=== PATIENT | male | born 1960 | race Hispanic/Latino ===

== ENCOUNTER → 2016-09-24 | Outpatient (CLI) | payer OTHER ==
[2016-09-24 14:30] LABS: ALBUMIN 4.2 GM/DL (3.2-5.2); ALKALINE PHOSPHATASE 76 U/L (45-117); ALT/SGPT 40 U/L (12-78); ANION GAP 8 MEQ/L (8-16); AST/SGOT 145 U/L (15-37); BILIRUBIN,TOTAL 0.7 MG/DL (0.2-1.0); BLOOD UREA NITROGEN 15 MG/DL (7-18); CALCIUM LEVEL 9.2 MG/DL (8.5-10.1); CARBON DIOXIDE LEVEL 28 MEQ/L (21-32); CHLORIDE LEVEL 106 MEQ/L (98-107); CHOLESTEROL LEVEL 180 MG/DL (<200); CREATININE FOR GFR 1.04 MG/DL (0.70-1.30); GLOMERULAR FILTRATION RATE > 60.0 (>56); GLUCOSE, FASTING 96 MG/DL (70-105); MAGNESIUM LEVEL 1.9 MG/DL (1.8-2.4); POTASSIUM SERUM 4.4 MEQ/L (3.5-5.1); SODIUM LEVEL 142 MEQ/L (136-145); TRIGLYCERIDES LEVEL 255 MG/DL (<150)
== END ==
LOC: M LAB 12:43
PROVIDERS: ATTEND Physician Assistant Medical
DX: E11.42 Type 2 diabetes mellitus with diabetic polyneuropathy (principal)

== ENCOUNTER → 2016-10-11 | Outpatient (CLI) | payer OTHER ==
--- NOTE | 2016-10-11 13:24 | REP ---
Urinary tract sonography and renal artery Doppler flow assessment: History: Systemic hypertension. Chronic kidney disease stage III. Proteinuria. Comparison CT images are from September 07, 2016. Sonographic findings: Scanning through the level of the urinary bladder shows no abnormality. Renal cortical echogenicity pattern is normal bilaterally. There is a 5.3 x 5.4 x 4.1 cm cyst laterally in the left mid kidney. There is another cyst in the left mid kidney measuring 2.4 x 2.3 x 2.4 cm. These are seen on CT. No renal mass is observed on either side. No hydronephrosis is seen on either side. No calculus is observed. Left renal dimensions of 13.1 x 6.8 x 6.3 cm. The right kidney measures 12.5 x 5.1 x 5.2 cm. Renal artery Doppler flow assessment: Peak systolic flow velocity in the abdominal aorta at the level of the main renal arteries is normal at 125.3 cm/sec. Peak systolic flow velocity in the left main renal artery is recorded at 135 .4 cm/sec and that in the right at 123.1 cm/sec. Renal to aortic flow velocity ratios are therefore normal at 1.0 on the right and 1.1 on the left. Resistive indices and acceleration times are measured in the intralobar arteries of the upper, mid and lower pole of each kidney and these values are normal bilaterally. Impression: There are two left renal cysts noted. No other morphologic abnormality noted. There is no renal artery Doppler flow evidence to suggest renal artery stenosis. Signed by Gama Hicks MD 10/11/2016 01:26 P
== END ==
LOC: M RAD 08:29
PROVIDERS: ATTEND Internal Medicine Cardiovascular Disease
DX: N18.2 Chronic kidney disease, stage 2 (mild) (principal); I12.9 Hypertensive chronic kidney disease with stage 1 through stage 4 chronic kidney disease, or unspecified chronic kidney disease; R80.9 Proteinuria, unspecified

== ENCOUNTER → 2016-11-01 | Outpatient (CLI) | payer OTHER ==
[2016-11-01 14:09] LABS: BASO % 0.9 % (0.0-1.0); EOS # 0.3 K/mm3 (0.0-0.50); EOS % 5.5 % (0.0-3.0); LARGE UNSTAINED CELL # 0.1 K/mm3 (0.0-0.4); LARGE UNSTAINED CELL % 2.4 % (0.0-4.0); LYMPH # 1.3 K/mm3 (1.5-4.5); LYMPH % 22.7 % (24.0-44.0); MEAN CORPUSCULAR HEMOGLOBIN 29.8 pg (27.0-33.0); MEAN CORPUSCULAR HGB CONC 34.3 g/dl (32.0-36.5); MEAN CORPUSCULAR VOLUME 87.1 fl (80.0-96.0); MONO # 0.4 K/mm3 (0.0-0.8); MONO % 8.3 % (0.0-5.0); NEUTROPHILS % 60.2 % (36.0-66.0); PLATELET COUNT, AUTOMATED 169 k/mm3 (150-450); RED CELL DISTRIBUTION WIDTH 13.4 % (11.5-14.5)
[2016-11-01 14:11] LABS: ALBUMIN 3.7 GM/DL (3.2-5.2); ALBUMIN/GLOBULIN RATIO 1.28 (1.00-1.93); ALKALINE PHOSPHATASE 68 U/L (45-117); ALT/SGPT 23 U/L (12-78); ANION GAP 7 MEQ/L (8-16); AST/SGOT 12 U/L (15-37); BILIRUBIN,TOTAL 0.9 MG/DL (0.2-1.0); BLOOD UREA NITROGEN 14 MG/DL (7-18); CALCIUM LEVEL 8.6 MG/DL (8.5-10.1); CARBON DIOXIDE LEVEL 28 MEQ/L (21-32); CHLORIDE LEVEL 105 MEQ/L (98-107); GLOMERULAR FILTRATION RATE > 60.0 (>56); GLUCOSE, FASTING 170 MG/DL (70-105); POTASSIUM SERUM 4.1 MEQ/L (3.5-5.1); SODIUM LEVEL 140 MEQ/L (136-145); TOTAL PROTEIN 6.6 GM/DL (6.4-8.2)
== END ==
LOC: M LAB 13:03
PROVIDERS: ATTEND Internal Medicine Gastroenterology
DX: K52.9 Noninfective gastroenteritis and colitis, unspecified (principal)

== ENCOUNTER → 2016-11-05 | Outpatient (CLI) | payer OTHER ==
[~2016-11-05] MED LIST: ABIL1TAB7 PO; BUSP10TA PO; DULO30CA PO; ELIQ5TAB PO; GABA-283 PO; GLIP10TA6 PO; HYDR-4274 PO; INSUH10VL SC; LEVO10VL IM; LISI-542 PO; LORA1SOL PO; METF1000 PO; METO-207 PO; RANI75TA9 PO; ROSU10TA PO; SPIR25TA2 PO; SYNT112T2 PO; TOUJ1.2I SC
[2016-11-05 10:59] LABS: ANION GAP 7 MEQ/L (8-16); BLOOD UREA NITROGEN 19 MG/DL (7-18); CALCIUM LEVEL 8.8 MG/DL (8.5-10.1); CARBON DIOXIDE LEVEL 30 MEQ/L (21-32); CHLORIDE LEVEL 105 MEQ/L (98-107); CREATININE FOR GFR 0.92 MG/DL (0.70-1.30); GLOMERULAR FILTRATION RATE > 60.0 (>56); GLUCOSE, FASTING 137 MG/DL (70-105); POTASSIUM SERUM 4.3 MEQ/L (3.5-5.1); SODIUM LEVEL 142 MEQ/L (136-145)
== END ==
LOC: M LAB 09:38
PROVIDERS: ATTEND Internal Medicine Cardiovascular Disease
DX: R80.0 Isolated proteinuria (principal)

== ENCOUNTER → 2016-11-18 | Outpatient (CLI) | payer OTHER ==
[~2016-11-18] VITALS: Ht 175.3 cm; Wt 118.8 kg
[~2016-11-18] MED LIST changes: +ALLE10TA2 PO; +DEXTROSE 50% 50 ML SYRINGE As Ordered ONE; +NS 1,000 ML IV SCH; +PROPOFOL 200 MG/20 ML VIAL As Ordered ONE
--- NOTE | 2016-11-18 15:26 | ROOR ---
Patient Name: Dragan Ayoub Procedure Date: 11/18/2016 3:01 PM Date of : 1960 Age: 56 Room: [facility] Gender: Male Note Status: Finalized Procedure: Colonoscopy Indications: Personal history of ulcerative colitis Providers: Manuel CAMPOS MD Referring MD: ANTOINETTE Ray Requesting Provider: Medicines: Monitored Anesthesia Care Complications: No immediate complications. Procedure: Pre-Anesthesia Assessment: - The heart rate, respiratory rate, oxygen saturations, blood pressure, adequacy of pulmonary ventilation, and response to care were monitored throughout the procedure. The Colonoscope was introduced through the anus and advanced to 5 cm into the ileum. The colonoscopy was performed without difficulty. The patient tolerated the procedure well. The quality of the bowel preparation was good. Findings: The perianal and digital rectal examinations were normal. The terminal ileum appeared normal. Segmental mild inflammation characterized by erythema and granularity was found in the mid rectum and in the distal rectum. Biopsies were taken with a cold forceps for histology. The exam was otherwise without abnormality on direct and retroflexion views. Biopsies were taken with a cold forceps in the rectum, in the sigmoid colon, in the descending colon, in the transverse colon and in the ascending colon for histology. Impression: - The perianal exam and examined portion of the ileum was normal. 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 Biopsied. - The examination was otherwise normal on direct and retroflexion views. - There is no visual evidence of colitis in the rest of the colon or terminal ileum. - Biopsies were taken with a cold forceps for histology in the rectum, in the sigmoid colon, in the descending colon, in the transverse colon and in the ascending colon. - (Ulcerative colitis is in remission, with mild residual proctitis present) Recommendation: - Resume Eliquis (apixaban) at prior dose today. 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 - To discuss todays findings, my office will call you in the next few days to schedule a follow up appointment. Manuel Campos MD Manuel CAMPOS MD 11/18/2016 3:25:38 PM This report has been signed electronically. Number of Addenda: 0 Note Initiated On: 11/18/2016 3:01 PM Estimated Blood Loss: Estimated blood loss: none.
[2016-11-18 15:40] VITALS: BP 145/84
== END | disposition home or self-care (01) ==
LOC: M OPP 12:53
PROVIDERS: ATTEND Internal Medicine Gastroenterology
DX: K51.90 Ulcerative colitis, unspecified, without complications (principal); K62.89 Other specified diseases of anus and rectum; I48.91 Unspecified atrial fibrillation; E11.9 Type 2 diabetes mellitus without complications; E03.9 Hypothyroidism, unspecified; R19.7 Diarrhea, unspecified; R12 Heartburn; M19.90 Unspecified osteoarthritis, unspecified site; M54.2 Cervicalgia; F41.9 Anxiety disorder, unspecified; F32.9 Major depressive disorder, single episode, unspecified; J45.909 Unspecified asthma, uncomplicated; G47.30 Sleep apnea, unspecified; R06.83 Snoring; Z88.0 Allergy status to penicillin; Z88.8 Allergy status to other drugs, medicaments and biological substances; Z79.01 Long term (current) use of anticoagulants; Z79.84 Long term (current) use of oral hypoglycemic drugs; Z79.4 Long term (current) use of insulin; Z79.899 Other long term (current) drug therapy; Z80.49 Family history of malignant neoplasm of other genital organs; F99 Mental disorder, not otherwise specified

== ENCOUNTER → 2016-12-04 | Outpatient (CLI) | payer OTHER ==
[~2016-12-04] MED LIST changes: -DEXTROSE 50% 50 ML SYRINGE As Ordered ONE; -NS 1,000 ML IV SCH; -PROPOFOL 200 MG/20 ML VIAL As Ordered ONE
--- NOTE | 2016-12-06 09:26 | REP ---
MRI BRAIN WITHOUT CONTRAST: HISTORY: Memory loss. Scattered punctate areas of increased signal intensity on T2-weighted images are present in the periventricular and subcortical white matter. This represents small vessel ischemic disease. There is no intraparenchymal hemorrhage, infarct, mass or midline shift. The ventricular system is normal in appearance. There is no extracerebral collection. Metal artifact is present overlying the left maxillary sinus and inferior left orbit. IMPRESSION: Minimal small vessel ischemic disease. Signed by Dragan Issa MD 12/06/2016 09:32 A
== END ==
LOC: M RAD 09:48
PROVIDERS: ATTEND Nurse Practitioner Psychiatric/Mental Health
DX: R41.3 Other amnesia (principal)

== ENCOUNTER → 2016-12-15 | Outpatient (CLI) | payer OTHER ==
[~2016-12-15] MED LIST changes: +CRES10TA32 PO; -ROSU10TA PO
--- NOTE | 2016-12-18 10:00 | SLEEPCENT ---
DATE OF PROCEDURE: 12/15/2016 Nocturnal polysomnography was performed for re-titration of pressure therapy in this patient with obstructive sleep apnea syndrome. For testing, a Respironics Nasal ComfortGel mask of medium size was used. 8 cm of water pressure were applied to the circuit and the lights were extinguished. 8 hours and 48 minutes of data were reviewed. There were 383 minutes of sleep identified. Sleep latency was prolonged at 38 minutes. Rapid eye movement (REM) latency was short at 39 minutes. Sleep architecture was fair with a period of wake between 12:30 and 1:45. Overall sleep efficiency was 73.3%. The patient's electrocardiogram (EKG) showed a sinus rhythm with an average heart rate of 56 beats per minute. Electroencephalogram (EEG) showed fairly normal waveforms for awake and sleep stages. Respiratory events were best palliated with CPAP at pressure of +10. Remaining measures of sleep physiology were normal. IMPRESSION: Obstructive sleep apnea syndrome (G47.33). RECOMMENDATION: Nightly use of pressure therapy 10 cm of water.
== END ==
LOC: M SLEEP 19:31
PROVIDERS: ATTEND Nurse Practitioner Adult Health
DX: G47.33 Obstructive sleep apnea (adult) (pediatric) (principal)

== ENCOUNTER → 2016-12-22 | Outpatient (REF) | payer OTHER ==
[2016-12-22 18:00] LABS: FOLATE 17.6 NG/ML (>5.4); FOLLICLE STIMULATING HORMONE 7.5 mIU/mL (1.4-18.1)
== END ==
LOC: M LAB REF 15:49
PROVIDERS: ATTEND Internal Medicine Endocrinology, Diabetes & Metabolism
DX: E29.1 Testicular hypofunction (principal); R53.83 Other fatigue

== ENCOUNTER → 2017-03-01 | Outpatient (REF) | payer OTHER ==
[2017-03-01 20:26] LABS: ALBUMIN 3.9 GM/DL (3.2-5.2); ALBUMIN/GLOBULIN RATIO 1.15 (1.00-1.93); ALKALINE PHOSPHATASE 78 U/L (45-117); ALT/SGPT 18 U/L (12-78); ANION GAP 5 MEQ/L (8-16); AST/SGOT 9 U/L (15-37); BILIRUBIN,TOTAL 0.4 MG/DL (0.2-1.0); BLOOD UREA NITROGEN 19 MG/DL (7-18); CALCIUM LEVEL 9.2 MG/DL (8.5-10.1); CARBON DIOXIDE LEVEL 27 MEQ/L (21-32); CHLORIDE LEVEL 107 MEQ/L (98-107); CREATININE FOR GFR 1.16 MG/DL (0.70-1.30); GLOMERULAR FILTRATION RATE > 60.0 (>56); GLUCOSE, FASTING 172 MG/DL (70-105); POTASSIUM SERUM 4.4 MEQ/L (3.5-5.1); SODIUM LEVEL 139 MEQ/L (136-145); TOTAL PROTEIN 7.3 GM/DL (6.4-8.2)
[2017-03-01 20:31] LABS: FREE T4 1.07 NG/DL (0.76-1.46)
[2017-03-01 20:46] LABS: BASO % 0.6 % (0.0-1.0); EOS # 0.2 K/mm3 (0.0-0.50); EOS % 2.8 % (0.0-3.0); LARGE UNSTAINED CELL # 0.2 K/mm3 (0.0-0.4); LARGE UNSTAINED CELL % 2.5 % (0.0-4.0); LYMPH % 25.4 % (24.0-44.0); MEAN CORPUSCULAR HGB CONC 34.1 g/dl (32.0-36.5); MONO # 0.6 K/mm3 (0.0-0.8); MONO % 7.1 % (0.0-5.0); NEUTROPHILS # 4.8 K/mm3 (1.8-7.7); NEUTROPHILS % 61.6 % (36.0-66.0); PLATELET COUNT, AUTOMATED 180 k/mm3 (150-450); RED CELL DISTRIBUTION WIDTH 12.7 % (11.5-14.5); WHITE BLOOD COUNT 7.8 K/mm3 (4.0-10.0)
== END ==
LOC: M SFHCADAM 14:55
PROVIDERS: ATTEND Physician Assistant Medical
DX: E11.42 Type 2 diabetes mellitus with diabetic polyneuropathy (principal)

== ENCOUNTER → 2017-06-10 | Outpatient (CLI) | payer OTHER ==
[~2017-06-10] MED LIST changes: -ABIL1TAB7 PO; +ABIL20TA5 PO; -HYDR-4274 PO; +HYDR50TA70 PO; -METF1000 PO; +METF10004 PO; -METO-207 PO; +METO1TAB7 PO
[2017-06-10 14:41] LABS: BLOOD UREA NITROGEN 18 MG/DL (7-18); GLOMERULAR FILTRATION RATE > 60.0 (>56)
== END ==
LOC: M LAB 13:51
PROVIDERS: ATTEND Physician Assistant Medical
DX: K86.89 Other specified diseases of pancreas (principal)

== ENCOUNTER → 2017-06-14 | Outpatient (CLI) | payer OTHER | LOC: M LAB 14:02 | PROVIDERS: ATTEND Nurse Practitioner Family | DX: E29.1 Testicular hypofunction (principal) ==

== ENCOUNTER → 2017-06-17 | Outpatient (CLI) | payer OTHER ==
[~2017-06-17] MED LIST changes: +PROHANCE 279.3MG/ML 15ML VIAL (A9576) As Ordered ONE; +PROHANCE 279.3MG/ML 5ML VIAL (A9576) As Ordered ONE
--- NOTE | 2017-06-17 15:09 | REP ---
MRI study of the abdomen and pancreas without and with IV gadolinium: History: Follow-up pancreatic "cyst". Comparison CT study is from September 07, 2016. MRI contrast dose: 23 mL of intravenous ProHance is administered. MRI technique: Axial and coronal T1 and T2-weighted scans were obtained. Sequences include spin-echo, fast spin echo, in and out of phase, and dynamically acquired post gadolinium enhanced 3-D thrive images. MRI findings: No focal hepatic or splenic lesion is seen. There are several simple cysts affecting the left kidney. The largest of these is at mid pole level measuring 5.1 x 5.4 x 5.0 cm. There is a small subcentimeter cyst in the right mid kidney. There is no evidence of hydronephrosis on either side. No renal mass lesion is seen. No adrenal lesion is observed on either side. No intrahepatic biliary ductal dilation is observed. The common bile duct is normal measuring 6 mm. The main pancreatic duct is normal in caliber. No pancreatic cyst or mass is seen. There is a lesion adjacent to the tail of the pancreas and the splenic hilus, which corresponds to the rim calcified lesion seen on CT. This is not a cyst. It is felt to be most compatible with a partially thrombosed splenic artery aneurysm. There is no evidence of progressive enlargement. It is actually less well displayed on MRI than it was on the previous CT study. There is no evidence of splenic infarct. No other pancreatic lesion is seen. There are collateral venous channels noted in the left upper quadrant. These could be traced back to the superior mesenteric vein, question portal hypertension. The patient's splenic vein is tiny consistent with occlusion or near occlusion of the splenic vein at the splenic hilus. The splenic artery is patent. No adenopathy is noted. No evidence of ascites. Post gadolinium enhanced images show no other abnormal gadolinium enhancement. Impression: 1. Several simple cysts left kidney. 2. The lesion in the pancreatic tail seen on the CT study from September 07, 2016 is felt to be most compatible with a splenic artery aneurysm partially thrombosed. There is, however, evidence of occlusion of the splenic vein with spleno-mesenteric venous collateral channels visible. The lesion is better displayed on CT. No pancreatic cyst or mass is evident. Signed by Gama Hicks MD 06/17/2017 03:58 P
== END ==
LOC: M RAD 12:38
PROVIDERS: ATTEND Internal Medicine Gastroenterology
DX: K86.89 Other specified diseases of pancreas (principal)
CPT/HCPCS: 74183; A9576

== ENCOUNTER → 2017-07-22 | Outpatient (CLI) | payer OTHER ==
[~2017-07-22] MED LIST changes: +ISOVUE-370 76% 100ML VIAL (Q9967) As Ordered ONE; -PROHANCE 279.3MG/ML 15ML VIAL (A9576) As Ordered ONE; -PROHANCE 279.3MG/ML 5ML VIAL (A9576) As Ordered ONE
--- NOTE | 2017-07-22 18:22 | REP ---
CT angiography of the abdomen with IV contrast: History: Splenic artery aneurysm. Comparison MRI study of 06/17/[address] study 09/07/2016. CT contrast dose: 100 ml of Isovue [address] technique: Helical scanning is acquired. 3 mm axial images are reformatted. Coronal and sagittal multiplanar re-formation images are generated. Coronal MIP images are generated on 3-D workstation along with surface rendered 3-D re-formation images. Non angiographic CT findings: The patient is post cholecystectomy. There are two cysts in the left kidney the largest of which measures 5.8 cm in greatest diameter. There is a granulomatous calcification in the left lobe of the liver. Mild fatty infiltration of the liver is seen. Vascular findings: The splenic vein is tiny and streak-like and may be occluded. There are collateral venous channels again noted in the left upper abdomen and epigastric region of the abdomen. No other venous abnormality is seen. There is some vascular calcification in the aorta especially infrarenal abdominal aorta. No significant renal artery celiac or superior mesenteric artery abnormality. There is a rim calcified lesion near the splenic hilus adjacent the pancreatic tail measuring 2.3 x 2.4 x 1.3 cm. This is actually smaller than on CT study from September 07, 2016. There is some dystrophic calcification in the caudal end of this otherwise rim calcified lesion. Just superior to this lesion is a very tortuous but patent splenic artery. The finding is compatible with a thrombosed splenic artery aneurysm. No intra-aneurysmal contrast enhancement is appreciated. No other significant vascular abnormality. 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 Tortuous splenic artery. Possibly related is a tiny streak-like splenic vein which is likely occluded as there are venous collaterals in the left upper quadrant as previously noted. No pancreatic mass is visible. Post cholecystectomy and left renal cysts are incidental findings. Signed by Gama Hicks MD 07/25/2017 06:48 P
== END ==
LOC: M RAD 16:09
PROVIDERS: ATTEND Surgery Vascular Surgery
DX: I72.8 Aneurysm of other specified arteries (principal); I70.0 Atherosclerosis of aorta; N28.1 Cyst of kidney, acquired
CPT/HCPCS: 74175; Q9967

== ENCOUNTER → 2017-07-29 | Outpatient (CLI) | payer OTHER ==
[~2017-07-29] MED LIST changes: -ISOVUE-370 76% 100ML VIAL (Q9967) As Ordered ONE
== END ==
LOC: M LAB 10:56
PROVIDERS: ATTEND Psychiatry & Neurology Psychiatry
DX: Z51.81 Encounter for therapeutic drug level monitoring (principal); Z79.899 Other long term (current) drug therapy

== ENCOUNTER → 2017-08-15 | Outpatient (CLI) | payer OTHER ==
[2017-08-15 10:19] LABS: BASO # 0.1 10^3/uL (0.0-0.2); EOS # 0.2 10^3/uL (0.0-0.50); EOS % 2.6 % (0.0-3.0); IMMATURE GRANULOCYTE % 0.3 % (0-0); LYMPH # 1.5 10^3/uL (1.5-4.5); LYMPH % 20.9 % (24.0-44.0); MEAN CORPUSCULAR HEMOGLOBIN 29.7 pg (27.0-33.0); MEAN CORPUSCULAR HGB CONC 34.7 g/dl (32.0-36.5); MEAN CORPUSCULAR VOLUME 85.5 fl (80.0-96.0); MONO # 0.6 10^3/uL (0.0-0.8); MONO % 8.1 % (0.0-5.0); NEUTROPHILS # 4.8 10^3/uL (1.8-7.7); NEUTROPHILS % 67.1 % (36.0-66.0); PLATELET COUNT, AUTOMATED 157 10^3/uL (150-450); WHITE BLOOD COUNT 7.2 10^3/uL (4.0-10.0)
[2017-08-15 11:23] LABS: ALBUMIN 3.8 GM/DL (3.2-5.2); ALBUMIN/GLOBULIN RATIO 1.19 (1.00-1.93); ALKALINE PHOSPHATASE 82 U/L (45-117); ALT/SGPT 17 U/L (12-78); ANION GAP 6 MEQ/L (8-16); AST/SGOT 9 U/L (7-37); BILIRUBIN,TOTAL 0.9 MG/DL (0.2-1.0); BLOOD UREA NITROGEN 16 MG/DL (7-18); CALCIUM LEVEL 8.9 MG/DL (8.5-10.1); CARBON DIOXIDE LEVEL 31 MEQ/L (21-32); CHLORIDE LEVEL 103 MEQ/L (98-107); CHOLESTEROL LEVEL 102 MG/DL (<200); CREATININE FOR GFR 1.12 MG/DL (0.70-1.30); GLOMERULAR FILTRATION RATE > 60.0 (>56); GLUCOSE, FASTING 91 MG/DL (70-105); POTASSIUM SERUM 4.1 MEQ/L (3.5-5.1); SODIUM LEVEL 140 MEQ/L (136-145); TRIGLYCERIDES LEVEL 156 MG/DL (<150)
== END ==
LOC: M LAB 09:30
PROVIDERS: ATTEND Physician Assistant Medical
DX: E11.42 Type 2 diabetes mellitus with diabetic polyneuropathy (principal); E66.01 Morbid (severe) obesity due to excess calories

== ENCOUNTER → 2017-09-23 | Outpatient (CLI) | payer OTHER ==
[2017-09-23 14:50] LABS: TESTOSTERONE 176 NG/DL (241-827)
== END ==
LOC: M LAB 10:44
DX: E29.1 Testicular hypofunction (principal)
CPT/HCPCS: 84403

== ENCOUNTER → 2017-12-15 | Outpatient (CLI) | payer OTHER ==
[2017-12-15 12:24] LABS: BASO # 0.1 10^3/uL (0.0-0.2); BASO % 1.1 % (0.0-1.0); EOS # 0.2 10^3/uL (0.0-0.50); EOS % 3.8 % (0.0-3.0); HEMOGLOBIN 15.2 g/dl (13.5-17.5); IMMATURE GRANULOCYTE % 0.5 % (0-3.0); LYMPH # 1.7 10^3/uL (1.5-4.5); LYMPH % 27.7 % (24.0-44.0); MEAN CORPUSCULAR HEMOGLOBIN 29.1 pg (27.0-33.0); MEAN CORPUSCULAR HGB CONC 33.8 g/dl (32.0-36.5); MEAN CORPUSCULAR VOLUME 86.2 fl (80.0-96.0); MONO # 0.6 10^3/uL (0.0-0.8); NEUTROPHILS # 3.5 10^3/uL (1.8-7.7); NEUTROPHILS % 57.9 % (36.0-66.0); PLATELET COUNT, AUTOMATED 170 10^3/uL (150-450); RED BLOOD COUNT 5.22 10^6/uL (4.30-6.10); RED CELL DISTRIBUTION WIDTH 12.4 % (11.5-14.5); WHITE BLOOD COUNT 6.1 10^3/uL (4.0-10.0)
[2017-12-15 12:54] LABS: ESTIMATED AVERAGE GLUCOSE 180 MG/DL (60-110); HEMOGLOBIN A1c 7.9 %
[2017-12-15 13:00] LABS: MALB URINE SIEMENS 16.7 MG/L; MAU/CREAT RATIO 8.2 MCG/MG (0.0-30.0)
[2017-12-15 13:01] LABS: ALBUMIN 4.2 GM/DL (3.2-5.2); ALBUMIN/GLOBULIN RATIO 1.27 (1.00-1.93); ALKALINE PHOSPHATASE 86 U/L (45-117); ALT/SGPT 23 U/L (12-78); ANION GAP 7 MEQ/L (8-16); AST/SGOT 12 U/L (7-37); BLOOD UREA NITROGEN 17 MG/DL (7-18); CALCIUM LEVEL 9.4 MG/DL (8.5-10.1); CARBON DIOXIDE LEVEL 28 MEQ/L (21-32); CHLORIDE LEVEL 107 MEQ/L (98-107); CHOLESTEROL LEVEL 141 MG/DL (<200); CHOLESTEROL RISK RATIO 3.279 (<5); CREATININE FOR GFR 0.98 MG/DL (0.70-1.30); FREE T4 1.15 NG/DL (0.76-1.46); GLOMERULAR FILTRATION RATE > 60.0 (>56); GLUCOSE, FASTING 112 MG/DL (70-100); HDL CHOLESTEROL 43 MG/DL (>40); LDL CHOLESTEROL 39.6 MG/DL (<100); NON-HDL-C 98 MG/DL; POTASSIUM SERUM 4.6 MEQ/L (3.5-5.1); SODIUM LEVEL 142 MEQ/L (136-145); TOTAL PROTEIN 7.5 GM/DL (6.4-8.2); TRIGLYCERIDES LEVEL 292 MG/DL (<150)
== END ==
LOC: M LAB 11:31
DX: E11.42 Type 2 diabetes mellitus with diabetic polyneuropathy (principal)
CPT/HCPCS: 84443

== ENCOUNTER → 2018-03-21 | Outpatient (CLI) | payer OTHER | LOC: M RAD 06:25 | DX: I72.8 Aneurysm of other specified arteries (principal) | CPT/HCPCS: 76705 ==

== ENCOUNTER → 2018-03-21 | Outpatient (CLI) | payer OTHER ==
[2018-03-21 07:30] LABS: HEMATOCRIT 46.5 % (42.0-52.0); HEMOGLOBIN 15.2 g/dl (13.5-17.5)
[2018-03-21 07:52] LABS: PSA SCREENING 0.48 NG/ML (< 4.0)
[2018-03-21 09:25] LABS: TESTOSTERONE 923 NG/DL (241-827)
== END ==
LOC: M LAB 06:59
DX: E29.1 Testicular hypofunction (principal)
CPT/HCPCS: 84403

== ENCOUNTER → 2018-03-24 | Outpatient (REF) | payer OTHER ==
[2018-03-24 19:44] LABS: ALBUMIN 3.9 GM/DL (3.2-5.2); ALBUMIN/GLOBULIN RATIO 1.18 (1.00-1.93); ALKALINE PHOSPHATASE 82 U/L (45-117); ALT/SGPT 29 U/L (12-78); ANION GAP 11 MEQ/L (8-16); AST/SGOT 16 U/L (7-37); BILIRUBIN,TOTAL 0.7 MG/DL (0.2-1.0); BLOOD UREA NITROGEN 18 MG/DL (7-18); CALCIUM LEVEL 8.6 MG/DL (8.5-10.1); CARBON DIOXIDE LEVEL 25 MEQ/L (21-32); CHLORIDE LEVEL 104 MEQ/L (98-107); CHOLESTEROL LEVEL 126 MG/DL (<200); CHOLESTEROL RISK RATIO 3.405 (<5); GLOMERULAR FILTRATION RATE > 60.0 (>56); GLUCOSE, FASTING 192 MG/DL (70-100); HDL CHOLESTEROL 37 MG/DL (>40); LDL CHOLESTEROL 35.6 MG/DL (<100); NON-HDL-C 89 MG/DL; SODIUM LEVEL 140 MEQ/L (136-145); TOTAL PROTEIN 7.2 GM/DL (6.4-8.2); TRIGLYCERIDES LEVEL 267 MG/DL (<150)
[2018-03-24 19:45] LABS: ESTIMATED AVERAGE GLUCOSE 163 MG/DL (60-110); HEMOGLOBIN A1c 7.3 %
== END ==
LOC: M SFHCADAM 15:07
DX: E11.42 Type 2 diabetes mellitus with diabetic polyneuropathy (principal)

== ENCOUNTER → 2018-03-29 | Outpatient (CLI) | payer OTHER ==
[2018-03-31 12:15] LABS: HEPATITIS B SURFACE ANTIGEN NEGATIVE (NEGATIVE)
[2018-04-01 00:05] LABS: QUANTIFERON GOLD TB Negative (Negative); TB Test (QFT) Antigen Minus Ni <0.01 IU/mL (.); TB Test (QFT) Mitogen 8.46 IU/mL (.); TB Test (QFT) Nil 0.14 IU/mL (.)
== END ==
LOC: M LAB 17:05
DX: R12 Heartburn (principal)
CPT/HCPCS: 87340

== ENCOUNTER 2018-03-31 08:16 | Emergency (ER) | payer OTHER ==
[2018-03-31] MEDS: METHOCARBAMOL 500 MG TAB PO (08:58)
[2018-03-31 09:07] LABS: BASO # 0.1 10^3/uL (0.0-0.2); EOS # 0.3 10^3/uL (0.0-0.50); EOS % 5.4 % (0.0-3.0); HEMATOCRIT 48.6 % (42.0-52.0); HEMOGLOBIN 16.2 g/dl (13.5-17.5); IMMATURE GRANULOCYTE % 0.2 % (0-3.0); LYMPH % 18.6 % (24.0-44.0); MEAN CORPUSCULAR HEMOGLOBIN 27.2 pg (27.0-33.0); MEAN CORPUSCULAR HGB CONC 33.3 g/dl (32.0-36.5); MEAN CORPUSCULAR VOLUME 81.7 fl (80.0-96.0); MONO # 0.4 10^3/uL (0.0-0.8); MONO % 8.2 % (0.0-5.0); NEUTROPHILS # 3.4 10^3/uL (1.8-7.7); NEUTROPHILS % 66.6 % (36.0-66.0); PLATELET COUNT, AUTOMATED 169 10^3/uL (150-450); RED BLOOD COUNT 5.95 10^6/uL (4.30-6.10); RED CELL DISTRIBUTION WIDTH 12.9 % (11.5-14.5); WHITE BLOOD COUNT 5.2 10^3/uL (4.0-10.0)
[2018-03-31 09:30] LABS: ANION GAP 8 MEQ/L (8-16); BLOOD UREA NITROGEN 15 MG/DL (7-18); CALCIUM LEVEL 8.5 MG/DL (8.5-10.1); CARBON DIOXIDE LEVEL 25 MEQ/L (21-32); CHLORIDE LEVEL 105 MEQ/L (98-107); CPK CREATINE PHOSPHOKINASE 112 U/L (39-308); CREATININE FOR GFR 1.24 MG/DL (0.70-1.30); GLOMERULAR FILTRATION RATE > 60.0 (>56); GLUCOSE, FASTING 127 MG/DL (70-100); MAGNESIUM LEVEL 1.8 MG/DL (1.8-2.4); POTASSIUM SERUM 4.2 MEQ/L (3.5-5.1); SODIUM LEVEL 138 MEQ/L (136-145)
[2018-03-31] MEDS: MAGNESIUM OXIDE 400 MG TAB (MAG-OX) PO (09:54)
== END 2018-03-31 10:33 | disposition home or self-care (01) ==
LOC: M ED 08:16
DX: M79.604 Pain in right leg (principal); E11.9 Type 2 diabetes mellitus without complications; I10 Essential (primary) hypertension; E78.5 Hyperlipidemia, unspecified; G47.30 Sleep apnea, unspecified; Z79.01 Long term (current) use of anticoagulants; Z79.84 Long term (current) use of oral hypoglycemic drugs; Z79.899 Other long term (current) drug therapy; Z88.0 Allergy status to penicillin; Z88.8 Allergy status to other drugs, medicaments and biological substances
CPT/HCPCS: 93971

== ENCOUNTER → 2018-04-13 | Outpatient (CLI) | payer OTHER | LOC: M ADAMS 11:19 | DX: M51.36 Other intervertebral disc degeneration, lumbar region (principal) | CPT/HCPCS: 72110 ==

== ENCOUNTER → 2018-04-18 | Outpatient (CLI) | payer OTHER ==
[2018-04-18 18:40] LABS: ANION GAP 7 MEQ/L (8-16); BLOOD UREA NITROGEN 15 MG/DL (7-18); CALCIUM LEVEL 9.5 MG/DL (8.5-10.1); CARBON DIOXIDE LEVEL 31 MEQ/L (21-32); CHLORIDE LEVEL 101 MEQ/L (98-107); CREATININE FOR GFR 1.45 MG/DL (0.70-1.30); GLOMERULAR FILTRATION RATE 53.2 (>56); GLUCOSE, FASTING 279 MG/DL (70-100); MAGNESIUM LEVEL 1.9 MG/DL (1.8-2.4); POTASSIUM SERUM 3.8 MEQ/L (3.5-5.1); SODIUM LEVEL 139 MEQ/L (136-145)
== END ==
LOC: M LAB 17:16
DX: I11.9 Hypertensive heart disease without heart failure (principal); I48.0 Paroxysmal atrial fibrillation
CPT/HCPCS: 83735

== ENCOUNTER → 2018-04-26 | Outpatient (CLI) | payer OTHER | LOC: M RAD 07:02 | DX: M51.36 Other intervertebral disc degeneration, lumbar region (principal) | CPT/HCPCS: 72148 ==

== ENCOUNTER → 2018-05-01 | Outpatient (CLI) | payer OTHER ==
[2018-05-01 18:30] LABS: ANION GAP 9 MEQ/L (8-16); BLOOD UREA NITROGEN 20 MG/DL (7-18); CALCIUM LEVEL 9.1 MG/DL (8.5-10.1); CARBON DIOXIDE LEVEL 29 MEQ/L (21-32); CHLORIDE LEVEL 100 MEQ/L (98-107); CREATININE FOR GFR 1.35 MG/DL (0.70-1.30); GLOMERULAR FILTRATION RATE 57.8 (>56); GLUCOSE, FASTING 211 MG/DL (70-100); POTASSIUM SERUM 4.2 MEQ/L (3.5-5.1); SODIUM LEVEL 138 MEQ/L (136-145)
== END ==
LOC: M LAB 16:54
DX: I11.9 Hypertensive heart disease without heart failure (principal); I48.0 Paroxysmal atrial fibrillation
CPT/HCPCS: 80048

== ENCOUNTER 2018-05-02 07:11 | Outpatient (RCR) | payer OTHER | END 2018-05-12 | LOC: M PT 07:11 | DX: Z51.89 Encounter for other specified aftercare (principal); M51.36 Other intervertebral disc degeneration, lumbar region | CPT/HCPCS: 97010 ==

== ENCOUNTER 2018-05-18 07:05 | Outpatient (RCR) | payer OTHER | END 2018-06-11 | LOC: M PT 07:05 | DX: Z51.89 Encounter for other specified aftercare (principal); M51.36 Other intervertebral disc degeneration, lumbar region | CPT/HCPCS: 97010 ==

== ENCOUNTER → 2018-06-12 | Outpatient (CLI) | payer OTHER ==
[2018-06-12 11:45] LABS: HEMATOCRIT 51.6 % (42.0-52.0); HEMOGLOBIN 17.1 g/dl (13.5-17.5)
[2018-06-12 12:24] LABS: TESTOSTERONE 988 NG/DL (241-827)
== END ==
LOC: M LAB 10:37
DX: E29.1 Testicular hypofunction (principal)
CPT/HCPCS: 84403

== ENCOUNTER 2018-09-28 12:43 | Emergency (ER) | payer OTHER ==
[~2018-09-28] VITALS: Ht 177.8 cm; Wt 124.1 kg
[~2018-09-28 12:43] MED LIST changes: +AMAN100C18 PO; +AMAN100T PO; +ATOR1TAB19 PO; +BASA100I SUBQ; +CHLO125TA PO; -GABA-283 PO; +GABA-845 PO; +HUMI40KI2 SUBQ; +INVE156I IM; +LORA-243 PO; +METO50TA7 PO; +OMEP40CA2 PO; +QUET1TAB8 PO; +RANI75TA15 PO; -RANI75TA9 PO; +ROBA500T PO; +SPIR-10 PO; -SPIR25TA2 PO
[2018-09-28] MEDS ORDERED: ACETAMINOPHEN 325 MG TAB PO ONE (13:15)
--- NOTE | 2018-09-28 13:33 | REP ---
CT Head without contrast HISTORY: Head injury COMPARISON: None There is no intraparenchymal hemorrhage, acute infarct, mass or midline shift. The ventricular system and cortical sulci are dilated consistent with minimal volume loss. A small amount of subarachnoid hemorrhage is present at the right vertex. There is no extra cerebral collection. There is no fracture. The visualized sinuses are clear. IMPRESSION: 1. Minimal volume loss. 2. There is a small amount of subarachnoid hemorrhage at the right vertex. Results were discussed with Dr. Solano at 01:30 p.m. this date. Electronically Signed by Dragan Issa MD 09/28/2018 01:25 P
[2018-09-28 13:43] LABS: BASO # 0.1 10^3/uL (0.0-0.2); BASO % 0.9 % (0.0-1.0); EOS # 0.8 10^3/uL (0.0-0.50); EOS % 7.4 % (0.0-3.0); HEMATOCRIT 41.4 % (42.0-52.0); HEMOGLOBIN 14.1 g/dl (13.5-17.5); LYMPH # 1.5 10^3/uL (1.5-4.5); LYMPH % 14.8 % (24.0-44.0); MEAN CORPUSCULAR HEMOGLOBIN 28.5 pg (27.0-33.0); MEAN CORPUSCULAR HGB CONC 34.1 g/dl (32.0-36.5); MEAN CORPUSCULAR VOLUME 83.6 fl (80.0-96.0); MONO # 1.1 10^3/uL (0.0-0.8); MONO % 10.3 % (0.0-5.0); NEUTROPHILS # 6.7 10^3/uL (1.8-7.7); NEUTROPHILS % 66.2 % (36.0-66.0); PLATELET COUNT, AUTOMATED 167 10^3/uL (150-450); RED BLOOD COUNT 4.95 10^6/uL (4.30-6.10); WHITE BLOOD COUNT 10.2 10^3/uL (4.0-10.0)
--- NOTE | 2018-09-28 13:56 | REP ---
Thoracic spine series: Three views. History: Trauma. Findings: Thoracic vertebral body heights are preserved and alignment is normal. There is diffuse degenerative disc disease with well established osteophyte formation anteriorly. On lateral film this appears to be contiguous or fused osteophyte formation. No fracture or collapse is seen. No paravertebral soft-tissue mass is seen. Pedicles and posterior elements are intact. Impression: Degenerative spondylosis changes. No traumatic abnormality noted. Electronically Signed by Gama Hicks MD 09/28/2018 06:09 P
[2018-09-28 13:58] LABS: INR 1.16
[2018-09-28 14:20] LABS: ALBUMIN 3.9 GM/DL (3.2-5.2); BILIRUBIN,TOTAL 0.7 MG/DL (0.2-1.0); CALCIUM LEVEL 8.9 MG/DL (8.5-10.1); CREATININE FOR GFR 2.38 MG/DL (0.70-1.30); POTASSIUM SERUM 5.5 MEQ/L (3.5-5.1); TOTAL PROTEIN 6.8 GM/DL (6.4-8.2)
[2018-09-28 15:32] VITALS: BP 154/83
== END 2018-09-28 15:34 | disposition short-term general hospital (02) ==
LOC: M ED 12:43 → EDBD 12:43 → M ED 15:34
DX: S06.6X0A Traumatic subarachnoid hemorrhage without loss of consciousness, initial encounter (principal); W00.9XXA Unspecified fall due to ice and snow, initial encounter; Y92.9 Unspecified place or not applicable; Y93.9 Activity, unspecified; Y99.9 Unspecified external cause status; E11.9 Type 2 diabetes mellitus without complications; J45.909 Unspecified asthma, uncomplicated; G47.30 Sleep apnea, unspecified; K51.90 Ulcerative colitis, unspecified, without complications; M47.894 Other spondylosis, thoracic region; Z79.01 Long term (current) use of anticoagulants; Z79.84 Long term (current) use of oral hypoglycemic drugs; Z79.899 Other long term (current) drug therapy; Z88.8 Allergy status to other drugs, medicaments and biological substances; Z88.0 Allergy status to penicillin

== ENCOUNTER → 2018-10-05 | Outpatient (REF) | payer OTHER ==
[2018-10-05 13:41] LABS: BASO # 0.1 10^3/uL (0.0-0.2); BASO % 1.1 % (0.0-1.0); EOS # 0.5 10^3/uL (0.0-0.50); HEMATOCRIT 43.7 % (42.0-52.0); HEMOGLOBIN 14.6 g/dl (13.5-17.5); LYMPH # 1.1 10^3/uL (1.5-4.5); LYMPH % 16.2 % (24.0-44.0); MEAN CORPUSCULAR HEMOGLOBIN 28.7 pg (27.0-33.0); MEAN CORPUSCULAR HGB CONC 33.4 g/dl (32.0-36.5); MEAN CORPUSCULAR VOLUME 85.9 fl (80.0-96.0); MONO # 0.6 10^3/uL (0.0-0.8); MONO % 9.2 % (0.0-5.0); NEUTROPHILS # 4.6 10^3/uL (1.8-7.7); NEUTROPHILS % 66.1 % (36.0-66.0); PLATELET COUNT, AUTOMATED 198 10^3/uL (150-450); RED BLOOD COUNT 5.09 10^6/uL (4.30-6.10)
[2018-10-05 15:30] LABS: ALBUMIN 4.1 GM/DL (3.2-5.2); ALT/SGPT 25 U/L (12-78); BILIRUBIN,TOTAL 0.6 MG/DL (0.2-1.0); BLOOD UREA NITROGEN 17 MG/DL (7-18); CALCIUM LEVEL 9.4 MG/DL (8.5-10.1); CARBON DIOXIDE LEVEL 24 MEQ/L (21-32); CHLORIDE LEVEL 98 MEQ/L (98-107); CHOLESTEROL LEVEL 143 MG/DL (<200); CHOLESTEROL RISK RATIO 3.666 (<5); CREATININE FOR GFR 1.29 MG/DL (0.70-1.30); FREE T4 1.13 NG/DL (0.76-1.46); GLOMERULAR FILTRATION RATE > 60.0 (>56); GLUCOSE, FASTING 254 MG/DL (70-100); HDL CHOLESTEROL 39 MG/DL (>40); LDL CHOLESTEROL 48 MG/DL (<100); NON-HDL-C 104 MG/DL; POTASSIUM SERUM 4.4 MEQ/L (3.5-5.1); SODIUM LEVEL 136 MEQ/L (136-145); TOTAL PROTEIN 7.3 GM/DL (6.4-8.2); TRIGLYCERIDES LEVEL 281 MG/DL (<150)
[2018-10-05 16:04] LABS: HEMOGLOBIN A1c 8.2 %
== END ==
LOC: M SFHCADAM 10:59
PROVIDERS: ATTEND Physician Assistant Medical
DX: E11.42 Type 2 diabetes mellitus with diabetic polyneuropathy (principal); I48.2 Chronic atrial fibrillation; G47.33 Obstructive sleep apnea (adult) (pediatric); E03.9 Hypothyroidism, unspecified

== ENCOUNTER 2018-10-10 11:48 | Day surgery (SDC) | payer OTHER ==
[~2018-10-10] VITALS: Ht 175.3 cm; Wt 122.9 kg
[~2018-10-10 11:48] MED LIST changes: +NS 1,000 ML IV SCH
[2018-10-10] MEDS ORDERED: fentaNYL 100 MCG/2 ML INJECTION (J3010) As Ordered ONE (13:50)
[2018-10-10] MEDS ORDERED: LIDOCAINE 2% INJ 100 MG/5 ML SDV (FOR ANES.) As Ordered ONE (13:50)
[2018-10-10] MEDS ORDERED: PROPOFOL 200 MG/20 ML VIAL As Ordered ONE (13:50)
--- NOTE | 2018-10-10 13:56 | ROOR ---
Patient Name: Dragan Ayoub Procedure Date: 10/10/2018 1:39 PM Date of : 1960 Age: 58 Room: [facility] Gender: Male Note Status: Finalized Procedure: Upper GI endoscopy Indications: Heartburn Providers: Manuel CAMPOS MD Referring MD: ANTOINETTE Ray Requesting Provider: Medicines: Monitored Anesthesia Care Complications: No immediate complications. Procedure: Pre-Anesthesia Assessment: - The heart rate, respiratory rate, oxygen saturations, blood pressure, adequacy of pulmonary ventilation, and response to care were monitored throughout the procedure. The Endoscope was introduced through the mouth, and advanced to the second part of duodenum. The upper GI endoscopy was accomplished without difficulty. The patient tolerated the procedure well. Findings: Patchy mild inflammation characterized by erythema and granularity was found in the gastric antrum. Biopsies were taken with a cold forceps for histology. The exam was otherwise without abnormality. Impression: - Mild gastritis. Biopsied. - The examination was otherwise normal. Recommendation: - Use Prilosec (omeprazole) 40 mg PO daily. - Telephone endoscopist for pathology results in 2 weeks. - (the script was sent to your pharmacy on file) Manuel Campos MD Manuel CAMPOS MD 10/10/2018 1:56:06 PM This report has been signed electronically. Number of Addenda: 0 Note Initiated On: 10/10/2018 1:39 PM Estimated Blood Loss: Estimated blood loss: none.
[2018-10-10 16:45] VITALS: BP 155/85
== END 2018-10-10 18:20 | disposition home or self-care (01) ==
LOC: M OPP 11:48
PROVIDERS: ATTEND Internal Medicine Gastroenterology
DX: R12 Heartburn (principal); K29.70 Gastritis, unspecified, without bleeding; E11.9 Type 2 diabetes mellitus without complications; G47.30 Sleep apnea, unspecified; E03.9 Hypothyroidism, unspecified; Z79.4 Long term (current) use of insulin; Z79.899 Other long term (current) drug therapy; Z88.0 Allergy status to penicillin; Z88.8 Allergy status to other drugs, medicaments and biological substances
CPT/HCPCS: 43239; 88305; J3010

== ENCOUNTER 2018-10-13 13:41 | Emergency (ER) | payer OTHER ==
[~2018-10-13] VITALS: Ht 175.3 cm; Wt 123.2 kg
[~2018-10-13 13:41] MED LIST changes: -NS 1,000 ML IV SCH
[2018-10-13 13:42] VITALS: BP 162/76
[2018-10-13] MEDS ORDERED: ROBA500T PO (14:25)
== END 2018-10-13 14:48 | disposition home or self-care (01) ==
LOC: M ED 13:41
DX: S16.1XXA Strain of muscle, fascia and tendon at neck level, initial encounter (principal); S29.012A Strain of muscle and tendon of back wall of thorax, initial encounter; V58.0XXA Driver of pick-up truck or van injured in noncollision transport accident in nontraffic accident, initial encounter; Y92.89 Other specified places as the place of occurrence of the external cause; I10 Essential (primary) hypertension; I48.91 Unspecified atrial fibrillation; K21.9 Gastro-esophageal reflux disease without esophagitis; F41.9 Anxiety disorder, unspecified; Z79.899 Other long term (current) drug therapy; Z79.01 Long term (current) use of anticoagulants; Z79.84 Long term (current) use of oral hypoglycemic drugs; Z88.0 Allergy status to penicillin; Z88.8 Allergy status to other drugs, medicaments and biological substances

== ENCOUNTER → 2018-10-27 | Outpatient (CLI) | payer OTHER ==
--- NOTE | 2018-10-27 08:41 | REP ---
CT Head without contrast HISTORY: Subarachnoid hemorrhage COMPARISON: 09/28/2018 There is no intraparenchymal hemorrhage, acute infarct, mass or midline shift. The ventricular system and cortical sulci are dilated consistent with minimal volume loss. There is no extra cerebral collection. There is no fracture. The visualized sinuses are clear. IMPRESSION: Minimal volume loss. Electronically Signed by Dragan Issa MD 10/27/2018 08:32 A
== END ==
LOC: M RAD 07:07
PROVIDERS: ATTEND Physician Assistant Medical
DX: G93.89 Other specified disorders of brain (principal)

== ENCOUNTER → 2018-11-02 | Outpatient (CLI) | payer OTHER ==
[2018-11-02 07:36] LABS: HEMATOCRIT 41.6 % (42.0-52.0)
== END ==
LOC: M LAB 07:07
PROVIDERS: ATTEND Nurse Practitioner Family
DX: E29.1 Testicular hypofunction (principal)

== ENCOUNTER → 2018-11-14 | Outpatient (CLI) | payer OTHER ==
[2018-11-14 11:59] LABS: BASO # 0.1 10^3/uL (0.0-0.2); BASO % 0.8 % (0.0-1.0); EOS # 0.3 10^3/uL (0.0-0.50); EOS % 5.1 % (0.0-3.0); HEMATOCRIT 41.5 % (42.0-52.0); LYMPH # 1.2 10^3/uL (1.5-4.5); LYMPH % 18.5 % (24.0-44.0); MEAN CORPUSCULAR HGB CONC 33.7 g/dl (32.0-36.5); MEAN CORPUSCULAR VOLUME 85.9 fl (80.0-96.0); MONO # 0.6 10^3/uL (0.0-0.8); MONO % 10.2 % (0.0-5.0); NEUTROPHILS # 4.1 10^3/uL (1.8-7.7); NEUTROPHILS % 65.1 % (36.0-66.0); PLATELET COUNT, AUTOMATED 152 10^3/uL (150-450); RED BLOOD COUNT 4.83 10^6/uL (4.30-6.10); WHITE BLOOD COUNT 6.3 10^3/uL (4.0-10.0)
[2018-11-14 12:49] LABS: ERYTHROCYTE SEDIMENTATION RATE 4 mm/hr (0-20)
[2018-11-14 13:11] LABS: ALBUMIN 4.1 GM/DL (3.2-5.2); ALT/SGPT 26 U/L (12-78); BILIRUBIN,TOTAL 0.6 MG/DL (0.2-1.0); BLOOD UREA NITROGEN 12 MG/DL (7-18); CALCIUM LEVEL 9.2 MG/DL (8.5-10.1); CARBON DIOXIDE LEVEL 28 MEQ/L (21-32); CHLORIDE LEVEL 102 MEQ/L (98-107); CREATININE FOR GFR 1.26 MG/DL (0.70-1.30); GLOMERULAR FILTRATION RATE > 60.0 (>56); GLUCOSE, FASTING 108 MG/DL (70-100); POTASSIUM SERUM 4.3 MEQ/L (3.5-5.1); RHEUMATOID FACTOR QUANT < 10.0 IU/ML (<15.0); SODIUM LEVEL 139 MEQ/L (136-145); TOTAL 25(OH) VITAMIN D 18.6 NG/ML (30.0-100.0); TOTAL PROTEIN 7.1 GM/DL (6.4-8.2)
[2018-11-15 10:27] LABS: ANTINUCLEAR ANTIBODIES DIRECT Negative (Negative)
== END ==
LOC: M LAB 11:17
PROVIDERS: ATTEND Psychiatry & Neurology Neurology
DX: R51 Headache (principal); R42 Dizziness and giddiness

== ENCOUNTER 2019-01-04 11:56 | Inpatient (IN) | payer OTHER ==
[~2019-01-04] VITALS: Ht 175.3 cm; Wt 119.1 kg
[~2019-01-04 11:56] MED LIST changes: -ALLE10TA2 PO; +BASA100I SC; -BASA100I SUBQ; +CRES10TA PO; -CRES10TA32 PO; -DULO30CA PO; +DULO30CA9 PO; +HUMI40KI2 SC; -HUMI40KI2 SUBQ; +LORA-753 PO; -LORA1SOL PO; +LORA5SOL12 PO
[2019-01-04] MEDS ORDERED: INVE1.75 IM (12:06)
[2019-01-04 13:12] LABS: BASO # 0.1 10^3/uL (0.0-0.2); BASO % 1.1 % (0.0-1.0); EOS # 0.9 10^3/uL (0.0-0.50); EOS % 9.1 % (0.0-3.0); HEMATOCRIT 42.6 % (42.0-52.0); HEMOGLOBIN 14.1 g/dl (13.5-17.5); LYMPH # 1.8 10^3/uL (1.5-4.5); LYMPH % 17.3 % (24.0-44.0); MEAN CORPUSCULAR HEMOGLOBIN 28.7 pg (27.0-33.0); MEAN CORPUSCULAR HGB CONC 33.1 g/dl (32.0-36.5); MEAN CORPUSCULAR VOLUME 86.6 fl (80.0-96.0); MONO # 1.2 10^3/uL (0.0-0.8); MONO % 11.4 % (0.0-5.0); NEUTROPHILS # 6.3 10^3/uL (1.8-7.7); NEUTROPHILS % 60.8 % (36.0-66.0); PLATELET COUNT, AUTOMATED 153 10^3/uL (150-450); RED BLOOD COUNT 4.92 10^6/uL (4.30-6.10); WHITE BLOOD COUNT 10.3 10^3/uL (4.0-10.0)
--- NOTE | 2019-01-04 13:29 | REP ---
CT brain without contrast: History: Altered mental status. Comparison brain CT study is from October 27, 2018. CT findings: Digital preliminary territory business manager radiograph is unremarkable. Bone window settings show no bony destructive lesion or skull fracture. Visualized paranasal sinuses are clear. There is mild vascular calcification in the distal carotid and distal vertebral arteries again noted. no intraorbital abnormality is seen. There is mild generalized volume loss again noted. No intracranial hemorrhage is seen. No mass, extra-axial fluid collection, or midline shift is observed. No infarct is seen. Ruth white differentiation pattern is intact. Impression: Vascular calcification and minimal diffuse atrophy again noted. No acute intracranial lesion. Electronically Signed by Gama Hicks MD 01/04/2019 01:21 P
[2019-01-04 14:03] LABS: ACETAMINOPHEN LEVEL < 2.0 UG/ML (10.0-30.0); ALBUMIN 4.1 GM/DL (3.2-5.2); ALT/SGPT 25 U/L (12-78); BILIRUBIN,DIRECT 0.3 MG/DL (0.0-0.2); BILIRUBIN,TOTAL 1.1 MG/DL (0.2-1.0); BLOOD UREA NITROGEN 33 MG/DL (7-18); CALCIUM LEVEL 9.2 MG/DL (8.5-10.1); CARBON DIOXIDE LEVEL 29 MEQ/L (21-32); CHLORIDE LEVEL 102 MEQ/L (98-107); CPK CREATINE PHOSPHOKINASE 1021 U/L (39-308); CREATININE FOR GFR 3.78 MG/DL (0.70-1.30); ETHYL ALCOHOL (ETHANOL) 0.003 % (0.000-0.010); GLOMERULAR FILTRATION RATE 17.6 (>56); GLUCOSE, FASTING 87 MG/DL (70-100); MB/CK RELATIVE INDEX 2.22 (< OR =4); POTASSIUM SERUM 4.4 MEQ/L (3.5-5.1); SALICYLATE LEVEL < 1.7 MG/DL (5.0-30.0); SODIUM LEVEL 139 MEQ/L (136-145); TOTAL PROTEIN 7.4 GM/DL (6.4-8.2); TROPONIN I < 0.02 NG/ML (< 0.10)
[2019-01-04] MEDS ORDERED: NS 1,000 ML IV ONE (14:15)
--- NOTE | 2019-01-04 14:55 | REP ---
Chest x-ray: Two views. History: Admission chest x-ray. Comparison chest x-ray: August 19, 2016. Findings: EKG monitoring electrodes are seen. The lungs are well inflated and clear. Pleural angles are sharp. Heart size is normal. There are degenerative changes in the thoracic spine. Impression: No acute disease. Electronically Signed by Gama Hicks MD 01/04/2019 02:48 P
[2019-01-04] MEDS ORDERED: GABA600T4 PO (14:56)
[2019-01-04] MEDS ORDERED: AMAN100T PO (14:56)
[2019-01-04] MEDS ORDERED: DRIS50003 PO (14:56)
[2019-01-04] MEDS ORDERED: LISI10TA4 PO (14:56)
[2019-01-04] MEDS ORDERED: HYDR50CA2 PO (14:56)
[2019-01-04] MEDS ORDERED: CHLO25TA PO (14:56)
[2019-01-04] MEDS ORDERED: BUSP15TA47 PO (14:56)
[2019-01-04] MEDS ORDERED: ELIQ5TAB PO (14:56)
[2019-01-04] MEDS ORDERED: DULO20CA27 PO (15:01)
[2019-01-04] MEDS ORDERED: DULO1CAP3 PO (15:01)
[2019-01-04] MEDS ORDERED: ADME100I SC (15:05)
[2019-01-04] MEDS ORDERED: TEST30SO TD (15:10)
[2019-01-04] MEDS ORDERED: DEXTROSE 50% 50 ML SYRINGE IV PRN (16:15)
[2019-01-04] MEDS ORDERED: GLUCAGON FOR INJ 1 MG VIAL (J1610) SC PRN (16:15)
[2019-01-04] MEDS: HumaLOG INSULIN (NovoLOG) PER UNIT SC SCH (17:30)
--- NOTE | 2019-01-04 18:25 | REP ---
REASON FOR EXAMINATION: Renal failure. COMPARISON EXAMINATION: 10/11/2016 which showed two left renal cysts. Right kidney measures 12.1 x 4.4 x 5.4 cm and the left kidney measures 13.7 x 7.9 x 6.2 cm. There are no solid masses. There is no hydronephrosis. There are two cysts in the left kidney which have increases in size slightly compared to the prior exam. The largest measures 3.8 x 3.3 x 4.5 cm and the other measures 2.4 x 2.5 x 2.9 cm. IMPRESSION: Slightly increase in size simple left renal cyst. There are no other significant changes compared to the prior exam. Electronically Signed by Gilberto Cage DO 01/04/2019 07:50 P
[2019-01-04] MEDS: GLUCOSE 4 GM CHEW TABLET PO PRN ×2 (18:27→18:42)
[2019-01-04] MEDS: busPIRone 10 MG TAB PO SCH (18:42)
[2019-01-04] MEDS: QUEtiapine FUMARATE 100 MG TAB PO SCH (18:42)
[2019-01-04] MEDS: METOPROLOL TART 50 MG TAB PO SCH (18:42)
[2019-01-04] MEDS ORDERED: HumaLOG INSULIN (NovoLOG) PER UNIT SC SCH (21:00)
[2019-01-04] MEDS ORDERED: LEVEMIR (INSULIN DETEMIR) 1 UNITS/0.01ML SC SCH (21:00)
[2019-01-04 21:18] LABS: AMPHETAMINES LEVEL URINE NEGATIVE (NEGATIVE); BARBITURATES URINE NEGATIVE (NEGATIVE); BENZODIAZEPINES URINE NEGATIVE (NEGATIVE); CANNABINOIDS URINE NEGATIVE (NEGATIVE); COCAINE METABOLITE URINE NEGATIVE (NEGATIVE); METHADONE URINE NEGATIVE (NEGATIVE); OPIATES URINE NEGATIVE (NEGATIVE); PHENCYCLIDINE URINE NEGATIVE (NEGATIVE)
[2019-01-04] MEDS: GABAPENTIN 100 MG CAP PO SCH (21:58)
[2019-01-04] MEDS: ATORVASTATIN 10 MG TAB PO SCH (21:59)
[2019-01-04] MEDS: DOCUSATE SODIUM 100 MG CAP PO SCH (21:59)
[2019-01-04 22:00] VITALS: BP 156/79
--- NOTE | 2019-01-04 22:40 | HPEPDOC ---
General Date of Admission 01/04/19 Chief Complaint The patient is a 58-year-old male admitted with a reason for visit of Allergic Reaction. Source: Patient, Old records, Other (correctional counselor/case manager) Exam Limitations: Mild cognitive slowing History of Present Illness 58 year old male with Schizoaffective disorder, Diabetes, Hypertension, HLD, obesity, MARY on CPAP, moderate persistent asthma, diabetic neuropathy, hypothyroidism, GERD, Afib, recurrent falls last was yesterday when his right leg became mushy and gave way. Subarachnoid hemorrhage in sep 2018 after a fall, severe lumber central canal stenosis was brought in by his correctional counselor/case manager for tremors, unsteady gait and increased hallucinations. Patient's psych medication was changed about 1 month ago and a different dosage of longer acting form of the medication was given. This change was in fact done due to his hallucinations which had increased even prior to the change . Over the past month his hallucinations have continued to increase and over the last week he has become very tremulous with difficulty in writing, difficulty in walking , staggering gait, frequent loss of balance with a fall yesterday. He also complains of difficulty in talking says that he cannot properly control his tongue. Today he had met his correctional counselor/case manager at the [facility] office to fill out some forms when the case manger noticed the tremulousness and gait abnormality and brought him to the ED. In the ED his CT head was negative for any acute events. it was initially felt that his symptoms were related to his psych medication change. however labs showed elevated BUN and creatine with elevated CPK. Patient was found to have Los and rhabdomyolysis and admitted for this. Home Medications Scheduled Adalimumab (Humira Pen) 40 Mg/0.8 Ml Kit, 40 MG SC Q2WK, (Reported) PT DUE TODAY FOR THIS MED. WAS UNABLE TO TAKE IT PRIOR TO ARRIVAL Amantadine HCl (Amantadine) 100 Mg Tablet, 200 MG PO QAM, (Reported) Amantadine HCl (Amantadine) 100 Mg Tablet, 100 MG PO DAILY, (Reported) TAKES @ NOON Apixaban (Eliquis) 5 Mg Tablet, 5 MG PO BID, (Reported) Atorvastatin Calcium (Atorvastatin Calcium) 10 Mg Tab, 10 MG PO QHS, (Reported) Buspirone HCl (Buspirone HCl) 15 Mg Tablet, 30 MG PO BID, (Reported) 0800,1700 Chlorthalidone (Chlorthalidone) 25 Mg Tablet, 12.5 MG PO DAILY, (Reported) Duloxetine HCl (Duloxetine HCl) 20 Mg Capsule.dr, 20 MG PO DAILY, (Reported) TAKE WITH 60MG CAP. 80MG TOTAL Duloxetine Hcl (Duloxetine HCl) 60 Mg Capsule.dr, 60 MG PO DAILY, (Reported) TAKE WITH 20MG CAP. 80MG TOTAL Ergocalciferol (Vitamin D2) (Drisdol) 50,000 Unit Capsule, 50,000 UNIT PO QWEEK, (Reported) MONDAYS Gabapentin (Gabapentin) 600 Mg Tablet, 600 MG PO TID, (Reported) 0800,1200,1700 Hydroxyzine Pamoate (Hydroxyzine Pamoate) 50 Mg Capsule, 100 MG PO QHS, (Reported) Insulin Glargine,Hum.rec.anlog (Basaglar Kwikpen U-100) 100 Unit/Ml Inj, 50 UNITS SC QHS, (Reported) Insulin Lispro (Admelog) 100 Unit/1 Ml Vial, SC AC, (Reported) PER SLIDING SCALE Levothyroxine Sodium (Synthroid) 112 Mcg Tab, 112 MCG PO DAILY, (Reported) Lisinopril (Lisinopril) 10 Mg Tablet, 10 MG PO DAILY, (Reported) Loratadine (Loratadine) 10 Mg Tab, 10 MG PO QPM, (Reported) TAKES @ 1700 Metformin HCl (Metformin HCl) 1,000 Mg Tab, 1,000 MG PO BID, (Reported) 0800,1700 Metoprolol Tartrate (Metoprolol Tartrate) 50 Mg Tab, 50 MG PO BID, (Reported) 0800,1700 Omeprazole (Omeprazole) 40 Mg Cap, 40 MG PO DAILY, (Reported) Paliperidone Palmitate (Invega Trinza) 819 Mg/2.625 Ml Syringe, 819 MG IM Q3M, (Reported) Quetiapine Fumarate (Quetiapine Fumarate) 100 Mg Tab, 100 MG PO QPM, (Reported) TAKES @ 1700 Spironolactone (Spironolactone) 25 Mg Tab, 12.5 MG PO DAILY, (Reported) Testosterone (Testosterone) 30 Mg/1.5 Ml Kim.md.visualization developer, 30 MG TD QHS, (Reported) APPLY TO THE UNDERARMS Allergies Coded Allergies: Penicillins (Verified Allergy, Unknown, 01/04/19) mesalamine (Verified Allergy, Unknown, lialda, 01/04/19) fluoxetine (Verified Adverse Reaction, Mild, hallucinations, 01/04/19) Past Medical History Medical History Schizoaffective disorder, Diabetes, Hypertension, HLD, obesity, MARY on CPAP, moderate persistent asthma, diabetic neuropathy, hypothyroidism, GERD, Afib, recurrent falls, Lumber central canal stenosis, ulcerative colitis, allergic rhinitis, diastolic dysfunction Surgical History cholecystectomy tonsillectomy Social History * Smoker: Denies Alcohol: Denies Drugs: denies A-FIB/CHADSVASC A-FIB History Current/History of A-Fib/PAF?: Yes Current Oral Anticoagulant The: Yes Review of Systems Constitutional: Reports: Weakness, Fatigue; Denies: Chills, Fever, Malaise, Night Sweats Eyes: Denies: Pain, Vision change, Conjunctivae inflammation, Eyelid inflammation, Redness, Other ENT: Denies: Head Aches, Ear Pain, Dysphagia, Sinus Congestion, Post Nasal Drip, Sore Throat, Epistaxis, Other Symptoms Skin: Denies: Rash, Lesions, Jaundice, Bruising, Itching, Dry, Breakdown, Nail Changes, Other Pulmonary: Denies: Dyspnea, Cough, Pleuritic Chest Pain, Other Symptoms Cardiovascular: Denies: Chest Pain, Palpitations, Orthopnea, Paroxysmal Noc. Dyspnea, Edema, Lt Headedness, Other Symptoms Gastrointestinal: Denies: Nausea, Vomiting, Abdominal Pain, Diarrhea, Constipation, Melena, Hematochezia, Other Symptoms Genitourinary: Reports: Other Symptoms (decreased urination) Hematologic: Denies: Bruising, Bleeding Excessively, Petecchia, Purpura, Enlarged Lymph Nodes, Other Hematologic Musculoskeletal: Reports: Leg Pain, Muscle Pain Neurological: Reports: Weakness, Incoordination, Change in speech, Other Symptoms (tremors) Psych: Reports: Other Psych (auditory and visual hallucinations) Physical Examination General Exam: Positive: Alert, Cooperative, No Acute Distress Eye Exam: Positive: PERRLA, Conjunctiva & lids normal, EOMI; Negative: Sclera icteric ENT Exam: Positive: Mucous membr. moist/pink, Tongue Midline Neck Exam: Positive: Supple; Negative: JVD, thyromegaly Chest Exam: Positive: Clear to auscultation, Normal air movement Heart Exam: Positive: Rate Normal, Regular Rhythm, Normal S1, Normal S2; Negative: Murmurs, Rubs Telemetry: Positive: No significant arrhythmia, Sinus Abdomen Exam: Positive: Normal bowel sounds, Soft; Negative: Tenderness, Hepatospenomegaly Extremity Exam: Positive: Normal pulses; Negative: Clubbing, Cyanosis, Edema Skin Exam: Positive: Rash (seborrhic dematitis of the face and scalp), Pruritus Psych Exam: Positive: Memory Intact Vital Signs Vital Signs Date Time Temp Pulse Resp B/P (MAP) Pulse Ox O2 Delivery O2 Flow Rate FiO2 01/04/19 15:30 60 147/71 (96) 100 01/04/19 11:58 97.4 18 Room Air Laboratory Data Labs 24H Laboratory Tests 2 01/04/19 12:57: Immature Granulocyte % (Auto) 0.3, White Blood Count 10.3H, Red Blood Count 4.92, Hemoglobin 14.1, Hematocrit 42.6, Mean Corpuscular Volume 86.6, Mean Corpuscular Hemoglobin 28.7, Mean Corpuscular Hemoglobin Concent 33.1, Red Cell Distribution Width 12.9, Platelet Count 153, Neutrophils (%) (Auto) 60.8, Lymp hocytes (%) (Auto) 17.3L, Monocytes (%) (Auto) 11.4H, Eosinophils (%) (Auto) 9.1H, Basophils (%) (Auto) 1.1H, Neutrophils # (Auto) 6.3, Lymphocytes # (Auto) 1.8, Monocytes # (Auto) 1.2H, Eosinophils # (Auto) 0.9H, Basophils # (Auto) 0.1, Nucleated Red Blood Cells % (auto) 0.0, Anion Gap 8, Glomerular Filtration Rate 17.6L, Calcium Level 9.2, Aspartate Amino Transf (AST/SGOT) 39H, Alanine Aminotransferase (ALT/SGPT) 25, Alkaline Phosphatase 76, Total Bilirubin 1.1H, Direct Bilirubin 0.3H, Total Creatine Kinase 1021H, Creatine Kinase MB 23.0H, Creatine Kinase MB Relative Index 2.22, Troponin I < 0.02, Total Protein 7.4, Albumin 4.1, Albumin/Globulin Ratio 1.24, Thyroid Stimulating Hormone (TSH) 1.430, Salicylates Level < 1.7L, Acetaminophen Level < 2.0L, Ethyl Alcohol Level 0.003 CBC/BMP Laboratory Tests 01/04/19 12:57 Red Blood Count 4.92, Mean Corpuscular Volume 86.6, Mean Corpuscular Hemoglobin 28.7, Mean Corpuscular Hemoglobin Concent 33.1, Red Cell Distribution Width 12.9, Neutrophils (%) (Auto) 60.8, Lymphocytes (%) (Auto) 17.3 L, Monocytes (%) (Auto) 11.4 H, Eosinophils (%) (Auto) 9.1 H, Basophils (%) (Auto) 1.1 H, Neutrophils # (Auto) 6.3, Lymphocytes # (Auto) 1.8, Monocytes # (Auto) 1.2 H, Eosinophils # (Auto) 0.9 H, Basophils # (Auto) 0.1 Assessment/Plan 58 year old male with Schizoaffective disorder, Diabetes, Hypertension, HLD, obesity, MARY on CPAP, moderate persistent asthma, diabetic neuropathy, hypothyroidism, GERD, Afib, recurrent falls last was yesterday when his right leg became mushy and gave way. Subarachnoid hemorrhage in sep 2018 after a fall, severe lumber central canal stenosis was brought in by his correctional counselor/case manager for tremors, unsteady gait and increased hallucinations. Patient's psych medication was changed about 1 month ago and a different dosage of longer acting form of the medication was given. This change was in fact done due to his hallucinations which had increased even prior to the change . Over the past month his hallucinations have continued to increase and over the last week he has become very tremulous with difficulty in writing, difficulty in walking , staggering gait, frequent loss of balance with a fall yesterday. He also complains of difficulty in talking says that he cannot properly control his tongue. Today he had met his correctional counselor/case manager at the [facility] office to fill out some forms when the case manger noticed the tremulousness and gait abnormality and brought him to the ED. In the ED his CT head was negative for any acute events. it was initially felt that his symptoms were related to his psych medication change. however labs showed elevated BUN and creatine with elevated CPK. Patient was found to have Los and rhabdomyolysis and admitted for this. LOS renal US does not show any obstruction Most probably poor oral intake in view of his aggravation of hallucinations and schizoaffective disorder on the back ground of Lisinopril, diuretics. will continue with IVF. Monitor intake and output. denies any use of NSAIDS or any antibiotics recently. though noted to have high peripheral eosinophilia. will get urine eosinophils. Rhabdomyolysis due to falls at home. May also be due to tremor and rigidity going on for about a month after the medication change. will continue with IVF. Diabetes with DIabetic neuropathy will monitor FS and put him on lispro as per sliding sclae . will also give very low dose of levemir. will hold metformin due to renal failure will reduce gabapentin dosage due renal failure Hypertension will hold lisinopril and diuretics continue metoprolol will give amlodipine in its place Hypothyroid will continue synthroid Scizoaffective disorder continue with home meds currently on Invega, seroquel, buspirone, cymbalta Crohn's disease on Humira as an outpateint GERD continue omeprazole. Paroxysmal Afib now in sinus rhythm continue metoprolol and eliquis Hyperlipidemia on stain DVT prophylaxis has been ordered. Plan / VTE VTE Prophylaxis Ordered?: Yes NIKA SETH MD Jan 04, 2019 16:26
[2019-01-04] MEDS: NS 1,000 ML IV SCH (23:07)
[2019-01-05] MEDS ORDERED: ACETAMINOPHEN TAB 650MG DOSE (2X325MG) PO PRN (02:30)
[2019-01-05 06:00] VITALS: BP 132/60
[2019-01-05 06:03] LABS: BASO # 0.1 10^3/uL (0.0-0.2); BASO % 1.3 % (0.0-1.0); EOS # 0.7 10^3/uL (0.0-0.50); HEMATOCRIT 38.7 % (42.0-52.0); HEMOGLOBIN 12.7 g/dl (13.5-17.5); LYMPH # 1.5 10^3/uL (1.5-4.5); LYMPH % 23.6 % (24.0-44.0); MEAN CORPUSCULAR HEMOGLOBIN 28.5 pg (27.0-33.0); MEAN CORPUSCULAR HGB CONC 32.8 g/dl (32.0-36.5); MEAN CORPUSCULAR VOLUME 86.8 fl (80.0-96.0); MONO # 0.8 10^3/uL (0.0-0.8); MONO % 12.7 % (0.0-5.0); NEUTROPHILS # 3.1 10^3/uL (1.8-7.7); NEUTROPHILS % 50.2 % (36.0-66.0); PLATELET COUNT, AUTOMATED 145 10^3/uL (150-450); RED BLOOD COUNT 4.46 10^6/uL (4.30-6.10); WHITE BLOOD COUNT 6.2 10^3/uL (4.0-10.0)
[2019-01-05] MEDS: LEVOTHYROXINE 112MCG TABLET (0.112MG) PO SCH (06:16)
[2019-01-05 06:29] LABS: CALCIUM LEVEL 9.1 MG/DL (8.5-10.1); CREATININE FOR GFR 1.96 MG/DL (0.70-1.30); GLOMERULAR FILTRATION RATE 37.6 (>56); POTASSIUM SERUM 3.9 MEQ/L (3.5-5.1)
[2019-01-05] MEDS: OMEPRAZOLE 20 MG CAP PO SCH (09:02)
[2019-01-05] MEDS: AMANTADINE 100 MG CAP PO SCH ×2 (09:02→12:32)
[2019-01-05] MEDS: DULoxetine 30 MG CAP (CYMBALTA) PO SCH (09:03)
[2019-01-05] MEDS: GABAPENTIN 100 MG CAP PO SCH ×3 (09:03→21:58)
[2019-01-05] MEDS: busPIRone 10 MG TAB PO SCH ×2 (09:03→16:50)
[2019-01-05] MEDS: METOPROLOL TART 50 MG TAB PO SCH ×2 (09:04→16:56)
[2019-01-05] MEDS: amLODIPine 10 MG TAB PO SCH (09:04)
[2019-01-05] MEDS: APIXABAN 5 MG TAB (ELIQUIS) PO SCH ×2 (09:04→21:58)
[2019-01-05] MEDS: HumaLOG INSULIN (NovoLOG) PER UNIT SC SCH ×3 (09:05→21:00)
[2019-01-05] MEDS: DOCUSATE SODIUM 100 MG CAP PO SCH ×2 (09:05→21:58)
--- NOTE | 2019-01-05 12:09 | IPNPDOC ---
Subjective Date Seen The patient was seen on 01/05/19. Subjective Chief Complaint/HPI Feels less shaky today. No new complaints Constitutional: Denies: Chills, Fever Pulmonary: Denies: Dyspnea, Cough Cardiovascular: Denies: Chest Pain, Palpitations, Orthopnea Gastrointestinal: Denies: Nausea, Vomiting, Abdominal Pain, Diarrhea, Constipation Objective Physical Examination General Exam: Positive: Alert, Cooperative, No Acute Distress Eye Exam: Positive: PERRLA, Conjunctiva & lids normal, EOMI; Negative: Sclera icteric ENT Exam: Positive: Mucous membr. moist/pink, Tongue Midline Neck Exam: Positive: Supple; Negative: JVD, thyromegaly Chest Exam: Positive: Clear to auscultation, Normal air movement Heart Exam: Positive: Rate Normal, Regular Rhythm, Normal S1, Normal S2; Negative: Murmurs, Rubs Telemetry: Positive: No significant arrhythmia, Sinus Abdomen Exam: Positive: Normal bowel sounds, Soft; Negative: Tenderness, Hepatospenomegaly Extremity Exam: Positive: Normal pulses; Negative: Clubbing, Cyanosis, Edema Skin Exam: Positive: Rash (seborrhic dematitis of the face and scalp), Pruritus Neuro Exam: Positive: Normal Speech, Normal Tone Psych Exam: Positive: Mental status NL, Memory Intact A-FIB/CHADSVASC A-FIB History Current/History of A-Fib/PAF?: Yes Current Oral Anticoagulant The: Yes Assessment /Plan Problems (1) LOS (acute kidney injury) Status: Acute Response to Treatment: Improving Problem Text: 01/05: Likely related to poor po intake in combination with diuretic and GENOVEVA inhibitors. Renal function improving with IVF. Lisinopril and Spironolactone held. Renal US: Slightly increase in size simple left renal cyst. There are no other significant changes compared to the prior exam. (2) Rhabdomyolysis Status: Acute Problem Text: Secondary to frequent falls. Cont IVF - repeat CPK today (3) Orthostatic lightheadedness Status: Chronic Problem Text: Patient describes orthostatic symptoms when stands quickly causing him to feel unsteady and probably contributing to his falls. This may be multifactorial - Perhaps some element of autonomic dysfunction from his diabetes combined with meds that can exacerbate this including Genoveva inhibitors, Hydroxyzine and the Invega. His symptoms seem to have worsened when his Invega dose was increased in September (4) Schizo-affective schizophrenia Status: Chronic Problem Text: Invega dose was increased in September by Harjinder Pandey, but his hallucinations have worsened on this dose. Will stop the Invega and will need f/u with Harjinder Pandey as outpatient. Also on Amantidine which could contribute to hallucinations - ? Hold this? Remains on Cymbalta, Buspar and Seroquel. (5) Frequent falls Problem Text: see above (6) Diabetes Status: Chronic Problem Text: Had hypoglycemia on admission - he reports not eating since breakfast yesterday morning which likley contributed tot he hypoglycemia. We will plan to continue long acting insulin and SSI at lower than home dose until he is eating better. (7) Tremor Status: Acute Response to Treatment: Improving Problem Text: May be related to EPS from the Invega (8) Atrial fibrillation Status: Chronic Response to Treatment: Stable Problem Text: Rate controlled on Metoprolol. Cont Eliquis. Plan/VTE VTE Prophylaxis Ordered?: Yes (Eliquis) Plan Therapy: PT, OT Family Medicine Attending Note: I saw and examined Mr. Ayoub, discussed with CHANTELLE Mcclellan. Agree with her note as documented. He seems to be doing well with his rhabdomyolysis and acute kidney injury. I will increase his fluid rate from 75 to 150 mL per hour to facilitate quicker clearance of his creatinine kinase. I'm going to consult a psychiatrist for a review of his medications. I'm aware that the long-acting Invega injection cannot be on done, but possibly some of his other medications can be adjusted around it. Additionally I think he is on some medications for extraparametal side effects. I wonder whether these are helping her making things worse. Hopefully psychiatry can assist with these decisions. 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) Disposition [facility] PT[facility]OT VS[facility]/I&O Vital Signs Date Time Temp Pulse Resp B/P (MAP) Pulse Ox O2 Delivery O2 Flow Rate FiO2 01/05/19 09:04 68 132/62 01/05/19 06:00 99.1 22 95 01/04/19 20:48 Room Air I&O- Last 24 Hours up to 6 AM 01/05/19 06:00 Intake Total 825 ml Output Total 1300 ml Balance -475 ml Laboratory Data 24H LABS Laboratory Tests 2 01/04/19 12:57: Immature Granulocyte % (Auto) 0.3, White Blood Count 10.3H, Red Blood Count 4.92, Hemoglobin 14.1, Hematocrit 42.6, Mean Corpuscular Volume 86.6, Mean Corpuscular Hemoglobin 28.7, Mean Corpuscular Hemoglobin Concent 33.1, Red Cell Distribution Width 12.9, Platelet Count 153, Neutrophils (%) (Auto) 60.8, Lymphocytes (%) (Auto) 17.3L, Monocytes (%) (Auto) 11.4H, Eosinophils (%) (Auto) 9.1H, Basophils (%) (Auto) 1.1H, Neutrophils # (Auto) 6.3, Lymphocytes # (Auto) 1.8, Monocytes # (Auto) 1.2H, Eosinophils # (Auto) 0.9H, Basophils # (Auto) 0.1, Nucleated Red Blood Cells % (auto) 0.0, Anion Gap 8, Glomerular Filtration Rate 17.6L, Calcium Level 9.2, Aspartate Amino Transf (AST/SGOT) 39H, Alanine Aminotransferase (ALT/SGPT) 25, Alkaline Phosphatase 76, Total Bilirubin 1.1H, Direct Bilirubin 0.3H, Total Creatine Kinase 1021H, Creatine Kinase MB 23.0H, Creatine Kinase MB Relative Index 2.22, Troponin I < 0.02, Total Protein 7.4, Albumin 4.1, Albumin/Globulin Ratio 1.24, Thyroid Stimulating Hormone (TSH) 1.430, Salicylates Level < 1.7L, Acetaminophen Level < 2.0L, Ethyl Alcohol Level 0.003 01/04/19 18:15: Bedside Glucose (Misc Panel) 45L 01/04/19 18:39: Bedside Glucose (Misc Panel) 58L 01/04/19 19:06: Bedside Glucose (Misc Panel) 115H 01/04/19 20:48: Urine Color YELLOW, Urine Appearance HAZY, Urine pH 5.0, Urine Specific [place] 1.017, Urine Protein NEGATIVE, Urine Glucose (UA) NEGATIVE, Urine Ketones NEGATIVE, Urine Blood NEGATIVE, Urine Nitrite NEGATIVE, Urine Bilirubin NEGAT JONATAN, Urine Urobilinogen 0.2, Urine Leukocyte Esterase NEGATIVE, Urine WBC (Auto) 2, Urine RBC (Auto) 1, Urine Hyaline Casts (Auto) 22, Urine Bacteria (Auto) NEGATIVE, Urine Squamous Epithelial Cells 0, Urine Sperm (Auto) , Urine Amphetamines Screen NEGATIVE, Urine Benzodiazepines Screen NEGATIVE, Urine Opiates Screen NEGATIVE, Urine Methadone Screen NEGATIVE, Urine Barbiturates Screen NEGATIVE, Urine Phencyclidine Screen NEGATIVE, Urine Cocaine Metabolite Screen NEGATIVE, Urine Cannabinoids Screen NEGATIVE 01/04/19 21:40: Bedside Glucose (Misc Panel) 172H 01/05/19 02:04: Bedside Glucose (Misc Panel) 125H 01/05/19 05:19: Immature Granulocyte % (Auto) 0.2, White Blood Count 6.2, Red Blood Count 4.46, Hemoglobin 12.7L, Hematocrit 38.7L, Mean Corpuscular Volume 86.8, Mean Corpuscular Hemoglobin 28.5, Mean Corpuscular Hemoglobin Concent 32.8, Red Cell Distribution Width 12.9, Platelet Count 145L, Neutrophils (%) (Auto) 50.2, Lymph ocytes (%) (Auto) 23.6L, Monocytes (%) (Auto) 12.7H, Eosinophils (%) (Auto) 12.0H, Basophils (%) (Auto) 1.3H, Neutrophils # (Auto) 3.1, Lymphocytes # (Auto) 1.5, Monocytes # (Auto) 0.8, Eosinophils # (Auto) 0.7H, Basophils # (Auto) 0.1, Nucleated Red Blood Cells % (auto) 0.0, Anion Gap 6L, Glomerular Filtration Rate 37.6L, Blood Urea Nitrogen 23H, Creatinine 1.96H, Sodium Level 140, Potassium Level 3.9, Chloride Level 105, Carbon Dioxide Level 29, Calcium Level 9.1 01/05/19 11:46: Bedside Glucose (Misc Panel) 76 CBC/BMP Laboratory Tests 01/04/19 12:57 Red Blood Count 4.92, Mean Corpuscular Volume 86.6, Mean Corpuscular Hemoglobin 28.7, Mean Corpuscular Hemoglobin Concent 33.1, Red Cell Distribution Width 12.9, Neutrophils (%) (Auto) 60.8, Lymphocytes (%) (Auto) 17.3 L, Monocytes (%) (Auto) 11.4 H, Eosinophils (%) (Auto) 9.1 H, Basophils (%) (Auto) 1.1 H, Neutrophils # (Auto) 6.3, Lymphocytes # (Auto) 1.8, Monocytes # (Auto) 1.2 H, Eosinophils # (Auto) 0.9 H, Basophils # (Auto) 0.1 01/05/19 05:19 Red Blood Count 4.46, Mean Corpuscular Volume 86.8, Mean Corpuscular Hemoglobin 28.5, Mean Corpuscular Hemoglobin Concent 32.8, Red Cell Distribution Width 12.9, Neutrophils (%) (Auto) 50.2, Lymphocytes (%) (Auto) 23.6 L, Monocytes (%) (Auto) 12.7 H, Eosinophils (%) (Auto) 12.0 H, Basophils (%) (Auto) 1.3 H, Neutrophils # (Auto) 3.1, Lymphocytes # (Auto) 1.5, Monocytes # (Auto) 0.8, Eosinophils # (Auto) 0.7 H, Basophils # (Auto) 0.1, Calcium Level 9.1 OPAL ADAMS PA-C Jan 05, 2019 12:09 pm Javier Cruz MD Jan 05, 2019 6:20 pm
[2019-01-05] MEDS ORDERED: GLUCOSE 4 GM CHEW TABLET PO PRN (12:15)
[2019-01-05] MEDS ORDERED: DEXTROSE 50% 50 ML SYRINGE IV PRN (12:15)
[2019-01-05] MEDS ORDERED: GLUCAGON FOR INJ 1 MG VIAL (J1610) SC PRN (12:15)
[2019-01-05] MEDS: NS 1,000 ML IV SCH ×2 (12:32→21:43)
[2019-01-05 14:00] VITALS: BP 141/75
[2019-01-05] MEDS: QUEtiapine FUMARATE 100 MG TAB PO SCH (16:56)
--- NOTE | 2019-01-05 19:29 | ECGEPIP ---
Stationary ECG Study [facility] - ED Test Date: 2019-01-04 Pat Name: RHONDA MONREAL Department: Room: [place] [address] Gender: M Molder Labels: CHLOE : 1960 Requested By: MIESHA ROSALES Order Number: [id number] Reading MD: Mikaela Casillas Measurements Intervals [place] Rate: 69 P: 54 NV: 207 QRS: 10 QRSD: 101 T: 34 QT: 402 QTc: 432 Interpretive Statements SINUS RHYTHM NSTTW ABNORMALITY DECREASED RATE 08/19/16 Electronically Signed On 01-05-2019 19:29:07 EDT by Mikaela Casillas
[2019-01-05] MEDS: ATORVASTATIN 10 MG TAB PO SCH (21:58)
[2019-01-05] MEDS: LEVEMIR (INSULIN DETEMIR) 1 UNITS/0.01ML SC SCH (21:59)
[2019-01-05 22:00] VITALS: BP 132/62
[2019-01-06] MEDS: NS 1,000 ML IV SCH ×4 (04:40→23:56)
[2019-01-06] MEDS: LEVOTHYROXINE 112MCG TABLET (0.112MG) PO SCH (05:42)
[2019-01-06 06:00] VITALS: BP 157/74
[2019-01-06 07:10] LABS: BASO # 0.1 10^3/uL (0.0-0.2); BASO % 1.4 % (0.0-1.0); EOS # 0.6 10^3/uL (0.0-0.50); EOS % 11.9 % (0.0-3.0); HEMATOCRIT 40.2 % (42.0-52.0); HEMOGLOBIN 13.1 g/dl (13.5-17.5); LYMPH # 1.1 10^3/uL (1.5-4.5); LYMPH % 21.9 % (24.0-44.0); MEAN CORPUSCULAR HEMOGLOBIN 27.9 pg (27.0-33.0); MEAN CORPUSCULAR HGB CONC 32.6 g/dl (32.0-36.5); MEAN CORPUSCULAR VOLUME 85.7 fl (80.0-96.0); MONO # 0.7 10^3/uL (0.0-0.8); MONO % 14.4 % (0.0-5.0); NEUTROPHILS # 2.5 10^3/uL (1.8-7.7); NEUTROPHILS % 50.2 % (36.0-66.0); PLATELET COUNT, AUTOMATED 143 10^3/uL (150-450); RED BLOOD COUNT 4.69 10^6/uL (4.30-6.10); WHITE BLOOD COUNT 5.1 10^3/uL (4.0-10.0)
[2019-01-06 07:31] LABS: BLOOD UREA NITROGEN 15 MG/DL (7-18); CALCIUM LEVEL 8.7 MG/DL (8.5-10.1); CARBON DIOXIDE LEVEL 31 MEQ/L (21-32); CHLORIDE LEVEL 107 MEQ/L (98-107); CPK CREATINE PHOSPHOKINASE 317 U/L (39-308); CREATININE FOR GFR 1.23 MG/DL (0.70-1.30); GLOMERULAR FILTRATION RATE > 60.0 (>56); GLUCOSE, FASTING 111 MG/DL (70-100); POTASSIUM SERUM 4.1 MEQ/L (3.5-5.1); SODIUM LEVEL 141 MEQ/L (136-145)
[2019-01-06] MEDS: HumaLOG INSULIN (NovoLOG) PER UNIT SC SCH ×4 (09:28→21:00)
[2019-01-06] MEDS: METOPROLOL TART 50 MG TAB PO SCH ×2 (09:29→16:54)
[2019-01-06] MEDS: DULoxetine 30 MG CAP (CYMBALTA) PO SCH (09:29)
[2019-01-06] MEDS: busPIRone 10 MG TAB PO SCH ×2 (09:29→16:10)
[2019-01-06] MEDS: AMANTADINE 100 MG CAP PO SCH ×2 (09:30→11:48)
[2019-01-06] MEDS: APIXABAN 5 MG TAB (ELIQUIS) PO SCH ×2 (09:30→21:29)
[2019-01-06] MEDS: amLODIPine 10 MG TAB PO SCH (09:30)
[2019-01-06] MEDS: DOCUSATE SODIUM 100 MG CAP PO SCH ×2 (09:30→21:28)
[2019-01-06] MEDS: OMEPRAZOLE 20 MG CAP PO SCH (09:30)
[2019-01-06] MEDS: GABAPENTIN 100 MG CAP PO SCH ×3 (09:30→21:29)
[2019-01-06 14:00] VITALS: BP 159/75
[2019-01-06] MEDS: QUEtiapine FUMARATE 100 MG TAB PO SCH (16:55)
--- NOTE | 2019-01-06 17:22 | IPNPDOC ---
Subjective Date Seen The patient was seen on 01/06/19. Subjective Chief Complaint/HPI Dragan reports she's done relatively well today. Nursing says he has been up to the bathroom in moving on his room without much concern for his stability. He does note that he is urinating a lot, but we have not 150 mL per hour for his kidneys. General: Reports: Normal Appetite Pulmonary: Denies: Cough Cardiovascular: Denies: Chest Pain, Palpitations Gastrointestinal: Denies: Nausea, Vomiting Genitourinary: Denies: Dysuria Psych: Reports: Mood Normal; Denies: Anxiety, Depression, Anger Objective Physical Examination General Exam: Positive: Alert, Cooperative (lying his bedroom into the room), No Acute Distress Eye Exam: Positive: Conjunctiva & lids normal, EOMI; Negative: Sclera icteric ENT Exam: Positive: Mucous membr. moist/pink, Tongue Midline Neck Exam: Positive: Supple; Negative: JVD, thyromegaly Chest Exam: Positive: Clear to auscultation, Normal air movement Heart Exam: Positive: Rate Normal, Regular Rhythm, Normal S1, Normal S2; Negative: Murmurs, Rubs Abdomen Exam: Positive: Normal bowel sounds, Soft; Negative: Tenderness Extremity Exam: Negative: Edema, Tenderness, Swelling Skin Exam: Positive: Rash (seborrhic dematitis of the face and scalp) Neuro Exam: Positive: Normal Speech, Normal Tone Psych Exam: Positive: Mental status NL, Memory Intact A-FIB/CHADSVASC A-FIB History Current/History of A-Fib/PAF?: Yes Current Oral Anticoagulant The: Yes Assessment /Plan Problems (1) LOS (acute kidney injury) Status: Resolved Problem Text: 01/06: His kidney function has normalized with increase fluids. 01/05: Likely related to poor po intake in combination with diuretic and GENOVEVA inhibitors. Renal function improving with IVF. Lisinopril and Spironolactone held. Renal US: Slightly increase in size simple left renal cyst. There are no other significant changes compared to the prior exam. (2) Rhabdomyolysis Status: Acute Response to Treatment: Improving Problem Specific Plan: Repeat Labs Problem Text: His CPK came down into the 300 range today. I expected to normalize tomorrow. I will continue to 150 mL an hour normal saline to continue to flush his kidneys. (3) Schizo-affective schizophrenia Status: Chronic Problem Specific Plan: Consult Specialist Problem Text: Dr. Madrid will see him after me today and offer suggestions with modifications of his's psychiatric regimen. The patient does report to me that he has an point with his psychologist engineering on Tuesday. We may try to discharge him time for that appointment. (4) Orthostatic lightheadedness Status: Chronic Problem Text: Patient describes orthostatic symptoms when stands quickly causing him to feel unsteady and probably contributing to his falls. This may be multifactorial - Perhaps some element of autonomic dysfunction from his diabetes combined with meds that can exacerbate this including Genoveva inhibitors, Hydroxyzi ne and the Invega. His symptoms seem to have worsened when his Invega dose was increased in September (5) Frequent falls Response to Treatment: Stable Problem Text: He seems to be stable while here, but we will need to try to improve his regimen so that he is not following from medication side effects. If it is not his medications as causing the fall, then ultimately we will need to determine what is. (6) Diabetes Status: Chronic Response to Treatment: Stable Problem Text: Continue current regimen for now. (7) Tremor Status: Acute Response to Treatment: Improving Problem Text: May be related to EPS from the Invega (8) Atrial fibrillation Status: Chronic Response to Treatment: Stable Problem Text: Rate controlled on Metoprolol. Cont Eliquis. Plan/VTE VTE Prophylaxis Ordered?: Yes (Eliquis) Plan Therapy: PT, OT VS, I&O, 24H, Fishbone Vital Signs/I&O Vital Signs Date Time Temp Pulse Resp B/P (MAP) Pulse Ox O2 Delivery O2 Flow Rate FiO2 01/06/19 16:54 75 157/84 01/06/19 14:00 98.0 18 95 01/04/19 20:48 Room Air I&O- Last 24 Hours up to 6 AM 01/06/19 05:59 Intake Total 2610 ml Output Total 0 ml Balance 2610 ml Laboratory Data 24H LABS Laboratory Tests 2 01/05/19 20:20: Bedside Glucose (Misc Panel) 154H 01/06/19 06:48: Immature Granulocyte % (Auto) 0.2, White Blood Count 5.1, Red Blood Count 4.69, Hemoglobin 13.1L, Hematocrit 40.2L, Mean Corpuscular Volume 85.7, Mean Beni uscular Hemoglobin 27.9, Mean Corpuscular Hemoglobin Concent 32.6, Red Cell Distribution Width 12.7, Platelet Count 143L, Neutrophils (%) (Auto) 50.2, Lymphocytes (%) (Auto) 21.9L, Monocytes (%) (Auto) 14.4H, Eosinophils (%) (Auto) 11.9H, Basophils (%) (Auto) 1.4H, Neutrophils # (Auto) 2.5, Lymphocytes # (Auto) 1.1L, Monocytes # (Auto) 0.7, Eosinophils # (Auto) 0.6H, Basophils # (Auto) 0.1, Nucleated Red Blood Cells % (auto) 0.0, Anion Gap 3L, Glomerular Filtration Rate > 60.0, Blood Urea Nitrogen 15, Creatinine 1.23, Sodium Level 141, Potassium Level 4.1, Chloride Level 107, Carbon Dioxide Level 31, Calcium Level 8.7, Total Creatine Kinase 317H 01/06/19 11:39: Bedside Glucose (Misc Panel) 200H 01/06/19 16:42: Bedside Glucose (Misc Panel) 150H CBC/BMP Laboratory Tests 01/06/19 06:48 Red Blood Count 4.69, Mean Corpuscular Volume 85.7, Mean Corpuscular Hemoglobin 27.9, Mean Corpuscular Hemoglobin Concent 32.6, Red Cell Distribution Width 12.7, Neutrophils (%) (Auto) 50.2, Lymphocytes (%) (Auto) 21.9 L, Monocytes (%) (Auto) 14.4 H, Eosinophils (%) (Auto) 11.9 H, Basophils (%) (Auto) 1.4 H, Neutrophils # (Auto) 2.5, Lymphocytes # (Auto) 1.1 L, Monocytes # (Auto) 0.7, Eosinophils # (Auto) 0.6 H, Basophils # (Auto) 0.1, Calcium Level 8.7 Javier Cruz MD Jan 06, 2019 17:22
[2019-01-06 18:34] VITALS: BP_SYST 166; BP_SYST 172; BP_SYST 174; BP_DIAS 73; BP_DIAS 77; BP_DIAS 80
[2019-01-06] MEDS: ATORVASTATIN 10 MG TAB PO SCH (21:28)
[2019-01-06] MEDS: LEVEMIR (INSULIN DETEMIR) 1 UNITS/0.01ML SC SCH (21:28)
[2019-01-06 22:00] VITALS: BP 146/72
[2019-01-07 05:30] VITALS: BP_SYST 154; BP_SYST 160; BP_SYST 174; BP_DIAS 62; BP_DIAS 76; BP_DIAS 80
[2019-01-07 06:00] VITALS: BP 174/76
[2019-01-07] MEDS: LEVOTHYROXINE 112MCG TABLET (0.112MG) PO SCH (06:24)
[2019-01-07 07:01] LABS: BASO # 0.1 10^3/uL (0.0-0.2); BASO % 1.4 % (0.0-1.0); EOS # 0.6 10^3/uL (0.0-0.50); EOS % 10.8 % (0.0-3.0); HEMATOCRIT 40.4 % (42.0-52.0); HEMOGLOBIN 13.4 g/dl (13.5-17.5); LYMPH % 18.9 % (24.0-44.0); MEAN CORPUSCULAR HEMOGLOBIN 28.4 pg (27.0-33.0); MEAN CORPUSCULAR HGB CONC 33.2 g/dl (32.0-36.5); MEAN CORPUSCULAR VOLUME 85.6 fl (80.0-96.0); MONO # 0.6 10^3/uL (0.0-0.8); MONO % 12.2 % (0.0-5.0); NEUTROPHILS # 2.9 10^3/uL (1.8-7.7); NEUTROPHILS % 56.5 % (36.0-66.0); PLATELET COUNT, AUTOMATED 134 10^3/uL (150-450); RED BLOOD COUNT 4.72 10^6/uL (4.30-6.10); WHITE BLOOD COUNT 5.1 10^3/uL (4.0-10.0)
[2019-01-07 07:20] LABS: BLOOD UREA NITROGEN 10 MG/DL (7-18); CALCIUM LEVEL 8.7 MG/DL (8.5-10.1); CARBON DIOXIDE LEVEL 26 MEQ/L (21-32); CHLORIDE LEVEL 106 MEQ/L (98-107); CPK CREATINE PHOSPHOKINASE 206 U/L (39-308); CREATININE FOR GFR 1.14 MG/DL (0.70-1.30); GLOMERULAR FILTRATION RATE > 60.0 (>56); GLUCOSE, FASTING 157 MG/DL (70-100); POTASSIUM SERUM 3.8 MEQ/L (3.5-5.1); SODIUM LEVEL 139 MEQ/L (136-145)
[2019-01-07] MEDS: HumaLOG INSULIN (NovoLOG) PER UNIT SC SCH ×2 (07:46→12:48)
[2019-01-07] MEDS: NS 1,000 ML IV SCH (07:47)
[2019-01-07] MEDS: GABAPENTIN 100 MG CAP PO SCH (08:20)
[2019-01-07] MEDS: METOPROLOL TART 50 MG TAB PO SCH (08:20)
[2019-01-07] MEDS: DOCUSATE SODIUM 100 MG CAP PO SCH (08:20)
[2019-01-07] MEDS: AMANTADINE 100 MG CAP PO SCH ×2 (08:20→12:48)
[2019-01-07] MEDS: busPIRone 10 MG TAB PO SCH (08:20)
[2019-01-07] MEDS: APIXABAN 5 MG TAB (ELIQUIS) PO SCH (08:20)
[2019-01-07] MEDS: OMEPRAZOLE 20 MG CAP PO SCH (08:20)
[2019-01-07 08:21] VITALS: BP 150/70
[2019-01-07] MEDS: amLODIPine 10 MG TAB PO SCH (08:21)
[2019-01-07] MEDS: DULoxetine 30 MG CAP (CYMBALTA) PO SCH (08:21)
[2019-01-07 14:00] VITALS: BP 179/83
[2019-01-07] MEDS ORDERED: QUET5TAB PO (14:27)
--- NOTE | 2019-01-07 14:29 | DS.PDOC ---
Discharge Summary General Date of Admission Jan 04, 2019 at 15:54 Date of Discharge 01/07/19 Primary Care Physician: Daniel Arguelles MD Attending Physician: Javier Cruz MD Specialist/Consultants Involve: Tennille Huizar Discharge Summary PROCEDURES PERFORMED DURING STAY: [None]. ADMITTING DIAGNOSES: 1. . DISCHARGE DIAGNOSES: 1. . COMPLICATIONS/CHIEF COMPLAINT: Vincenzo,Rhabdomyolysis. HISTORY OF PRESENT ILLNESS: . HOSPITAL COURSE: . DISCHARGE MEDICATIONS: Please see below. ALLERGIES: Please see below. PHYSICAL EXAMINATION ON DISCHARGE: VITAL SIGNS: Please see below. GENERAL: HEENT: NECK: CARDIOVASCULAR EXAMINATION: RESPIRATORY EXAMINATION: ABDOMINAL EXAMINATION: EXTREMITIES: SKIN: NEUROLOGICAL EXAMINATION: PSYCHIATRIC EXAMINATION: LABORATORY DATA: Please see below. IMAGING: PROGNOSIS: ACTIVITY: [As tolerated]. DIET: DISCHARGE PLAN: DISPOSITION: . DISCHARGE INSTRUCTIONS: 1. . ITEMS TO FOLLOWUP ON ON OUTPATIENT: 1. . DISCHARGE CONDITION: [Stable]. TIME SPENT ON DISCHARGE: Greater than minutes. Vital Signs/I&Os Vital Signs Date Time Temp Pulse Resp B/P (MAP) Pulse Ox O2 Delivery O2 Flow Rate FiO2 01/07/19 08:21 76 150/70 01/07/19 06:00 98.1 16 95 01/04/19 20:48 Room Air I&O- Last 24 Hours up to 6 AM 01/07/19 06:00 Intake Total 3315 ml Output Total 0 ml Balance 3315 ml Laboratory Data Labs 24H Laboratory Tests 2 01/06/19 16:42: Bedside Glucose (Misc Panel) 150H 01/06/19 20:36: Bedside Glucose (Misc Panel) 137H 01/07/19 06:31: Immature Granulocyte % (Auto) 0.2, White Blood Count 5.1, Red Blood Count 4.72, Hemoglobin 13.4L, Hematocrit 40.4L, Mean Corpuscular Volume 85.6, Mean Corpuscular Hemoglobin 28.4, Mean Corpuscular Hemoglobin Concent 33.2, Red Cell Distribution Width 12.6, Platelet Count 134L, Neutrophils (%) (Auto) 56.5, Lymphocytes (%) (Auto) 18.9L, Monocytes (%) (Auto) 12.2H, Eosinophils (%) (Auto) 10.8H, Basophils (%) (Auto) 1.4H, Neutrophils # (Auto) 2.9, Lymphocytes # (Auto) 1.0L, Monocytes # (Auto) 0.6, Eosinophils # (Auto) 0.6H, Basophils # (Auto) 0.1, Nucleated Red Blood Cells % (auto) 0.0, Anion Gap 7L, Glomerular Filtration Rate > 60.0, Blood Urea Nitrogen 10, Creatinine 1.14, Sodium Level 139, Potassium Level 3.8, Chloride Level 106, Carbon Dioxide Level 26, Calcium Level 8.7, Total Creatine Kinase 206 CBC/BMP Laboratory Tests 01/07/19 06:31 Red Blood Count 4.72, Mean Corpuscular Volume 85.6, Mean Corpuscular Hemoglobin 28.4, Mean Corpuscular Hemoglobin Concent 33.2, Red Cell Distribution Width 12.6, Neutrophils (%) (Auto) 56.5, Lymphocytes (%) (Auto) 18.9 L, Monocytes (%) (Auto) 12.2 H, Eosinophils (%) (Auto) 10.8 H, Basophils (%) (Auto) 1.4 H, Neutrophils # (Auto) 2.9, Lymphocytes # (Auto) 1.0 L, Monocytes # (Auto) 0.6, Eosinophils # (Auto) 0.6 H, Basophils # (Auto) 0.1, Calcium Level 8.7 FSBS Laboratory Tests Test 01/06/19 16:42 01/06/19 20:36 Range/Units Bedside Glucose (Misc Panel) 150 137 70-105 MG/DL Discharge Medications Scheduled Adalimumab (Humira Pen) 40 Mg/0.8 Ml Kit, 40 MG SC Q2WK, (Reported) PT DUE TODAY FOR THIS MED. WAS UNABLE TO TAKE IT PRIOR TO ARRIVAL Amantadine HCl (Amantadine) 100 Mg Tablet, 200 MG PO QAM, (Reported) Amantadine HCl (Amantadine) 100 Mg Tablet, 100 MG PO DAILY, (Reported) TAKES @ NOON Apixaban (Eliquis) 5 Mg Tablet, 5 MG PO BID, (Reported) Atorvastatin Calcium (Atorvastatin Calcium) 10 Mg Tab, 10 MG PO QHS, (Reported) Buspirone HCl (Buspirone HCl) 15 Mg Tablet, 30 MG PO BID, (Reported) 0800,1700 Chlorthalidone (Chlorthalidone) 25 Mg Tablet, 12.5 MG PO DAILY, (Reported) Duloxetine HCl (Duloxetine HCl) 20 Mg Capsule.dr, 20 MG PO DAILY, (Reported) TAKE WITH 60MG CAP. 80MG TOTAL Duloxetine Hcl (Duloxetine HCl) 60 Mg Capsule.dr, 60 MG PO DAILY, (Reported) TAKE WITH 20MG CAP. 80MG TOTAL Ergocalciferol (Vitamin D2) (Drisdol) 50,000 Unit Capsule, 50,000 UNIT PO QWEEK, (Reported) MONDAYS Gabapentin (Gabapentin) 600 Mg Tablet, 600 MG PO TID, (Reported) 0800,1200,1700 Hydroxyzine Pamoate (Hydroxyzine Pamoate) 50 Mg Capsule, 100 MG PO QHS, (Reported) Insulin Glargine,Hum.rec.anlog (Basaglar Kwikpen U-100) 100 Unit/Ml Inj, 50 UNITS SC QHS, (Reported) Insulin Lispro (Admelog) 100 Unit/1 Ml Vial, SC AC, (Reported) PER SLIDING SCALE Levothyroxine Sodium (Synthroid) 112 Mcg Tab, 112 MCG PO DAILY, (Reported) Lisinopril (Lisinopril) 10 Mg Tablet, 10 MG PO DAILY, (Reported) Loratadine (Loratadine) 10 Mg Tab, 10 MG PO QPM, (Reported) TAKES @ 1700 Metformin HCl (Metformin HCl) 1,000 Mg Tab, 1,000 MG PO BID, (Reported) 0800,1700 Metoprolol Tartrate (Metoprolol Tartrate) 50 Mg Tab, 50 MG PO BID, (Reported) 0800,1700 Omeprazole (Omeprazole) 40 Mg Cap, 40 MG PO DAILY, (Reported) Quetiapine Fumarate (Quetiapine Fumarate) 50 Mg Tablet, 50 MG PO QPM Spironolactone (Spironolactone) 25 Mg Tab, 12.5 MG PO DAILY, (Reported) Testosterone (Testosterone) 30 Mg/1.5 Ml Kim..consumer insights intern, 30 MG TD QHS, (Reported) APPLY TO THE UNDERARMS Allergies Coded Allergies: Penicillins (Verified Allergy, Unknown, 01/04/19) mesalamine (Verified Allergy, Unknown, lialda, 01/04/19) fluoxetine (Verified Adverse Reaction, Mild, hallucinations, 01/04/19) Javier Cruz MD Jan 07, 2019 14:29
== END 2019-01-07 16:00 | disposition left against medical advice (07) | DRG 469 ==
LOC: M ED 11:56 → M ED INP 15:54 → M MSPAV 21:00
PROVIDERS: ADMIT Internal Medicine Nephrology; ATTEND Family Medicine
DX: N17.9 Acute kidney failure, unspecified (principal); E11.40 Type 2 diabetes mellitus with diabetic neuropathy, unspecified; M62.82 Rhabdomyolysis; I48.0 Paroxysmal atrial fibrillation; K50.90 Crohn's disease, unspecified, without complications; F25.9 Schizoaffective disorder, unspecified; E03.9 Hypothyroidism, unspecified; K21.9 Gastro-esophageal reflux disease without esophagitis; E66.9 Obesity, unspecified; L21.9 Seborrheic dermatitis, unspecified; I95.1 Orthostatic hypotension; G47.33 Obstructive sleep apnea (adult) (pediatric); J45.40 Moderate persistent asthma, uncomplicated; R29.6 Repeated falls; R26.81 Unsteadiness on feet; R25.1 Tremor, unspecified; Z79.4 Long term (current) use of insulin; Z79.899 Other long term (current) drug therapy; Z88.0 Allergy status to penicillin; Z88.8 Allergy status to other drugs, medicaments and biological substances

== ENCOUNTER 2019-01-09 18:34 | Inpatient (IN) | payer OTHER ==
[~2019-01-09] VITALS: Ht 175.3 cm; Wt 113.2 kg
[~2019-01-09 18:34] MED LIST changes: +ADME100I SC; +BUSP15TA47 PO; +CHLO25TA PO; +DRIS50003 PO; +DULO1CAP3 PO; +DULO20CA27 PO; +GABA600T4 PO; +HYDR50CA2 PO; +INVE1.75 IM; +LISI10TA4 PO; +QUET5TAB PO; +TEST30SO TD
[2019-01-09 19:47] LABS: HEMATOCRIT 41.7 % (42.0-52.0); HEMOGLOBIN 13.9 g/dl (13.5-17.5); MEAN CORPUSCULAR HEMOGLOBIN 28.4 pg (27.0-33.0); MEAN CORPUSCULAR HGB CONC 33.3 g/dl (32.0-36.5); MEAN CORPUSCULAR VOLUME 85.3 fl (80.0-96.0); PLATELET COUNT, AUTOMATED 166 10^3/uL (150-450); RED BLOOD COUNT 4.89 10^6/uL (4.30-6.10); WHITE BLOOD COUNT 7.6 10^3/uL (4.0-10.0)
[2019-01-09 20:10] LABS: AMPHETAMINES LEVEL URINE NEGATIVE (NEGATIVE); BARBITURATES URINE NEGATIVE (NEGATIVE); BENZODIAZEPINES URINE NEGATIVE (NEGATIVE); CANNABINOIDS URINE NEGATIVE (NEGATIVE); COCAINE METABOLITE URINE NEGATIVE (NEGATIVE); METHADONE URINE NEGATIVE (NEGATIVE); OPIATES URINE NEGATIVE (NEGATIVE); PHENCYCLIDINE URINE NEGATIVE (NEGATIVE)
[2019-01-09 20:25] LABS: ACETAMINOPHEN LEVEL < 2.0 UG/ML (10.0-30.0); ALT/SGPT 25 U/L (12-78); BILIRUBIN,DIRECT 0.2 MG/DL (0.0-0.2); BILIRUBIN,TOTAL 0.5 MG/DL (0.2-1.0); BLOOD UREA NITROGEN 20 MG/DL (7-18); CALCIUM LEVEL 8.6 MG/DL (8.5-10.1); CARBON DIOXIDE LEVEL 25 MEQ/L (21-32); CHLORIDE LEVEL 103 MEQ/L (98-107); CREATININE FOR GFR 1.56 MG/DL (0.70-1.30); ETHYL ALCOHOL (ETHANOL) < 0.003 % (0.000-0.010); GLOMERULAR FILTRATION RATE 48.9 (>56); GLUCOSE, FASTING 121 MG/DL (70-100); POTASSIUM SERUM 4.4 MEQ/L (3.5-5.1); SALICYLATE LEVEL < 1.7 MG/DL (5.0-30.0); SODIUM LEVEL 136 MEQ/L (136-145); TOTAL PROTEIN 6.9 GM/DL (6.4-8.2)
[2019-01-09] MEDS ORDERED: MAALOX 30 ML SUSP *UDC PO PRN (23:15)
[2019-01-09] MEDS ORDERED: MOM 30ML SUSPENSION UDC PO PRN (23:15)
[2019-01-09] MEDS ORDERED: NICOTINE 21MG/24HR 1 EA TRANSDERMAL TD PRN (23:15)
[2019-01-09] MEDS ORDERED: traZODone 50 MG TAB PO PRN (23:15)
[2019-01-09] MEDS ORDERED: INVE1.75 IM (23:57)
[2019-01-09] MEDS ORDERED: QUET5TAB PO (23:57)
[2019-01-09] MEDS ORDERED: FLON1SPR (23:57)
[2019-01-09] MEDS ORDERED: BACITAB PO (23:57)
[2019-01-10 02:32] VITALS: BP 150/70
[2019-01-10] MEDS ORDERED: DEXTROSE 50% 50 ML SYRINGE IV PRN (04:00)
[2019-01-10] MEDS ORDERED: GLUCAGON FOR INJ 1 MG VIAL (J1610) SC PRN (04:00)
[2019-01-10] MEDS ORDERED: GLUCOSE 4 GM CHEW TABLET PO PRN (04:00)
[2019-01-10] MEDS: LEVOTHYROXINE 112MCG TABLET (0.112MG) PO SCH (06:23)
[2019-01-10] MEDS: HumaLOG INSULIN (NovoLOG) PER UNIT SC SCH ×4 (06:46→21:00)
[2019-01-10] MEDS ORDERED: metFORMIN (GLUCOPHAGE) 1000 MG TABLET PO SCH (08:00)
[2019-01-10] MEDS: DULoxetine 30 MG CAP (CYMBALTA) PO SCH (08:12)
[2019-01-10] MEDS: GABAPENTIN 300 MG CAP PO SCH ×3 (08:12→20:15)
[2019-01-10] MEDS: SPIRONOLACTONE 12.5MG PER 1/2 TABLET PO SCH (08:12)
[2019-01-10] MEDS: FLUTICASONE PROP 0.05% NASAL SPRAY 16 GM (FLONASE) SCH (08:12)
[2019-01-10] MEDS: busPIRone 5 MG TAB PO SCH ×2 (08:12→17:25)
[2019-01-10] MEDS: AMANTADINE 100 MG CAP PO SCH ×2 (08:13→11:47)
[2019-01-10] MEDS: CHLORTHALIDONE 12.5MG PER 1/2 TABLET PO SCH (08:13)
[2019-01-10] MEDS: LISINOPRIL 10 MG TAB PO SCH (08:13)
[2019-01-10] MEDS: OMEPRAZOLE 20 MG CAP PO SCH (08:13)
[2019-01-10] MEDS: APIXABAN 5 MG TAB (ELIQUIS) PO SCH ×2 (08:13→21:30)
[2019-01-10] MEDS: LACTOBACILLUS ACIDOPHILUS CAP (BACID) PO SCH (08:13)
[2019-01-10] MEDS: METOPROLOL TART 50 MG TAB PO SCH ×2 (08:14→17:25)
[2019-01-10] MEDS ORDERED: FLUBLOK(EGG FREE)(QUAD)INFLUENZA VACC 0.5ML SYRINGE (90682)18YRS&OLDER IM ONE (09:00)
--- NOTE | 2019-01-10 13:38 | MHHPEPDOC ---
General Date Of Admission: Jan 09, 2019 Legal Status: 9.39 Chief Complaint "I'm seeing neon spirals and bugs and hearing whispers" History of Present Illness HISTORY OF THE PRESENT ILLNESS: Patient is a 58 -year-old , male, with a history of schizoaffective d/o followed at [facility] who presented to ED endorsing VH of "neon spirals and bus," AH of "whispers" he could not make out, and extremity tremors that first started with im invega sustenna 234mg qmonth and worsened once switch to im invega trinza 819mg [id number]. Pt also endorsed odd somatic delusions/associations of "brain cells dying" and "water in ears" when answering questions about his past medical history in the ED. Pt feared for his safe per ED due to AVH. Psychiatric Review of Systems Depression (2 or more weeks): difficulty concentrating Indira (4 or more days of): denies Psychosis: auditory hallucination, visual hallucination, other (somatization) PTSD: denies Anxiety: situational anxiety, stressor related anxiety Anxiety/ 6 months or more of: difficulty concentrating Past Psychiatric History Previous Psychiatric Diagnosis: Schizoaffective d/o Previous Psychiatric Admissions: . Suicide Attempts: . Psychiatric Follow-up: [facility] Psychiatric medications: Invega Trinza im [id number] last dose in November Past Medical History Medical Problems renal disease (rhabdomyalisis hospitalization) 01/04/19 Diabetes, Hypertension, HLD, obesity, MARY on CPAP, moderate persistent asthma, diabetic neuropathy, hypothyroidism, GERD, Afib, recurrent falls, [place] central canal stenosis, ulcerative colitis, allergic rhinitis, diastolic dysfunction, subarachnoid hemorrhage 09/30 Family Medical/Psychiatric HX Medical Problems noncontributory Psychiatric Disorders: No Addiction History denies Social History Childhood: born and raised [facility], 2 parent home, good childhood Abuse/Trauma: denies Current Living Situation: alone in an apt in [place] Education: high school grad Employment: on disability, social security Social Support: family Legal: denies Marital: single, never , no kids Mental Status Examination General Appearance: well groomed, appears stated age, hospital scubs/clothing Build: overweight Demeanor: average Eye Contact: average Activity: average, other (hand tremors when in action) Behavior: cooperative Speech: spontaneous, reg/rate,rhythm,volume Mood: depressed, anxious Mood "ok" Affect: constricted, flat, anxious Thought Process: concrete, associative (somatic) Thought Content (Delusions): somatic, other (AH whispers, VH "neon spirals and bugs." Denies SI/HI) Thought Content (Other): appropriate, coherent Thought Content (Aggressive): none reported Perception (Hallucinations): none reported Perception (Other): none reported Cognition (Impairment of): none reported Oriented: Awake, Alert, Oriented times three Insight: fair Judgment: Fair Psychosis: Associations (somatic), Psychotic Perceptions Diagnoses Schizoaffective D/O Cognitive d/o vs. Psychsis (not related to hx schizoaffective d/o) secondary GME iatrogenic effects of invega A-FIB/CHADSVASC A-FIB History Current/History of A-Fib/PAF?: Yes Current Oral Anticoagulant The: Yes Assessment Pt seen and states he started having AH, VH, tremors after began invega sustenna (never received oral invega prior to starting invega sustenna) and states he told his med provider at [facility] and switched from invega sustenna (after 3 doses) to invega trinza. States since receiving invega trinza his AH, VH, and tremors are worsening. He was hospitalized with rhabodomyalisis last week here due to med side effect (invega trinza), he is again experiencing decreased renal function although less severe. Discuss with pt that invega is renally metabolized and secreted and his renals appear to be negatively affected by it to the extent his decreased blood filtration is most likely increasing toxins within blood that are affecting pt to cause VH ("neon bugs and spirals") which are not particularly seen in schizophrenic disorders but more commonly seen in delirium or medical illness affecting the brain, AH of whispers he can't not july e out, extremity tremors. Discussed with pt that unfortunately we will have to wait for the invega trinza to be fully metabolized out of his body for symptoms to completely improve (about 1.5months) so can aid to manage symptoms thru oral hydration with water (8 6oz cups water daily), inderal tid for tremors, and abilify 5mg bid for AVH. Pt understands and is agreeable to the plan. Recommended to never take invega again. Denies SI/HI, hallucinations, delusions. Feels safe here. Initial Treatment Plan 1. Patient was admitted on a 9.39 status. 2. Complete history was obtained. 3. With patients permission, family will be contacted and database will be expanded. 4. Patients medication regimen will be reviewed and changed accordingly. 5. Patient will be provided with protected environment. 6. Patient will be treated with individual, group, and milieu therapies. 7. Patient will receive supportive psych-education. 8. Discharge planning will commence immediately. 9. Outpatient follow-up treatment will be strongly recommended. 10. The initial treatment plan will focus initially on: * Depression. * Risk for suicide. * Substance abuse. 11. D/c invega trinza. start abilify mg bid. ESTIMATED LENGTH OF STAY: 5-7 DAYS. TIME SPENT COUNSELING AND COORDINATING INITIAL CARE: 60 minutes. Vital Signs Vital Signs Date Time Temp Pulse Resp B/P (MAP) Pulse Ox O2 Delivery O2 Flow Rate FiO2 01/10/19 08:27 Room Air 01/10/19 08:14 89 01/10/19 08:13 103/59 01/10/19 02:32 96.7 16 01/09/19 22:57 99 Laboratory Data 24H Labs Laboratory Tests 2 01/09/19 19:24: Nucleated Red Blood Cells % (auto) 0.0, Anion Gap 8, Glomerular Filtration Rate 48.9L, Calcium Level 8.6, Aspartate Amino Transf (AST/SGOT) 16, Alanine Aminotransferase (ALT/SGPT) 25, Alkaline Phosphatase 70, Total Bilirubin 0.5, Direct Bilirubin 0.2, Total Protein 6.9, Albumin 4.0, Albumin/Globulin Ratio 1.38, Thyroid Stimulating Hormone (TSH) 2.890, Salicylates Level < 1.7L, Urine Amphetamines Screen NEGATIVE, Urine Benzodiazepines Screen NEGATIVE, Urine Opiates Screen NEGATIVE, Urine Methadone Screen NEGATIVE, Acetaminophen Level < 2.0L, Urine Barbiturates Screen NEGATIVE, Urine Phencyclidine Screen NEGATIVE, Urine Cocaine Metabolite Screen NEGATIVE, Urine Cannabinoids Screen NEGATIVE, Ethyl Alcohol Level < 0.003 01/10/19 06:25: Bedside Glucose (Misc Panel) 103 01/10/19 11:43: Bedside Glucose (Misc Panel) 185H CBC/BMP Laboratory Tests 01/09/19 19:24 Red Blood Count 4.89, Mean Corpuscular Volume 85.3, Mean Corpuscular Hemoglobin 28.4, Mean Corpuscular Hemoglobin Concent 33.3, Red Cell Distribution Width 12.7 Medications Scheduled Adalimumab (Humira Pen) 40 Mg/0.8 Ml Kit, 40 MG SC Q2WK, (Reported) Amantadine HCl (Amantadine) 100 Mg Tablet, 200 MG PO DAILY, (Reported) Amantadine HCl (Amantadine) 100 Mg Tablet, 100 MG PO DAILY, (Reported) TAKES @ NOON Apixaban (Eliquis) 5 Mg Tablet, 5 MG PO BID, (Reported) Atorvastatin Calcium (Atorvastatin Calcium) 10 Mg Tab, 10 MG PO QHS, (Reported) Buspirone HCl (Buspirone HCl) 15 Mg Tablet, 30 MG PO BID, (Reported) 0800,1700 Chlorthalidone (Chlorthalidone) 25 Mg Tablet, 12.5 MG PO DAILY, (Reported) Duloxetine HCl (Duloxetine HCl) 20 Mg Capsule.dr, 20 MG PO DAILY, (Reported) TAKE WITH 60MG CAP. 80MG TOTAL Duloxetine Hcl (Duloxetine HCl) 60 Mg Capsule.dr, 60 MG PO DAILY, (Reported) TAKE WITH 20MG CAP. 80MG TOTAL Fluticasone Propionate (Flonase Allergy Relief) 9.9 Ml [place].susp, 1 SPRAY NA DAILY, (Reported) Gabapentin (Gabapentin) 600 Mg Tablet, 600 MG PO TID, (Reported) 0800,1200,1700 Hydroxyzine Pamoate (Hydroxyzine Pamoate) 50 Mg Capsule, 100 MG PO QHS, (Reported) Insulin Glargine,Hum.rec.anlog (Basaglar Kwikpen U-100) 100 Unit/Ml Inj, 50 UNITS SC QHS, (Reported) Insulin Lispro (Admelog) 100 Unit/1 Ml Vial, 1 DOSE SC ACHS, (Reported) PER SLIDING SCALE L.acidoph/L.bulg/B.bif/S.therm (Bacid Caplet) 1 Each Tablet, 2 TAB PO DAILY, (Reported) Levothyroxine Sodium (Synthroid) 112 Mcg Tab, 112 MCG PO DAILY, (Reported) Lisinopril (Lisinopril) 10 Mg Tablet, 10 MG PO DAILY, (Reported) Loratadine (Loratadine) 10 Mg Tab, 10 MG PO QPM, (Reported) TAKES @ 1700 Metformin HCl (Metformin HCl) 1,000 Mg Tab, 1,000 MG PO BID, (Reported) 0800,1700 Metoprolol Tartrate (Metoprolol Tartrate) 50 Mg Tab, 50 MG PO BID, (Reported) 0800,1700 Omeprazole (Omeprazole) 40 Mg Cap, 40 MG PO DAILY, (Reported) Paliperidone Palmitate (Invega Trinza) 819 Mg/2.625 Ml Syringe, 819 MG IM Q3M, (Reported) PATIENT STATES LAST DOSE WAS IN DECEMBER Quetiapine Fumarate (Quetiapine Fumarate) 50 Mg Tablet, 50 MG PO QHS, (Reported) Spironolactone (Spironolactone) 25 Mg Tab, 12.5 MG PO DAILY, (Reported) Allergies Coded Allergies: Penicillins (Verified Allergy, Unknown, 01/04/19) mesalamine (Verified Allergy, Unknown, lialda, 01/04/19) fluoxetine (Verified Adverse Reaction, Mild, hallucinations, 01/04/19) RADHA BERRY DO January 10, 2019 13:38
[2019-01-10] MEDS ORDERED: PROPRANOLOL 10 MG TAB PO ONE (13:45)
--- NOTE | 2019-01-10 15:16 | HPEPDOC ---
General Date of Admission Jan 09, 2019 at 23:12 Chief Complaint The patient is a 58-year-old male admitted with a reason for visit of Schizoaff ective Disorder. Source: Patient Exam Limitations: No limitations Timing/Duration: Week(s) Severity: Moderate Associated Symptoms: Denies Symptoms History of Present Illness Patient is a 58-year-old male, past medical history significant for schizoaffective disorder, hypothyroidism, obesity, paroxysmal atrial fibrillation, obstructive sleep apnea, asthma, diastolic heart failure, hypertension, hyperlipidemia, presenting to the emergency room on account of audio and visual hallucinations. Patient reported seeing neon light lines and seeing people who appeared to be face less and hiding behind a curtain. He also reported hearing whispering voices objects. Symptoms had been ongoing for 2 weeks. He was admitted to the inpatient psychiatric unit for further evaluation and management of symptoms. On evaluation, he reports persisting auditory and visual hallucinations, worse at night. He also expressed concerns about his renal function. Home Medications Scheduled Adalimumab (Humira Pen) 40 Mg/0.8 Ml Kit, 40 MG SC Q2WK, (Reported) Amantadine HCl (Amantadine) 100 Mg Tablet, 200 MG PO DAILY, (Reported) Amantadine HCl (Amantadine) 100 Mg Tablet, 100 MG PO DAILY, (Reported) TAKES @ NOON Apixaban (Eliquis) 5 Mg Tablet, 5 MG PO BID, (Reported) Atorvastatin Calcium (Atorvastatin Calcium) 10 Mg Tab, 10 MG PO QHS, (Reported) Buspirone HCl (Buspirone HCl) 15 Mg Tablet, 30 MG PO BID, (Reported) 0800,1700 Chlorthalidone (Chlorthalidone) 25 Mg Tablet, 12.5 MG PO DAILY, (Reported) Duloxetine HCl (Duloxetine HCl) 20 Mg Capsule.dr, 20 MG PO DAILY, (Reported) TAKE WITH 60MG CAP. 80MG TOTAL Duloxetine Hcl (Duloxetine HCl) 60 Mg Capsule.dr, 60 MG PO DAILY, (Reported) TAKE WITH 20MG CAP. 80MG TOTAL Fluticasone Propionate (Flonase Allergy Relief) 9.9 Ml [place].susp, 1 SPRAY NA DAILY, (Reported) Gabapentin (Gabapentin) 600 Mg Tablet, 600 MG PO TID, (Reported) 0800,1200,1700 Hydroxyzine Pamoate (Hydroxyzine Pamoate) 50 Mg Capsule, 100 MG PO QHS, (Reported) Insulin Glargine,Hum.rec.anlog (Basaglar Kwikpen U-100) 100 Unit/Ml Inj, 50 UNITS SC QHS, (Reported) Insulin Lispro (Admelog) 100 Unit/1 Ml Vial, 1 DOSE SC ACHS, (Reported) PER SLIDING SCALE L.acidoph/L.bulg/B.bif/S.therm (Bacid Caplet) 1 Each Tablet, 2 TAB PO DAILY, (Reported) Levothyroxine Sodium (Synthroid) 112 Mcg Tab, 112 MCG PO DAILY, (Reported) Lisinopril (Lisinopril) 10 Mg Tablet, 10 MG PO DAILY, (Reported) Loratadine (Loratadine) 10 Mg Tab, 10 MG PO QPM, (Reported) TAKES @ 1700 Metformin HCl (Metformin HCl) 1,000 Mg Tab, 1,000 MG PO BID, (Reported) 0800,1700 Metoprolol Tartrate (Metoprolol Tartrate) 50 Mg Tab, 50 MG PO BID, (Reported) 0800,1700 Omeprazole (Omeprazole) 40 Mg Cap, 40 MG PO DAILY, (Reported) Paliperidone Palmitate (Invega Trinza) 819 Mg/2.625 Ml Syringe, 819 MG IM Q3M, (Reported) PATIENT STATES LAST DOSE WAS IN DECEMBER Quetiapine Fumarate (Quetiapine Fumarate) 50 Mg Tablet, 50 MG PO QHS, (Reported) Spironolactone (Spironolactone) 25 Mg Tab, 12.5 MG PO DAILY, (Reported) Allergies Coded Allergies: Penicillins (Verified Allergy, Unknown, 01/04/19) mesalamine (Verified Allergy, Unknown, lialda, 01/04/19) fluoxetine (Verified Adverse Reaction, Mild, hallucinations, 01/04/19) Past Medical History Medical History -Crohn's colitis -Hypertension -. Type 2 diabetes mellitus -Paroxysmal atrial fibrillation -. Obesity -Obstructive sleep apnea -. Rhabdomyolysis -Chronic kidney disease stage III- -subarachnoid hemorrhage -Degenerative disc disease -Diastolic heart failure -GERD -Schizoaffective disorder Surgical History -Cholecystectomy -Tonsillectomy, adenectomy -. Colonoscopy Family History Significant Family History: No pertinent family hx Social History * Smoker: Denies Alcohol: Denies Drugs: denies A-FIB/CHADSVASC A-FIB History Current/History of A-Fib/PAF?: Yes Current Oral Anticoagulant The: Yes Age/Risk Factor Scoring CHADSVASC: CHADSVASC Response (Comments) Value Age Risk Factor Age < 65 years old 0 Gender Risk Factor Male 0 Hx of CHF Yes 1 Hx of HTN Yes 1 Hx of Diabetes Yes 1 Total 3 Treatment Treatment ordered: Apixaban Review of Systems Other systems A 12 point pertinent review of systems was completed, negative except as stated in history of present illness Physical Examination Other physical findings General: NAD. Skin: Warm, dry, intact. Cardiovascular: Regular rate and rhythm, no MRG, no jugular venous distention, BLE 1+ edema. Respiratory:CTAB, no accessory muscle use noted. Abdomen: Bowel sounds +, no tenderness, no distention Musculoskeletal: No joint deformities, Neurologic: CN 2-12 grossly intact, alert and oriented 3 Psychiatric: Appropriate mood and affect, no anxiety or agitation Vital Signs Vital Signs Date Time Temp Pulse Resp B/P (MAP) Pulse Ox O2 Delivery O2 Flow Rate FiO2 01/10/19 08:27 Room Air 01/10/19 08:14 89 01/10/19 08:13 103/59 01/10/19 02:32 96.7 16 01/09/19 22:57 99 Laboratory Data Labs 24H Laboratory Tests 2 01/09/19 19:24: Nucleated Red Blood Cells % (auto) 0.0, Anion Gap 8, Glomerular Filtration Rate 48.9L, Calcium Level 8.6, Aspartate Amino Transf (AST/SGOT) 16, Alanine Patino otransferase (ALT/SGPT) 25, Alkaline Phosphatase 70, Total Bilirubin 0.5, Direct Bilirubin 0.2, Total Protein 6.9, Albumin 4.0, Albumin/Globulin Ratio 1.38, Thyroid Stimulating Hormone (TSH) 2.890, Salicylates Level < 1.7L, Urine Amphetamines Screen NEGATIVE, Urine Benzodiazepines Screen NEGATIVE, Urine Opiates Screen NEGATIVE, Urine Methadone Screen NEGATIVE, Acetaminophen Level < 2.0L, Urine Barbiturates Screen NEGATIVE, Urine Phencyclidine Screen NEGATIVE, Urine Cocaine Metabolite Screen NEGATIVE, Urine Cannabinoids Screen NEGATIVE, Ethyl Alcohol Level < 0.003 01/10/19 06:25: Bedside Glucose (Misc Panel) 103 01/10/19 11:43: Bedside Glucose (Misc Panel) 185H CBC/BMP Laboratory Tests 01/09/19 19:24 Red Blood Count 4.89, Mean Corpuscular Volume 85.3, Mean Corpuscular Hemoglobin 28.4, Mean Corpuscular Hemoglobin Concent 33.3, Red Cell Distribution Width 12.7 Assessment/Plan Type 2 diabetes mellitus -Diabetic diet -Finger stick checks prior to meals and at bedtime with coverage with insulin per sliding scale protocol -Continue patient's home medication -Avoid metformin given reduced renal function Hypertension -Continue current medications -. Vital signs monitoring every 4 hours -. Target systolic blood pressure less than 140 mmHg Paroxysmal atrial fibrillation -On anticoagulation therapy with apixaban -Currently in sinus rhythm at a controlled rate -Stable Chronic kidney disease stage III -Avoid all nephrotoxic medications -. Basic chemistry obtained on admission reviewed -, Creatinine 1.56 Schizoaffective disorder -Presenting with persisting auditory and visual hallucinations -Management by primary team Hypothyroidism -Continue Synthroid Obstructive sleep apnea -CPAP QHS DVT prophylaxis -Patient is fully anticoagulated Plan / VTE VTE Prophylaxis Ordered?: Yes JUNIE MARTINEZ January 10, 2019 15:16
[2019-01-10] MEDS: LORATADINE 10 MG TAB PO SCH (17:25)
[2019-01-10 18:00] VITALS: BP 118/66
[2019-01-10] MEDS: hydrOXYzine 50 MG TAB PO SCH (20:15)
[2019-01-10] MEDS: ATORVASTATIN 10 MG TAB PO SCH (20:15)
[2019-01-10] MEDS: PROPRANOLOL 10 MG TAB PO SCH (20:16)
[2019-01-10] MEDS: QUEtiapine FUMARATE 50 MG TAB PO SCH (20:16)
[2019-01-11] MEDS: LEVOTHYROXINE 112MCG TABLET (0.112MG) PO SCH (06:02)
[2019-01-11 06:44] LABS: HEMATOCRIT 44.9 % (42.0-52.0); HEMOGLOBIN 14.8 g/dl (13.5-17.5); MEAN CORPUSCULAR HEMOGLOBIN 28.4 pg (27.0-33.0); MEAN CORPUSCULAR VOLUME 86.2 fl (80.0-96.0); PLATELET COUNT, AUTOMATED 173 10^3/uL (150-450); RED BLOOD COUNT 5.21 10^6/uL (4.30-6.10); WHITE BLOOD COUNT 5.7 10^3/uL (4.0-10.0)
[2019-01-11] MEDS: HumaLOG INSULIN (NovoLOG) PER UNIT SC SCH ×4 (06:59→21:00)
[2019-01-11 07:14] LABS: BILIRUBIN,TOTAL 0.7 MG/DL (0.2-1.0); CALCIUM LEVEL 9.2 MG/DL (8.5-10.1); CREATININE FOR GFR 1.46 MG/DL (0.70-1.30); GLOMERULAR FILTRATION RATE 52.8 (>56); POTASSIUM SERUM 4.4 MEQ/L (3.5-5.1); TOTAL PROTEIN 7.3 GM/DL (6.4-8.2)
[2019-01-11 07:19] VITALS: BP 136/81
[2019-01-11] MEDS: SPIRONOLACTONE 12.5MG PER 1/2 TABLET PO SCH (08:52)
[2019-01-11] MEDS: AMANTADINE 100 MG CAP PO SCH ×2 (08:52→11:48)
[2019-01-11] MEDS: GABAPENTIN 300 MG CAP PO SCH ×3 (08:52→21:11)
[2019-01-11] MEDS: DULoxetine 30 MG CAP (CYMBALTA) PO SCH (08:52)
[2019-01-11] MEDS: FLUTICASONE PROP 0.05% NASAL SPRAY 16 GM (FLONASE) SCH (08:52)
[2019-01-11] MEDS: APIXABAN 5 MG TAB (ELIQUIS) PO SCH ×2 (08:52→21:11)
[2019-01-11] MEDS: CHLORTHALIDONE 12.5MG PER 1/2 TABLET PO SCH (08:53)
[2019-01-11] MEDS: LACTOBACILLUS ACIDOPHILUS CAP (BACID) PO SCH (08:53)
[2019-01-11] MEDS: OMEPRAZOLE 20 MG CAP PO SCH (08:53)
[2019-01-11] MEDS: busPIRone 5 MG TAB PO SCH ×2 (08:53→16:10)
[2019-01-11] MEDS: PROPRANOLOL 10 MG TAB PO SCH ×3 (08:53→21:11)
[2019-01-11] MEDS: LISINOPRIL 10 MG TAB PO SCH (08:54)
[2019-01-11] MEDS: METOPROLOL TART 50 MG TAB PO SCH ×2 (08:54→16:13)
--- NOTE | 2019-01-11 11:16 | IPNPDOC ---
Subjective Date Seen The patient was seen on 01/11/19. Subjective Chief Complaint/HPI 58 -year-old , male, with a history of schizoaffective presented to ED endorsing VH of "neon spirals and bus," AH of "whispers" he could not make out, and extremity tremors that first started with im invega sustenna 234mg qmonth and worsened once switch to im invega trinza 819mg [id number]. Pt also endorsed odd somatic delusions/associations of "brain cells dying" and "water in ears" when answering questions about his past medical history in the ED. Followed by medical team for underlying comorbidities and recent acute renal failure Events since last encounter Has no complaints today. Slept well last night. Results of lab work discussed. Advised follow up with collision center manager as outpatient post discharge for regular monitoring. Objective Physical Examination Other physical findings General: obese male in NAD. Skin: Warm, dry, intact. Cardiovascular: Regular rate and rhythm, no MRG, no jugular venous distention, BLE 1+ edema. Respiratory:CTAB, no accessory muscle use noted. Abdomen: Bowel sounds +, no tenderness, no distention Musculoskeletal: No joint deformities, Neurologic: CN 2-12 grossly intact, alert and oriented 3 Psychiatric: Appropriate mood and affect, no anxiety or agitation A-FIB/CHADSVASC A-FIB History Current/History of A-Fib/PAF?: Yes Age/Risk Factor Scoring CHADSVASC: CHADSVASC Response (Comments) Value Age Risk Factor Age < 65 years old 0 Gender Risk Factor Male 0 Hx of CHF Yes 1 Hx of HTN Yes 1 Hx of Diabetes Yes 1 Total 3 Assessment /Plan Assessment Type 2 diabetes mellitus -Continue Diabetic diet -Finger stick checks prior to meals and at bedtime with coverage with insulin per sliding scale protocol -Start patient on glipizide -Discontinue metformin given reduced renal function -Check hemoglobin A1c Hypertension -Continue current medications -. Vital signs monitoring every 4 hours -. Target systolic blood pressure less than 140 mmHg Paroxysmal atrial fibrillation -On anticoagulation therapy with apixaban -Currently in sinus rhythm at a controlled rate -Stable Chronic kidney disease stage III -Metformin has been discontinued and discussed with patient -Recent basic metabolic panel. Discussed with him today -Follow up with outpatient collision center manager after discharge for continued monitoring of renal function and management Schizoaffective disorder -Presenting with persisting auditory and visual hallucinations -Management by primary team Hypothyroidism -Continue Synthroid Obstructive sleep apnea -CPAP QHS DVT prophylaxis -Patient is fully anticoagulated Plan/VTE VTE Prophylaxis Ordered?: Yes VS, I&O, 24H, Fishbone Vital Signs/I&O Vital Signs Date Time Temp Pulse Resp B/P (MAP) Pulse Ox O2 Delivery O2 Flow Rate FiO2 01/11/19 08:54 87 114/64 01/11/19 07:19 98.0 16 01/10/19 08:27 Room Air 01/09/19 22:57 99 Laboratory Data 24H LABS Laboratory Tests 2 01/10/19 11:43: Bedside Glucose (Misc Panel) 185H 01/10/19 17:19: Bedside Glucose (Misc Panel) 126H 01/10/19 21:23: Bedside Glucose (Misc Panel) 202H 01/11/19 06:06: Bedside Glucose (Misc Panel) 157H 01/11/19 06:11: Nucleated Red Blood Cells % (auto) 0.0, Anion Gap 5L, Glomerular Filtration Rate 52.8L, Blood Urea Nitrogen 23H, Creatinine 1.46H, Sodium Level 135L, Potassium Level 4.4, Chloride Level 103, Carbon Dioxide Level 27, Calcium Level 9.2, Aspartate Amino Transf (AST/SGOT) 16, Alanine Aminotransferase (ALT/SGPT) 25, Alkaline Phosphatase 84, Total Bilirubin 0.7, Total Protein 7.3, Albumin 4.0, Albumin/Globulin Ratio 1.21 CBC/BMP Laboratory Tests 01/11/19 06:11 Red Blood Count 5.21, Mean Corpuscular Volume 86.2, Mean Corpuscular Hemoglobin 28.4, Mean Corpuscular Hemoglobin Concent 33.0, Red Cell Distribution Width 12.6, Calcium Level 9.2, Aspartate Amino Transf (AST/SGOT) 16, Alanine Aminotransferase (ALT/SGPT) 25, Alkaline Phosphatase 84, Total Bilirubin 0.7, Total Protein 7.3, Albumin 4.0 JUNIE MARTINEZ January 11, 2019 11:16
--- NOTE | 2019-01-11 11:38 | MHIPNPDOC ---
[facility] Progress Note Progress Note DATE OF SERVICE: 01/11/19 HISTORY: Patient is a 58 -year-old , male, with a history of schizoaffective d/o followed at [facility] who presented to ED endorsing VH of "neon spirals and bus," AH of "whispers" he could not make out, and extremity tremors that first started with im invega sustenna 234mg qmonth and worsened once switch to im invega trinza 819mg [id number]. Pt also endorsed odd somatic delusions/associations of "brain cells dying" and "water in ears" when answering questions about his past medical history in the ED. Pt feared for his safe per ED due to AVH. VITAL SIGNS: See below. NEW TEST RESULTS: Glomerular Filtration Rate 52.8L, Blood Urea Nitrogen 23H, Creatinine 1.46H (mildly improved except BUN). rest of cmp/cbc roughly within normal limits CURRENT MEDICATIONS: See below. MENTAL STATUS EXAMINATION: General Appearance: well groomed, appears stated age, hospital scrubs/clothing Build: overweight Demeanor: average Eye Contact: average Activity: average, improved hand tremors when in action Behavior: cooperative Speech: spontaneous, reg/rate,rhythm,volume Mood: monothymic, flat Mood "better" Affect: monothymic, flat, less anxious Thought Process: concrete, associative (somatic) Thought Content (Delusions): somatic, Denies AVH today, Denies SI/HI Thought Content (Other): appropriate, coherent Thought Content (Aggressive): none reported Perception (Hallucinations): none reported Perception (Other): none reported Cognition (Impairment of): none reported Oriented: Awake, Alert, Oriented times three Insight: fair Judgment: Fair Psychosis: none reported DIAGNOSES: Schizoaffective D/O Cognitive d/o vs. Psychosis (not related to hx schizoaffective d/o) secondary GME iatrogenic effects of invega ASSESSMENT:Pt seen and states he feels better today as his hand tremors are improved although mildly still present and he denies AVH. States he tolerating start of inderal and abilify well and feels they are beneficial and denies side effects. Renal labs are slightly improved except BUN and pt is making sure to stay hydrated thru drink water thru out the day. Recommended to never take invega products again. Denies SI/HI, hallucinations, delusions. Feels safe here. MANAGEMENT PLAN: continue plan. daily cmp and cpk today. check lfts to monitor. Medications: abilify mg bid. inderal 10mg tid TIME SPENT: 30 minutes. Vital Signs Vital Signs Date Time Temp Pulse Resp B/P (MAP) Pulse Ox O2 Delivery O2 Flow Rate FiO2 01/11/19 08:54 87 114/64 01/11/19 07:19 98.0 16 01/10/19 08:27 Room Air 01/09/19 22:57 99 Laboratory Data 24H Labs Laboratory Tests 2 01/10/19 11:43: Bedside Glucose (Misc Panel) 185H 01/10/19 17:19: Bedside Glucose (Misc Panel) 126H 01/10/19 21:23: Bedside Glucose (Misc Panel) 202H 01/11/19 06:06: Bedside Glucose (Misc Panel) 157H 01/11/19 06:11: Nucleated Red Blood Cells % (auto) 0.0, Anion Gap 5L, Glomerular Filtration Rate 52.8L, Blood Urea Nitrogen 23H, Creatinine 1.46H, Sodium Level 135L, Potassium Level 4.4, Chloride Level 103, Carbon Dioxide Level 27, Calcium Level 9.2, Aspartate Amino Transf (AST/SGOT) 16, Alanine Aminotransferase (ALT/SGPT) 25, Alkaline Phosphatase 84, Total Bilirubin 0.7, Total Protein 7.3, Albumin 4.0, Albumin/Globulin Ratio 1.21 CBC/BMP Laboratory Tests 01/11/19 06:11 Red Blood Count 5.21, Mean Corpuscular Volume 86.2, Mean Corpuscular Hemoglobin 28.4, Mean Corpuscular Hemoglobin Concent 33.0, Red Cell Distribution Width 12.6, Calcium Level 9.2, Aspartate Amino Transf (AST/SGOT) 16, Alanine Aminotransferase (ALT/SGPT) 25, Alkaline Phosphatase 84, Total Bilirubin 0.7, Total Protein 7.3, Albumin 4.0 Current Medications Current Medications Acetaminophen (Tylenol Tab) 650 mg Q6HP PRN PO HEADACHE or DISCOMFORT; Start 01/09/19 at 23:15 Al Hydrox/Mg Hydrox/Simethicone (Mylanta) 30 ml Q4HP PRN PO HEARTBURN/INDIGESTION; Start 01/09/19 at 23:15 Amantadine HCl (Symmetrel) 100 mg DAILY@1200 PO Last administered on 01/10/19at 11:47; Start 01/10/19 at 12:00 Amantadine HCl (Symmetrel) 200 mg DAILY@0800 PO Last administered on 01/11/19at 08:52; Start 01/10/19 at 08:00 Apixaban (Eliquis) 5 mg BID PO Last administered on 01/11/19 08:52; Start 01/10/19 at 09:00 Aripiprazole (AbiLIFY) 5 mg BID PO Last administered on 01/11/19 08:52; Start 01/10/19 at 09:00 Atorvastatin Calcium (Lipitor) 10 mg QHS PO Last administered on 01/10/19 20:15; Start 01/10/19 at 21:00 Buspirone HCl (Buspar) 30 mg BID@0800,1700 PO Last administered on 01/11/19 08:53; Start 01/10/19 at 08:00 Chlorthalidone (Hygroton, Chlorthalidone) 12.5 mg DAILY PO Last administered on 01/11/19 08:53; Start 01/10/19 at 09:00 Dextrose (Dextrose 50%) 25 ml ASDIRECTED PRN IV SEE LABEL COMMENTS; Start 01/10/19 at 04:00 Duloxetine HCl (Cymbalta) 60 mg DAILY PO Last administered on 01/11/19at 08:52; Start 01/10/19 at 09:00 Fluticasone Propionate (Flonase 0.05% Nasal [place]) 1 SPRAY IN EACH NOSTRIL DAILY NA Last administered on 01/11/19 08:52; Start 01/10/19 at 09:00 Gabapentin (Neurontin) 600 mg TID PO Last administered on 01/11/19 08:52; Start 01/10/19 at 09:00 Glucagon (Glucagon) 1 mg ASDIRECTED PRN SC SEE LABEL COMMENTS; Start 01/10/19 at 04:00 Glucose (Glucose) 16 GM ASDIRECTED PRN PO SEE LABEL COMMENTS; Start 01/10/19 at 04:00 Home Med (Med Rec Complete!) ASDIRECTED XX ; Start 01/10/19 at 00:00; Stop 01/10/19 at 00:04; Status DC Hydroxyzine HCl (Atarax) 100 mg QHS PO Last administered on 01/10/19at 20:15; Start 01/10/19 at 21:00 Insulin Human Lispro (HumaLOG INSULIN) See Protocol Table AC SC Last administered on 01/11/19at 06:59; Start 01/10/19 at 07:30 Insulin Human Lispro (HumaLOG INSULIN) See Protocol Table QHS SC ; Start 01/10/19 at 21:00 Lactobacillus Acidophilus (Bacid) 1 ea DAILY PO Last administered on 01/11/19at 08:53; Start 01/10/19 at 09:00 Levothyroxine Sodium (Synthroid) 112 mcg DAILY@0600 PO Last administered on 01/11/19at 06:02; Start 01/10/19 at 06:00 Lisinopril (Prinivil) 10 mg DAILY PO Last administered on 01/11/19at 08:54; Start 01/10/19 at 09:00 Loratadine (Claritin) 10 mg DAILY@1700 PO Last administered on 01/10/19at 17:25; Start 01/10/19 at 17:00 Magnesium Hydroxide (Milk Of Magnesia) 30 ml DAILYPRN PRN PO CONSTIPATION; Start 01/09/19 at 23:15 Metformin HCl (Glucophage) 1,000 mg BID@0800,1800 PO Last administered on 01/10/19at 08:13; Start 01/10/19 at 08:00; Stop 01/10/19 at 15:15; Status DC Metoprolol Tartrate (Lopressor) 50 mg BID@0800,1700 PO Last administered on 01/11/19at 08:54; Start 01/10/19 at 08:00 Nicotine (Nicoderm Cq 21mg) 1 patch DAILY PRN TD [place]; Start 01/09/19 at 23:15 Omeprazole (PriLOSEC) 40 mg DAILY PO Last administered on 01/11/19at 08:53; Start 01/10/19 at 09:00 Propranolol HCl (Inderal) 10 mg TID PO Last administered on 01/11/19at 08:53; Start 01/10/19 at 21:00 Quetiapine Fumarate (SEROquel) 50 mg QHS PO Last administered on 01/10/19at 20:16; Start 01/10/19 at 21:00 Spironolactone (Aldactone) 12.5 mg DAILY PO Last administered on 01/11/19at 08:52; Start 01/10/19 at 09:00 Trazodone HCl (Desyrel) 50 mg QHSP PRN PO INSOMNIA; Start 01/09/19 at 23:15 Allergies Coded Allergies: Penicillins (Verified Allergy, Unknown, 01/04/19) mesalamine (Verified Allergy, Unknown, lialda, 01/04/19) fluoxetine (Verified Adverse Reaction, Mild, hallucinations, 01/04/19) A-FIB/CHADSVASC A-FIB History Current/History of A-Fib/PAF?: Yes Current Oral Anticoagulant The: Yes Age/Risk Factor Scoring CHADSVASC: CHADSVASC Response (Comments) Value Age Risk Factor Age < 65 years old 0 Gender Risk Factor Male 0 Hx of CHF Yes 1 Hx of HTN Yes 1 Hx of Diabetes Yes 1 Total 3 RADHA BERRY DO January 11, 2019 11:38 am
[2019-01-11] MEDS ORDERED: glipiZIDE *2.5MG* 1/2 TABLET PO SCH (13:00)
[2019-01-11 13:08] LABS: HEMOGLOBIN A1c 6.5 %
[2019-01-11 13:25] LABS: ALBUMIN 3.8 GM/DL (3.2-5.2); BILIRUBIN,DIRECT 0.1 MG/DL (0.0-0.2); BILIRUBIN,TOTAL 0.6 MG/DL (0.2-1.0); CREATININE FOR GFR 1.33 MG/DL (0.70-1.30); GLOMERULAR FILTRATION RATE 58.8 (>56); POTASSIUM SERUM 4.7 MEQ/L (3.5-5.1); TOTAL PROTEIN 7.1 GM/DL (6.4-8.2)
[2019-01-11] MEDS: glipiZIDE (GLUCOTROL) 5 MG TAB PO SCH (14:40)
[2019-01-11] MEDS: LORATADINE 10 MG TAB PO SCH (16:10)
[2019-01-11 18:00] VITALS: BP 150/76
[2019-01-11] MEDS: hydrOXYzine 50 MG TAB PO SCH (21:11)
[2019-01-11] MEDS: ATORVASTATIN 10 MG TAB PO SCH (21:11)
[2019-01-11] MEDS: QUEtiapine FUMARATE 50 MG TAB PO SCH (21:11)
[2019-01-12 05:34] VITALS: BP 141/79
[2019-01-12] MEDS: LEVOTHYROXINE 112MCG TABLET (0.112MG) PO SCH (06:15)
[2019-01-12] MEDS: ACETAMINOPHEN TAB 650MG DOSE (2X325MG) PO PRN ×2 (06:27→20:02)
[2019-01-12 06:29] VITALS: BP 141/79
[2019-01-12] MEDS: HumaLOG INSULIN (NovoLOG) PER UNIT SC SCH ×4 (06:40→20:01)
[2019-01-12] MEDS: PILL CRUSHER/CUTTER 1 EACH XX PRN (07:47)
[2019-01-12] MEDS: glipiZIDE (GLUCOTROL) 5 MG TAB PO SCH (07:48)
[2019-01-12 08:16] LABS: ALBUMIN 3.7 GM/DL (3.2-5.2); ALT/SGPT 23 U/L (12-78); BILIRUBIN,TOTAL 0.7 MG/DL (0.2-1.0); BLOOD UREA NITROGEN 17 MG/DL (7-18); CALCIUM LEVEL 9.2 MG/DL (8.5-10.1); CARBON DIOXIDE LEVEL 30 MEQ/L (21-32); CHLORIDE LEVEL 101 MEQ/L (98-107); CREATININE FOR GFR 1.29 MG/DL (0.70-1.30); GLOMERULAR FILTRATION RATE > 60.0 (>56); GLUCOSE, FASTING 176 MG/DL (70-100); MAGNESIUM LEVEL 1.5 MG/DL (1.8-2.4); POTASSIUM SERUM 4.2 MEQ/L (3.5-5.1); SODIUM LEVEL 136 MEQ/L (136-145); TOTAL PROTEIN 6.5 GM/DL (6.4-8.2)
[2019-01-12] MEDS: busPIRone 5 MG TAB PO SCH ×2 (08:30→17:18)
[2019-01-12] MEDS: PROPRANOLOL 10 MG TAB PO SCH ×3 (08:31→20:02)
[2019-01-12] MEDS: LISINOPRIL 10 MG TAB PO SCH (08:31)
[2019-01-12] MEDS: DULoxetine 30 MG CAP (CYMBALTA) PO SCH (08:31)
[2019-01-12] MEDS: SPIRONOLACTONE 12.5MG PER 1/2 TABLET PO SCH (08:31)
[2019-01-12] MEDS: METOPROLOL TART 50 MG TAB PO SCH ×2 (08:31→17:18)
[2019-01-12] MEDS: GABAPENTIN 300 MG CAP PO SCH ×3 (08:31→20:01)
[2019-01-12] MEDS: LACTOBACILLUS ACIDOPHILUS CAP (BACID) PO SCH (08:31)
[2019-01-12] MEDS: OMEPRAZOLE 20 MG CAP PO SCH (08:31)
[2019-01-12] MEDS: AMANTADINE 100 MG CAP PO SCH ×2 (08:32→12:03)
[2019-01-12] MEDS: FLUTICASONE PROP 0.05% NASAL SPRAY 16 GM (FLONASE) SCH (08:32)
[2019-01-12] MEDS: CHLORTHALIDONE 12.5MG PER 1/2 TABLET PO SCH (08:32)
[2019-01-12] MEDS: APIXABAN 5 MG TAB (ELIQUIS) PO SCH ×2 (08:32→20:01)
--- NOTE | 2019-01-12 09:34 | MHIPNPDOC ---
[facility] Progress Note Progress Note DATE OF SERVICE: 01/12/19 HISTORY: Patient is a 58 -year-old , male, with a history of schizoaffective d/o followed at [facility] who presented to ED endorsing VH of "neon spirals and bus," AH of "whispers" he could not make out, and extremity tremors that first started with im invega sustenna 234mg qmonth and worsened once switch to im invega trinza 819mg [id number]. Pt also endorsed odd somatic delusions/associations of "brain cells dying" and "water in ears" when answering questions about his past medical history in the ED. Pt feared for his safe per ED due to AVH. VITAL SIGNS: See below. NEW TEST RESULTS: Glomerular Filtration Rate > 60.0, Blood Urea Nitrogen 17, Creatinine 1.29. rest of cmp/cbc roughly within normal limits. CPK 156 (normal) CURRENT MEDICATIONS: See below. MENTAL STATUS EXAMINATION: General Appearance: well groomed, appears stated age, hospital scrubs/clothing Build: overweight Demeanor: average Eye Contact: average Activity: average, improved hand tremors when in action Behavior: cooperative Speech: spontaneous, reg/rate,rhythm,volume Mood: monothymic, flat Mood "ok" Affect: monothymic, flat, less anxious Thought Process: concrete, associative (somatic) Thought Content (Delusions): somatic, Denies AH today, Denies SI/HI. endorses very occasional VH of neon spots Thought Content (Other): appropriate, coherent Thought Content (Aggressive): none reported Perception (Hallucinations): none reported Perception (Other): none reported Cognition (Impairment of): none reported Oriented: Awake, Alert, Oriented times three Insight: fair Judgment: Fair Psychosis: none reported DIAGNOSES: Schizoaffective D/O Cognitive d/o vs. Psychosis (not related to hx schizoaffective d/o) secondary GME iatrogenic effects of invega ASSESSMENT:Pt seen and states he feels "ok" today and his hand tremors are improved although mildly still present, endorses very occasional neon visual spots, and he denies AH. States he tolerating start of inderal and abilify well and feels they are beneficial and denies side effects. Renal labs are improved to high normal and pt is making sure to stay hydrated thru drink water thru out the day. Recommended to never take invega products again. Denies SI/HI, AH, delusions. Feels safe here. MANAGEMENT PLAN: continue plan. Medications: abilify mg bid. inderal 10mg tid Amantadine 100 mg DAILY@1200 and 200 mg DAILY@0800 Buspar 30 mg BID@0800,1700 Cymbalta 60 mg DAILY Gabapentin 600 mg TID Hydroxyzine 100 mg QHS SEROquel 50 mg QHS TIME SPENT: 30 minutes. Vital Signs Vital Signs Date Time Temp Pulse Resp B/P (MAP) Pulse Ox O2 Delivery O2 Flow Rate FiO2 01/12/19 08:31 74 120/64 01/12/19 06:29 98.0 16 01/10/19 08:27 Room Air 01/09/19 22:57 99 Laboratory Data 24H Labs Laboratory Tests 2 01/11/19 11:47: Bedside Glucose (Misc Panel) 236H 01/11/19 12:18: Anion Gap 7L, Glomerular Filtration Rate 58.8, Blood Urea Nitrogen 21H, Creatinine 1.33H, Sodium Level 135L, Potassium Level 4.7, Chloride Level 101, Carbon Dioxide Level 27, Calcium Level 9.0, Aspartate Amino Transf (AST/SGOT) 14, Alanine Aminotransferase (ALT/SGPT) 25, Total Creatine Kinase 152, Alkaline Phosphatase 88, Total Bilirubin 0.6, Direct Bilirubin 0.1, Total Protein 7.1, Albumin 3.8, Albumin/Globulin Ratio 1.15 01/11/19 16:15: Bedside Glucose (Misc Panel) 138H 01/11/19 21:07: Bedside Glucose (Misc Panel) 214H 01/12/19 06:32: Bedside Glucose (Misc Panel) 193H 01/12/19 07:17: Anion Gap 5L, Glomerular Filtration Rate > 60.0, Blood Urea Nitrogen 17, Creatinine 1.29, Sodium Level 136, Potassium Level 4.2, Chloride Level 101, Carbon Dioxide Level 30, Calcium Level 9.2, Aspartate Amino Transf (AST/SGOT) 12, Alanine Aminotransferase (ALT/SGPT) 23, Alkaline Phosphatase 77, Total Bilirubin 0.7, Total Protein 6.5, Albumin 3.7, Magnesium Level 1.5L, Albumin/Globulin Ratio 1.32 CBC/BMP Laboratory Tests 01/11/19 12:18 Calcium Level 9.0, Aspartate Amino Transf (AST/SGOT) 14, Alanine Aminotransferase (ALT/SGPT) 25, Total Creatine Kinase 152, Alkaline Phosphatase 88, Total Bilirubin 0.6, Direct Bilirubin 0.1, Total Protein 7.1, Albumin 3.8 01/12/19 07:17 Calcium Level 9.2, Aspartate Amino Transf (AST/SGOT) 12, Alanine Aminotransferase (ALT/SGPT) 23, Alkaline Phosphatase 77, Total Bilirubin 0.7, Total Protein 6.5, Albumin 3.7 Current Medications Current Medications Acetaminophen (Tylenol Tab) 650 mg Q6HP PRN PO HEADACHE or DISCOMFORT Last administered on 01/12/19 06:27; Start 01/09/19 at 23:15 Al Hydrox/Mg Hydrox/Simethicone (Mylanta) 30 ml Q4HP PRN PO HEARTBURN/INDIGESTION; Start 01/09/19 at 23:15 Amantadine HCl (Symmetrel) 100 mg DAILY@1200 PO Last administered on 01/11/19 11:48; Start 01/10/19 at 12:00 Amantadine HCl (Symmetrel) 200 mg DAILY@0800 PO Last administered on 01/12/19 08:32; Start 01/10/19 at 08:00 Apixaban (Eliquis) 5 mg BID PO Last administered on 01/12/19 08:32; Start 01/10/19 at 09:00 Aripiprazole (AbiLIFY) 5 mg BID PO Last administered on 01/12/19 08:31; Start 01/10/19 at 09:00 Atorvastatin Calcium (Lipitor) 10 mg QHS PO Last administered on 01/11/19 21:11; Start 01/10/19 at 21:00 Buspirone HCl (Buspar) 30 mg BID@0800,1700 PO Last administered on 01/12/19 08:30; Start 01/10/19 at 08:00 Chlorthalidone (Hygroton, Chlorthalidone) 12.5 mg DAILY PO Last administered on 01/12/19 08:32; Start 01/10/19 at 09:00 Dextrose (Dextrose 50%) 25 ml ASDIRECTED PRN IV SEE LABEL COMMENTS; Start 01/10/19 at 04:00 Duloxetine HCl (Cymbalta) 60 mg DAILY PO Last administered on 01/12/19 08:31; Start 01/10/19 at 09:00 Fluticasone Propionate (Flonase 0.05% Nasal [place]) 1 SPRAY IN EACH NOSTRIL DAILY NA Last administered on 01/12/19 08:32; Start 01/10/19 at 09:00 Gabapentin (Neurontin) 600 mg TID PO Last administered on 01/12/19 08:31; Start 01/10/19 at 09:00 Glipizide (Glucotrol) 2.5 mg DAILY@0730 PO Last administered on 01/12/19at 07:48; Start 01/11/19 at 13:00 Glipizide (Glucotrol) 2.5 mg DAILY@0730 PO ; Start 01/11/19 at 13:00; Status Cancel Glucagon (Glucagon) 1 mg ASDIRECTED PRN SC SEE LABEL COMMENTS; Start 01/10/19 at 04:00 Glucose (Glucose) 16 GM ASDIRECTED PRN PO SEE LABEL COMMENTS; Start 01/10/19 at 04:00 Home Med (Med Rec Complete!) ASDIRECTED XX ; Start 01/10/19 at 00:00; Stop 01/10/19 at 00:04; Status DC Hydroxyzine HCl (Atarax) 100 mg QHS PO Last administered on 01/11/19at 21:11; Start 01/10/19 at 21:00 Insulin Human Lispro (HumaLOG INSULIN) See Protocol Table AC SC Last administered on 01/11/19at 16:16; Start 01/10/19 at 07:30 Insulin Human Lispro (HumaLOG INSULIN) See Protocol Table QHS SC ; Start 01/10/19 at 21:00 Lactobacillus Acidophilus (Bacid) 1 ea DAILY PO Last administered on 01/12/19 08:31; Start 01/10/19 at 09:00 Levothyroxine Sodium (Synthroid) 112 mcg DAILY@0600 PO Last administered on 01/12/19at 06:15; Start 01/10/19 at 06:00 Lisinopril (Prinivil) 10 mg DAILY PO Last administered on 01/12/19at 08:31; Start 01/10/19 at 09:00 Loratadine (Claritin) 10 mg DAILY@1700 PO Last administered on 01/11/19at 16:10; Start 01/10/19 at 17:00 Magnesium Hydroxide (Milk Of Magnesia) 30 ml DAILYPRN PRN PO CONSTIPATION; Start 01/09/19 at 23:15 Metformin HCl (Glucophage) 1,000 mg BID@0800,1800 PO Last administered on 01/10/19 08:13; Start 01/10/19 at 08:00; Stop 01/10/19 at 15:15; Status DC Metoprolol Tartrate (Lopressor) 50 mg BID@0800,1700 PO Last administered on 01/12/19 08:31; Start 01/10/19 at 08:00 Nicotine (Nicoderm Cq 21mg) 1 patch DAILY PRN TD Craving; Start 01/09/19 at 23:15 Omeprazole (PriLOSEC) 40 mg DAILY PO Last administered on 01/12/19 08:31; Start 01/10/19 at 09:00 Propranolol HCl (Inderal) 10 mg TID PO Last administered on 01/12/19 08:31; Start 01/10/19 at 21:00 Quetiapine Fumarate (SEROquel) 50 mg QHS PO Last administered on 01/11/19 21:11; Start 01/10/19 at 21:00 Spironolactone (Aldactone) 12.5 mg DAILY PO Last administered on 01/12/19 08:31; Start 01/10/19 at 09:00 Trazodone HCl (Desyrel) 50 mg QHSP PRN PO INSOMNIA; Start 01/09/19 at 23:15 Allergies Coded Allergies: Penicillins (Verified Allergy, Unknown, 01/04/19) mesalamine (Verified Allergy, Unknown, lialda, 01/04/19) fluoxetine (Verified Adverse Reaction, Mild, hallucinations, 01/04/19) A-FIB/CHADSVASC A-FIB History Current/History of A-Fib/PAF?: Yes Current Oral Anticoagulant The: Yes Age/Risk Factor Scoring CHADSVASC: CHADSVASC Response (Comments) Value Age Risk Factor Age < 65 years old 0 Gender Risk Factor Male 0 Hx of CHF Yes 1 Hx of HTN Yes 1 Hx of Diabetes Yes 1 Total 3 RADHA BERRY DO January 12, 2019 9:17 am
--- NOTE | 2019-01-12 13:55 | IPNPDOC ---
Subjective Date Seen The patient was seen on 01/12/19. Subjective Chief Complaint/HPI 58 -year-old , male, with a history of schizoaffective presented to ED endorsing VH of "neon spirals and bus," AH of "whispers" he could not make out, and extremity tremors that first started with im invega sustenna 234mg qmonth and worsened once switch to im invega trinza 819mg [id number]. Pt also endorsed odd somatic delusions/associations of "brain cells dying" and "water in ears" when answering questions about his past medical history in the ED. Followed by medical team for underlying comorbidities and recent acute renal failure Events since last encounter Patient has no new complaints, denies any pain, denies dysuria, chest pain, shortness of breath. Objective Physical Examination Other physical findings General: obese male in NAD. Skin: Warm, dry, intact. Cardiovascular: Regular rate and rhythm, no MRG, no jugular venous distention, BLE 1+ edema. Respiratory:CTAB, no accessory muscle use noted. Abdomen: Bowel sounds +, no tenderness, no distention Musculoskeletal: No joint deformities, Neurologic: CN 2-12 grossly intact, alert and oriented 3 Psychiatric: Appropriate mood and affect, no anxiety or agitation A-FIB/CHADSVASC A-FIB History Current/History of A-Fib/PAF?: Yes Current Oral Anticoagulant The: Yes Age/Risk Factor Scoring CHADSVASC: CHADSVASC Response (Comments) Value Age Risk Factor Age < 65 years old 0 Gender Risk Factor Male 0 Hx of CHF Yes 1 Hx of HTN Yes 1 Hx of Diabetes Yes 1 Total 3 Assessment /Plan Assessment Type 2 diabetes mellitus -Hemoglobin A1c 6.1 -No indication to initiate insulin therapy at this time with discontinuation of metformin -Continue glipizide -Discussed with patient Hypertension -Continue current medications -. Vital signs monitoring every 4 hours -. Target systolic blood pressure less than 140 mmHg Paroxysmal atrial fibrillation -On anticoagulation therapy with apixaban -Stable Chronic kidney disease stage III -Renal function is back to baseline -Started on glipizide yesterday. We will continue -Follow up with outpatient investment director after discharge for continued monitoring of renal function and management Schizoaffective disorder -Presenting with persisting auditory and visual hallucinations -Management by primary team Hypothyroidism -Continue Synthroid Obstructive sleep apnea -CPAP QHS DVT prophylaxis -Patient is fully anticoagulated Plan/VTE VTE Prophylaxis Ordered?: Yes VS, I&O, 24H, Fishbone Vital Signs/I&O Vital Signs Date Time Temp Pulse Resp B/P (MAP) Pulse Ox O2 Delivery O2 Flow Rate FiO2 01/12/19 08:31 74 120/64 01/12/19 06:29 98.0 16 01/10/19 08:27 Room Air 01/09/19 22:57 99 Laboratory Data 24H LABS Laboratory Tests 2 01/11/19 16:15: Bedside Glucose (Misc Panel) 138H 01/11/19 21:07: Bedside Glucose (Misc Panel) 214H 01/12/19 06:32: Bedside Glucose (Misc Panel) 193H 01/12/19 07:17: Anion Gap 5L, Glomerular Filtration Rate > 60.0, Blood Urea Nitrogen 17, Creatinine 1.29, Sodium Level 136, Potassium Level 4.2, Chloride Level 101, Carbon Dioxide Level 30, Calcium Level 9.2, Aspartate Amino Transf (AST/SGOT) 12, Alanine Aminotransferase (ALT/SGPT) 23, Alkaline Phosphatase 77, Total Bilirubin 0.7, Total Protein 6.5, Albumin 3.7, Magnesium Level 1.5L, Albumin/Globulin Ratio 1.32 01/12/19 11:59: Bedside Glucose (Misc Panel) 248H CBC/BMP Laboratory Tests 01/12/19 07:17 Calcium Level 9.2, Aspartate Amino Transf (AST/SGOT) 12, Alanine Aminotransferase (ALT/SGPT) 23, Alkaline Phosphatase 77, Total Bilirubin 0.7, Total Protein 6.5, Albumin 3.7 JUNIE MARTINEZ [facility] January 12, 2019 13:55
[2019-01-12] MEDS: LORATADINE 10 MG TAB PO SCH (17:18)
[2019-01-12 17:50] VITALS: BP 122/70
[2019-01-12 18:18] VITALS: BP 122/70
[2019-01-12] MEDS: QUEtiapine FUMARATE 50 MG TAB PO SCH (20:01)
[2019-01-12] MEDS: ATORVASTATIN 10 MG TAB PO SCH (20:01)
[2019-01-12] MEDS: hydrOXYzine 50 MG TAB PO SCH (20:01)
[2019-01-13] MEDS: LEVOTHYROXINE 112MCG TABLET (0.112MG) PO SCH (06:23)
[2019-01-13] MEDS: glipiZIDE (GLUCOTROL) 5 MG TAB PO SCH (06:23)
[2019-01-13] MEDS: HumaLOG INSULIN (NovoLOG) PER UNIT SC SCH ×4 (06:25→20:22)
[2019-01-13] MEDS: AMANTADINE 100 MG CAP PO SCH ×2 (08:59→12:07)
[2019-01-13] MEDS: FLUTICASONE PROP 0.05% NASAL SPRAY 16 GM (FLONASE) SCH (08:59)
[2019-01-13] MEDS: SPIRONOLACTONE 12.5MG PER 1/2 TABLET PO SCH (08:59)
[2019-01-13] MEDS: LISINOPRIL 10 MG TAB PO SCH (09:00)
[2019-01-13] MEDS: METOPROLOL TART 50 MG TAB PO SCH ×2 (09:00→17:02)
[2019-01-13] MEDS: PROPRANOLOL 10 MG TAB PO SCH ×3 (09:00→20:22)
[2019-01-13] MEDS: CHLORTHALIDONE 12.5MG PER 1/2 TABLET PO SCH (09:00)
[2019-01-13] MEDS: GABAPENTIN 300 MG CAP PO SCH ×3 (09:00→20:20)
[2019-01-13] MEDS: APIXABAN 5 MG TAB (ELIQUIS) PO SCH ×2 (09:00→20:20)
[2019-01-13] MEDS: LACTOBACILLUS ACIDOPHILUS CAP (BACID) PO SCH (09:00)
[2019-01-13] MEDS: DULoxetine 30 MG CAP (CYMBALTA) PO SCH (09:01)
[2019-01-13] MEDS: OMEPRAZOLE 20 MG CAP PO SCH (09:01)
[2019-01-13] MEDS: busPIRone 5 MG TAB PO SCH ×2 (09:01→17:02)
[2019-01-13] MEDS: LORATADINE 10 MG TAB PO SCH (17:02)
[2019-01-13 18:00] VITALS: BP 112/66
[2019-01-13] MEDS: QUEtiapine FUMARATE 50 MG TAB PO SCH (20:20)
[2019-01-13] MEDS: hydrOXYzine 50 MG TAB PO SCH (20:20)
[2019-01-13] MEDS: ATORVASTATIN 10 MG TAB PO SCH (20:20)
--- NOTE | 2019-01-13 22:16 | MHIPNPDOC ---
[facility] Progress Note Progress Note DATE OF SERVICE: 01/13/19 HISTORY: Patient is a 58 -year-old , male, with a history of schizoaffective d/o followed at [facility] who presented to ED endorsing VH of "neon spirals and bus," AH of "whispers" he could not make out, and extremity tremors that first started with im invega sustenna 234mg qmonth and worsened once switch to im invega trinza 819mg [id number]. Pt also endorsed odd somatic delusions/associations of "brain cells dying" and "water in ears" when answering questions about his past medical history in the ED. Pt feared for his safe per ED due to AVH. VITAL SIGNS: See below. NEW TEST RESULTS: See below CURRENT MEDICATIONS: See below. MENTAL STATUS EXAMINATION: Patient is a 58-year old male, who is alert, cooperative, laying in bed. Speech: Is monotone, slow, a little slurred. Language skills are fair. Thought processes including: linear, coherent Thought content: worrisome thoughts about his kidney function Description of abnormal or psychotic thoughts: denies SI, denies HI, denies AV hallucinations Judgment: fair Insight: fair Orientation: x 3 Recent and remote memory: fair Attention span and concentration: fair Language: Polish Fund of knowledge: average Mood: depressed. Affect: flat, constricted, congruent with mood. DIAGNOSES: Schizoaffective D/O Cognitive d/o vs. Psychosis (not related to hx schizoaffective d/o) secondary GME iatrogenic effects of invega ASSESSMENT: Patient said he felt better, even when he looks depressed. He is cooperative and he is aware that he must drink water to improve his kidney function test. He is anxious about losing/not losing his kidneys MANAGEMENT PLAN: will continue with treatment plan as per Dr. Little. TIME SPENT: 15 minutes. Vital Signs Vital Signs Date Time Temp Pulse Resp B/P (MAP) Pulse Ox O2 Delivery O2 Flow Rate FiO2 01/13/19 20:22 58 140/70 01/13/19 18:00 97.9 16 01/10/19 08:27 Room Air 01/09/19 22:57 99 Laboratory Data 24H Labs Laboratory Tests 2 01/13/19 06:21: Bedside Glucose (Misc Panel) 253H 01/13/19 12:04: Bedside Glucose (Misc Panel) 257H 01/13/19 16:57: Bedside Glucose (Misc Panel) 239H 01/13/19 20:17: Bedside Glucose (Misc Panel) 295H Current Medications Current Medications Acetaminophen (Tylenol Tab) 650 mg Q6HP PRN PO HEADACHE or DISCOMFORT Last administered on 01/12/19 20:02; Start 01/09/19 at 23:15 Al Hydrox/Mg Hydrox/Simethicone (Mylanta) 30 ml Q4HP PRN PO HEARTBURN/INDIGESTION; Start 01/09/19 at 23:15 Amantadine HCl (Symmetrel) 100 mg DAILY@1200 PO Last administered on 01/13/19 12:07; Start 01/10/19 at 12:00 Amantadine HCl (Symmetrel) 200 mg DAILY@0800 PO Last administered on 01/13/19 08:59; Start 01/10/19 at 08:00 Apixaban (Eliquis) 5 mg BID PO Last administered on 01/13/19 20:20; Start 01/10/19 at 09:00 Aripiprazole (AbiLIFY) 5 mg BID PO Last administered on 01/13/19 20:20; Start 01/10/19 at 09:00 Atorvastatin Calcium (Lipitor) 10 mg QHS PO Last administered on 01/13/19 20:20; Start 01/10/19 at 21:00 Buspirone HCl (Buspar) 30 mg BID@0800,1700 PO Last administered on 01/13/19 17:02; Start 01/10/19 at 08:00 Chlorthalidone (Hygroton, Chlorthalidone) 12.5 mg DAILY PO Last administered on 01/13/19 09:00; Start 01/10/19 at 09:00 Dextrose (Dextrose 50%) 25 ml ASDIRECTED PRN IV SEE LABEL COMMENTS; Start 01/10/19 at 04:00 Duloxetine HCl (Cymbalta) 60 mg DAILY PO Last administered on 01/13/19 09:01; Start 01/10/19 at 09:00 Fluticasone Propionate (Flonase 0.05% Nasal [place]) 1 SPRAY IN EACH NOSTRIL DAILY NA Last administered on 01/13/19 08:59; Start 01/10/19 at 09:00 Gabapentin (Neurontin) 600 mg TID PO Last administered on 01/13/19at 20:20; Start 01/10/19 at 09:00 Glipizide (Glucotrol) 2.5 mg DAILY@0730 PO Last administered on 01/13/19at 06:23; Start 01/11/19 at 13:00 Glipizide (Glucotrol) 2.5 mg DAILY@0730 PO ; Start 01/11/19 at 13:00; Status Cancel Glucagon (Glucagon) 1 mg ASDIRECTED PRN SC SEE LABEL COMMENTS; Start 01/10/19 at 04:00 Glucose (Glucose) 16 GM ASDIRECTED PRN PO SEE LABEL COMMENTS; Start 01/10/19 at 04:00 Home Med (Med Rec Complete!) ASDIRECTED XX ; Start 01/10/19 at 00:00; Stop 01/10/19 at 00:04; Status DC Hydroxyzine HCl (Atarax) 100 mg QHS PO Last administered on 01/13/19at 20:20; Start 01/10/19 at 21:00 Insulin Human Lispro (HumaLOG INSULIN) See Protocol Table AC SC Last administered on 01/13/19at 17:25; Start 01/10/19 at 07:30 Insulin Human Lispro (HumaLOG INSULIN) See Protocol Table QHS SC Last administered on 01/13/19at 20:22; Start 01/10/19 at 21:00 Lactobacillus Acidophilus (Bacid) 1 ea DAILY PO Last administered on 01/13/19at 09:00; Start 01/10/19 at 09:00 Levothyroxine Sodium (Synthroid) 112 mcg DAILY@0600 PO Last administered on 01/13/19at 06:23; Start 01/10/19 at 06:00 Lisinopril (Prinivil) 10 mg DAILY PO Last administered on 01/13/19at 09:00; Start 01/10/19 at 09:00 Loratadine (Claritin) 10 mg DAILY@1700 PO Last administered on 01/13/19at 17:02; Start 01/10/19 at 17:00 Magnesium Hydroxide (Milk Of Magnesia) 30 ml DAILYPRN PRN PO CONSTIPATION; Start 01/09/19 at 23:15 Metformin HCl (Glucophage) 1,000 mg BID@0800,1800 PO Last administered on 5/1/19at 08:13; Start 01/10/19 at 08:00; Stop 01/10/19 at 15:15; Status DC Metoprolol Tartrate (Lopressor) 50 mg BID@0800,1700 PO Last administered on 01/13/19at 17:02; Start 01/10/19 at 08:00 Nicotine (Nicoderm Cq 21mg) 1 patch DAILY PRN TD Craving; Start 01/09/19 at 23:15 Omeprazole (PriLOSEC) 40 mg DAILY PO Last administered on 01/13/19at 09:01; Start 01/10/19 at 09:00 Propranolol HCl (Inderal) 10 mg TID PO Last administered on 01/13/19 15:29; Start 01/10/19 at 21:00 Quetiapine Fumarate (SEROquel) 50 mg QHS PO Last administered on 01/13/19at 20:20; Start 01/10/19 at 21:00 Spironolactone (Aldactone) 12.5 mg DAILY PO Last administered on 01/13/19at 08:59; Start 01/10/19 at 09:00 Trazodone HCl (Desyrel) 50 mg QHSP PRN PO INSOMNIA; Start 01/09/19 at 23:15 Allergies Coded Allergies: Penicillins (Verified Allergy, Unknown, 01/04/19) mesalamine (Verified Allergy, Unknown, lialda, 01/04/19) fluoxetine (Verified Adverse Reaction, Mild, hallucinations, 01/04/19) A-FIB/CHADSVASC A-FIB History Current/History of A-Fib/PAF?: No Current Oral Anticoagulant The: No Age/Risk Factor Scoring CHADSVASC: CHADSVASC Response (Comments) Value Age Risk Factor Age < 65 years old 0 Gender Risk Factor Male 0 Hx of CHF Yes 1 Hx of HTN Yes 1 Hx of Diabetes Yes 1 Total 3 KUNAL JENKINS MD January 13, 2019 22:08
[2019-01-14 06:35] VITALS: BP 150/76
[2019-01-14] MEDS: LEVOTHYROXINE 112MCG TABLET (0.112MG) PO SCH (06:35)
[2019-01-14] MEDS: glipiZIDE (GLUCOTROL) 5 MG TAB PO SCH (06:36)
[2019-01-14] MEDS: HumaLOG INSULIN (NovoLOG) PER UNIT SC SCH ×4 (06:37→20:47)
[2019-01-14] MEDS: FLUTICASONE PROP 0.05% NASAL SPRAY 16 GM (FLONASE) SCH (08:12)
[2019-01-14] MEDS: GABAPENTIN 300 MG CAP PO SCH ×3 (08:13→20:36)
[2019-01-14] MEDS: SPIRONOLACTONE 12.5MG PER 1/2 TABLET PO SCH (08:13)
[2019-01-14] MEDS: CHLORTHALIDONE 12.5MG PER 1/2 TABLET PO SCH (08:13)
[2019-01-14] MEDS: PROPRANOLOL 10 MG TAB PO SCH ×3 (08:13→20:38)
[2019-01-14] MEDS: OMEPRAZOLE 20 MG CAP PO SCH (08:13)
[2019-01-14] MEDS: busPIRone 5 MG TAB PO SCH ×2 (08:13→17:23)
[2019-01-14] MEDS: AMANTADINE 100 MG CAP PO SCH ×2 (08:13→12:11)
[2019-01-14] MEDS: LACTOBACILLUS ACIDOPHILUS CAP (BACID) PO SCH (08:13)
[2019-01-14] MEDS: APIXABAN 5 MG TAB (ELIQUIS) PO SCH ×2 (08:14→20:36)
[2019-01-14] MEDS: METOPROLOL TART 50 MG TAB PO SCH ×2 (08:14→17:23)
[2019-01-14] MEDS: DULoxetine 30 MG CAP (CYMBALTA) PO SCH (08:14)
[2019-01-14] MEDS: LISINOPRIL 10 MG TAB PO SCH (08:14)
[2019-01-14 08:17] VITALS: BP 122/64
[2019-01-14] MEDS: LORATADINE 10 MG TAB PO SCH (17:23)
[2019-01-14 18:00] VITALS: BP 108/58
--- NOTE | 2019-01-14 20:11 | MHIPNPDOC ---
[facility] Progress Note Progress Note DATE OF SERVICE: 01/14/19 HISTORY: Patient is a 58 -year-old , male, with a history of schizoaffective d/o followed at [facility] who presented to ED endorsing VH of "neon spirals and bus," AH of "whispers" he could not make out, and extremity tremors that first started with im invega sustenna 234mg qmonth and worsened once switch to im invega trinza 819mg [id number]. Pt also endorsed odd somatic delusions/associations of "brain cells dying" and "water in ears" when answering questions about his past medical history in the ED. Pt feared for his safe per ED due to AVH. VITAL SIGNS: See below. NEW TEST RESULTS: See below CURRENT MEDICATIONS: See below. MENTAL STATUS EXAMINATION: Patient is a 58-year old male, who is alert, cooperative, laying in bed. Speech: Is monotone, slow, a little slurred. Language skills are fair. Thought processes including: linear, coherent Thought content: worrisome thoughts about his kidney function Description of abnormal or psychotic thoughts: denies SI, denies HI, denies AV hallucinations Judgment: fair Insight: fair Orientation: x 3 Recent and remote memory: fair Attention span and concentration: fair Language: Portuguese Fund of knowledge: average Mood: depressed. Affect: flat, constricted, congruent with mood. DIAGNOSES: Schizoaffective D/O Cognitive d/o vs. Psychosis (not related to hx schizoaffective d/o) secondary GME iatrogenic effects of invega ASSESSMENT: Mental status exam has not changed much from yesterday. Patient continues to show flat affect but he says that he is feeling better, he is drinking water, he is still worried about his kidney problems. He is denying auditory/visual hallucinations, denies thought delusions, denies SI/HI. Patient is cooperative and he is compliant with treatment. MANAGEMENT PLAN: will continue with treatment plan as per Dr. Little. TIME SPENT: 15 minutes. Vital Signs Vital Signs Date Time Temp Pulse Resp B/P (MAP) Pulse Ox O2 Delivery O2 Flow Rate FiO2 01/14/19 17:23 64 116/69 01/14/19 06:35 97.4 16 01/10/19 08:27 Room Air 01/09/19 22:57 99 Laboratory Data 24H Labs Laboratory Tests 2 01/13/19 20:17: Bedside Glucose (Misc Panel) 295H 01/14/19 06:34: Bedside Glucose (Misc Panel) 245H 01/14/19 12:08: Bedside Glucose (Misc Panel) 250H 01/14/19 17:16: Bedside Glucose (Misc Panel) 434H Current Medications Current Medications Acetaminophen (Tylenol Tab) 650 mg Q6HP PRN PO HEADACHE or DISCOMFORT Last admi nistered on 01/12/19 20:02; Start 01/09/19 at 23:15 Al Hydrox/Mg Hydrox/Simethicone (Mylanta) 30 ml Q4HP PRN PO HEARTBURN/INDIG ESTION; Start 01/09/19 at 23:15 Amantadine HCl (Symmetrel) 100 mg DAILY@1200 PO Last administered on 01/14/19 12:11; Start 01/10/19 at 12:00 Amantadine HCl (Symmetrel) 200 mg DAILY@0800 PO Last administered on 01/14/19 08:13; Start 01/10/19 at 08:00 Apixaban (Eliquis) 5 mg BID PO Last administered on 01/14/19 08:14; Start 01/10/19 at 09:00 Aripiprazole (AbiLIFY) 5 mg BID PO Last administered on 01/14/19 08:14; Start 01/10/19 at 09:00 Atorvastatin Calcium (Lipitor) 10 mg QHS PO Last administered on 01/13/19 20:20; Start 01/10/19 at 21:00 Buspirone HCl (Buspar) 30 mg BID@0800,1700 PO Last administered on 01/14/19 17:23; Start 01/10/19 at 08:00 Chlorthalidone (Hygroton, Chlorthalidone) 12.5 mg DAILY PO Last administered on 01/14/19 08:13; Start 01/10/19 at 09:00 Dextrose (Dextrose 50%) 25 ml ASDIRECTED PRN IV SEE LABEL COMMENTS; Start 01/10/19 at 04:00 Duloxetine HCl (Cymbalta) 60 mg DAILY PO Last administered on 01/14/19 08:14; Start 01/10/19 at 09:00 Fluticasone Propionate (Flonase 0.05% Nasal [place]) 1 SPRAY IN EACH NOSTRIL DAILY NA Last administered on 01/14/19 08:12; Start 01/10/19 at 09:00 Gabapentin (Neurontin) 600 mg TID PO Last administered on 01/14/19 15:27; Start 01/10/19 at 09:00 Glipizide (Glucotrol) 2.5 mg DAILY@0730 PO Last administered on 01/14/19at 06:36; Start 01/11/19 at 13:00 Glipizide (Glucotrol) 2.5 mg DAILY@0730 PO ; Start 01/11/19 at 13:00; Status Cancel Glucagon (Glucagon) 1 mg ASDIRECTED PRN SC SEE LABEL COMMENTS; Start 01/10/19 at 04:00 Glucose (Glucose) 16 GM ASDIRECTED PRN PO SEE LABEL COMMENTS; Start 01/10/19 at 04:00 Home Med (Med Rec Complete!) ASDIRECTED XX ; Start 01/10/19 at 00:00; Stop 01/10/19 at 00:04; Status DC Hydroxyzine HCl (Atarax) 100 mg QHS PO Last administered on 01/13/19 20:20; Start 01/10/19 at 21:00 Insulin Human Lispro (HumaLOG INSULIN) See Protocol Table AC SC Last administered on 01/14/19 17:21; Start 01/10/19 at 07:30 Insulin Human Lispro (HumaLOG INSULIN) See Protocol Table QHS SC Last administered on 01/13/19at 20:22; Start 01/10/19 at 21:00 Lactobacillus Acidophilus (Bacid) 1 ea DAILY PO Last administered on 01/14/19 08:13; Start 01/10/19 at 09:00 Levothyroxine Sodium (Synthroid) 112 mcg DAILY@0600 PO Last administered on 01/14/19 06:35; Start 01/10/19 at 06:00 Lisinopril (Prinivil) 10 mg DAILY PO Last administered on 01/14/19 08:14; Start 01/10/19 at 09:00 Loratadine (Claritin) 10 mg DAILY@1700 PO Last administered on 01/14/19 17:23; Start 01/10/19 at 17:00 Magnesium Hydroxide (Milk Of Magnesia) 30 ml DAILYPRN PRN PO CONSTIPATION; Start 01/09/19 at 23:15 Metformin HCl (Glucophage) 1,000 mg BID@0800,1800 PO Last administered on 01/10/19 08:13; Start 01/10/19 at 08:00; Stop 01/10/19 at 15:15; Status DC Metoprolol Tartrate (Lopressor) 50 mg BID@0800,1700 PO Last administered on 01/14/19at 17:23; Start 01/10/19 at 08:00 Nicotine (Nicoderm Cq 21mg) 1 patch DAILY PRN TD [place]; Start 01/09/19 at 23:15 Omeprazole (PriLOSEC) 40 mg DAILY PO Last administered on 01/14/19 08:13; Start 01/10/19 at 09:00 Propranolol HCl (Inderal) 10 mg TID PO Last administered on 01/14/19 15:27; Start 01/10/19 at 21:00 Quetiapine Fumarate (SEROquel) 50 mg QHS PO Last administered on 01/13/19at 20:20; Start 01/10/19 at 21:00 Spironolactone (Aldactone) 12.5 mg DAILY PO Last administered on 01/14/19 08:13; Start 01/10/19 at 09:00 Trazodone HCl (Desyrel) 50 mg QHSP PRN PO INSOMNIA; Start 01/09/19 at 23:15 Allergies Coded Allergies: Penicillins (Verified Allergy, Unknown, 01/04/19) mesalamine (Verified Allergy, Unknown, lialda, 01/04/19) fluoxetine (Verified Adverse Reaction, Mild, hallucinations, 01/04/19) KUNAL JENKINS MD January 14, 2019 20:11
[2019-01-14] MEDS: ATORVASTATIN 10 MG TAB PO SCH (20:36)
[2019-01-14] MEDS: QUEtiapine FUMARATE 50 MG TAB PO SCH (20:36)
[2019-01-14] MEDS: hydrOXYzine 50 MG TAB PO SCH (20:36)
[2019-01-14] MEDS: ACETAMINOPHEN TAB 650MG DOSE (2X325MG) PO PRN (21:03)
[2019-01-15] MEDS: LEVOTHYROXINE 112MCG TABLET (0.112MG) PO SCH (06:23)
[2019-01-15 06:44] VITALS: BP 118/62
[2019-01-15] MEDS: HumaLOG INSULIN (NovoLOG) PER UNIT SC SCH (06:50)
[2019-01-15] MEDS: glipiZIDE (GLUCOTROL) 5 MG TAB PO SCH (08:07)
[2019-01-15] MEDS: PILL CRUSHER/CUTTER 1 EACH XX PRN (08:07)
[2019-01-15] MEDS: APIXABAN 5 MG TAB (ELIQUIS) PO SCH (08:31)
[2019-01-15] MEDS: AMANTADINE 100 MG CAP PO SCH (08:31)
[2019-01-15] MEDS: OMEPRAZOLE 20 MG CAP PO SCH (08:31)
[2019-01-15] MEDS: FLUTICASONE PROP 0.05% NASAL SPRAY 16 GM (FLONASE) SCH (08:31)
[2019-01-15] MEDS: METOPROLOL TART 50 MG TAB PO SCH (08:32)
[2019-01-15] MEDS: CHLORTHALIDONE 12.5MG PER 1/2 TABLET PO SCH (08:32)
[2019-01-15] MEDS: LISINOPRIL 10 MG TAB PO SCH (08:32)
[2019-01-15] MEDS: DULoxetine 30 MG CAP (CYMBALTA) PO SCH (08:32)
[2019-01-15] MEDS: GABAPENTIN 300 MG CAP PO SCH (08:32)
[2019-01-15 08:33] VITALS: BP 118/62
[2019-01-15] MEDS: LACTOBACILLUS ACIDOPHILUS CAP (BACID) PO SCH (08:33)
[2019-01-15] MEDS: busPIRone 5 MG TAB PO SCH (08:33)
[2019-01-15] MEDS: PROPRANOLOL 10 MG TAB PO SCH (08:33)
[2019-01-15] MEDS: SPIRONOLACTONE 12.5MG PER 1/2 TABLET PO SCH (08:36)
[2019-01-15] MEDS ORDERED: AMAN100T PO (09:18)
[2019-01-15] MEDS ORDERED: PROP10TA56 PO (09:18)
[2019-01-15] MEDS ORDERED: QUET5TAB PO (09:18)
[2019-01-15] MEDS ORDERED: DULO20CA27 PO (09:18)
[2019-01-15] MEDS ORDERED: ABIL1TAB11 PO (09:18)
[2019-01-15] MEDS ORDERED: BUSP15TA47 PO (09:18)
[2019-01-15] MEDS ORDERED: HYDR50CA2 PO (09:18)
--- NOTE | 2019-01-15 09:18 | MHDSPDOC ---
[facility] Discharge Summary Discharge Summary DATE OF ADMISSION: Jan 09, 2019 at 11:12 pm DATE OF DISCHARGE: January 15, 2019 DISCHARGE DIAGNOSES: Schizoaffective D/O Cognitive d/o (not related to hx schizoaffective d/o) secondary GME iatrogenic effects of invega) now resolved REASON FOR ADMISSION: Patient is a 58 -year-old , male, with a history of schizoaffective d/o followed at [facility] who presented to ED endorsing VH of "neon spirals and bus," AH of "whispers" he could not make out, and extremity tremors that first started with im invega sustenna 234mg qmonth and worsened once switch to im invega trinza 819mg [id number]. Pt also endorsed odd somatic delusions/associations of "brain cells dying" and "water in ears" when answering questions about his past medical history in the ED. Pt feared for his safe per ED due to AVH. CONSULTANTS INVOLVED: Medicine LABS: Glomerular Filtration Rate > 60.0, Blood Urea Nitrogen 17, Creatinine 1.29. rest of cmp/cbc roughly within normal limits. CPK 156 (normal) TREATMENT AND PROGRESS ON THE UNIT : Pt was admitted to [facility], seen for psychiatric assessment and in assess his symptoms and when they began (after invega sustenna and worse with invega trinza) believed symptoms and lab derangements (increased Cr) secondary invega and therefore discussed with pt treating his side effect symptoms with inderal 10mg tidd for tremor and abilify (liver metabolized) 5mg bid. Pt's symptoms improved with medications that he tolerated well and his labs improved to normal limits. He was restarted on the rest his outpatient medication. Pt found his medications beneficial and tolerated them well. He attended groups daily during his stay. His symptoms improved with treatment. On day of discharge he denied depression, anxiety, insomnia, SI/HI, hallucinations, delusions. He was discharged home with follow- up at [facility] He felt safe for discharge. DISCHARGE ASSESSMENT: Pt seen and states he feels "good" today and his symptoms of hand tremors and AH are resolved with inderal and abilify that he's tolerating well and feels are beneficial. States he's looking forward to going home today. Reminded to never take invega again. Renal labs are improved to normal and pt is making sure to stay hydrated thru drink water thru out the day. Denies depression, anxiety, insomnia, SI/HI, AH, delusions. Feels safe to be discharged home. MENTAL STATUS EXAMINATION ON DISCHARGE: General Appearance: well groomed, appears stated age, hospital scrubs/clothing Build: overweight Demeanor: average Eye Contact: average Activity: average Behavior: cooperative Speech: spontaneous, reg/rate,rhythm,volume Mood: euthymic, full Mood "good" Affect: euthymic, full, bright Thought Process: concrete, linear, logical, future oriented Thought Content (Delusions): Denies SI/HI, AVH Thought Content (Other): appropriate, coherent Thought Content (Aggressive): none reported Perception (Hallucinations): none reported Perception (Other): none reported Cognition (Impairment of): none reported Oriented: Awake, Alert, Oriented times three Insight: good Judgment: good Psychosis: none reported MEDICATIONS ON DISCHARGE: abilify mg bid. inderal 10mg tid Amantadine 100 mg DAILY@1200 and 200 mg DAILY@0800 Buspar 30 mg BID@0800,1700 Cymbalta 60 mg DAILY Gabapentin 600 mg TID Hydroxyzine 100 mg QHS SEROquel 50 mg QHS PLAN/FOLLOWUP ARRANGEMENTS: d/c home with follow-up at [facility] The amount of time spent in the coordination of care for this patient was approx imately 30 minutes. Vital Signs/I&Os Vital Signs Date Time Temp Pulse Resp B/P (MAP) Pulse Ox O2 Delivery O2 Flow Rate FiO2 01/15/19 08:33 60 118/62 01/15/19 06:44 97.5 14 01/10/19 08:27 Room Air 01/09/19 22:57 99 Laboratory Data Labs 24H Laboratory Tests 2 01/14/19 12:08: Bedside Glucose (Misc Panel) 250H 01/14/19 17:16: Bedside Glucose (Misc Panel) 434H 01/14/19 20:31: Bedside Glucose (Misc Panel) 362H 01/15/19 06:28: Bedside Glucose (Misc Panel) 307H Medications Scheduled Adalimumab (Humira Pen) 40 Mg/0.8 Ml Kit, 40 MG SC Q2WK, (Reported) Amantadine HCl (Amantadine) 100 Mg Tablet, 200 MG PO DAILY, (Reported) Amantadine HCl (Amantadine) 100 Mg Tablet, 100 MG PO DAILY, (Reported) TAKES @ NOON Apixaban (Eliquis) 5 Mg Tablet, 5 MG PO BID, (Reported) Atorvastatin Calcium (Atorvastatin Calcium) 10 Mg Tab, 10 MG PO QHS, (Reported) Buspirone HCl (Buspirone HCl) 15 Mg Tablet, 30 MG PO BID, (Reported) 0800,1700 Chlorthalidone (Chlorthalidone) 25 Mg Tablet, 12.5 MG PO DAILY, (Reported) Duloxetine HCl (Duloxetine HCl) 20 Mg Capsule.dr, 20 MG PO DAILY, (Reported) TAKE WITH 60MG CAP. 80MG TOTAL Duloxetine Hcl (Duloxetine HCl) 60 Mg Capsule.dr, 60 MG PO DAILY, (Reported) TAKE WITH 20MG CAP. 80MG TOTAL Fluticasone Propionate (Flonase Allergy Relief) 9.9 Ml [place].susp, 1 SPRAY NA DAILY, (Reported) Gabapentin (Gabapentin) 600 Mg Tablet, 600 MG PO TID, (Reported) 0800,1200,1700 Hydroxyzine Pamoate (Hydroxyzine Pamoate) 50 Mg Capsule, 100 MG PO QHS, (Reported) Insulin Glargine,Hum.rec.anlog (Basaglar Kwikpen U-100) 100 Unit/Ml Inj, 50 UNITS SC QHS, (Reported) Insulin Lispro (Admelog) 100 Unit/1 Ml Vial, 1 DOSE SC ACHS, (Reported) PER SLIDING SCALE L.acidoph/L.bulg/B.bif/S.therm (Bacid Caplet) 1 Each Tablet, 2 TAB PO DAILY, (Reported) Levothyroxine Sodium (Synthroid) 112 Mcg Tab, 112 MCG PO DAILY, (Reported) Lisinopril (Lisinopril) 10 Mg Tablet, 10 MG PO DAILY, (Reported) Loratadine (Loratadine) 10 Mg Tab, 10 MG PO QPM, (Reported) TAKES @ 1700 Metformin HCl (Metformin HCl) 1,000 Mg Tab, 1,000 MG PO BID, (Reported) 0800,1700 Metoprolol Tartrate (Metoprolol Tartrate) 50 Mg Tab, 50 MG PO BID, (Reported) 0800,1700 Omeprazole (Omeprazole) 40 Mg Cap, 40 MG PO DAILY, (Reported) Paliperidone Palmitate (Invega Trinza) 819 Mg/2.625 Ml Syringe, 819 MG IM Q3M, (Reported) PATIENT STATES LAST DOSE WAS IN DECEMBER Quetiapine Fumarate (Quetiapine Fumarate) 50 Mg Tablet, 50 MG PO QHS, (Reported) Spironolactone (Spironolactone) 25 Mg Tab, 12.5 MG PO DAILY for 30 Days, #30 (Reported) Allergies Coded Allergies: Penicillins (Verified Allergy, Unknown, 01/04/19) mesalamine (Verified Allergy, Unknown, lialda, 01/04/19) fluoxetine (Verified Adverse Reaction, Mild, hallucinations, 01/04/19) RADHA BERRY DO January 15, 2019 9:18 am
== END 2019-01-15 11:55 | disposition home or self-care (01) | DRG 750 ==
LOC: M ED 18:34 → M ED INP 23:12 → M PSY 01-10 01:06
PROVIDERS: ADMIT Psychiatry & Neurology Psychiatry; ATTEND Psychiatry & Neurology Psychiatry
DX: F25.9 Schizoaffective disorder, unspecified (principal); E11.22 Type 2 diabetes mellitus with diabetic chronic kidney disease; I48.0 Paroxysmal atrial fibrillation; K50.90 Crohn's disease, unspecified, without complications; I13.0 Hypertensive heart and chronic kidney disease with heart failure and stage 1 through stage 4 chronic kidney disease, or unspecified chronic kidney disease; E11.40 Type 2 diabetes mellitus with diabetic neuropathy, unspecified; I50.32 Chronic diastolic (congestive) heart failure; G25.1 Drug-induced tremor; N18.3 Chronic kidney disease, stage 3 (moderate); E78.5 Hyperlipidemia, unspecified; E66.9 Obesity, unspecified; G47.33 Obstructive sleep apnea (adult) (pediatric); J45.40 Moderate persistent asthma, uncomplicated; E03.9 Hypothyroidism, unspecified; T43.595A Adverse effect of other antipsychotics and neuroleptics, initial encounter; K21.9 Gastro-esophageal reflux disease without esophagitis; M48.061 Spinal stenosis, lumbar region without neurogenic claudication; Z79.01 Long term (current) use of anticoagulants; Z79.4 Long term (current) use of insulin; Z79.899 Other long term (current) drug therapy; Z88.0 Allergy status to penicillin; Z88.8 Allergy status to other drugs, medicaments and biological substances

== ENCOUNTER → 2019-01-23 | Outpatient (REF) | payer OTHER ==
[~2019-01-23] MED LIST changes: +ABIL1TAB11 PO; +BACITAB PO; +FLON1SPR; +PROP10TA56 PO
[2019-01-23 20:29] LABS: ALBUMIN 3.7 GM/DL (3.2-5.2); BLOOD UREA NITROGEN 16 MG/DL (7-18); CALCIUM LEVEL 8.5 MG/DL (8.5-10.1); CARBON DIOXIDE LEVEL 27 MEQ/L (21-32); CHLORIDE LEVEL 101 MEQ/L (98-107); CREATININE FOR GFR 1.28 MG/DL (0.70-1.30); GLOMERULAR FILTRATION RATE > 60.0 (>56); GLUCOSE, FASTING 134 MG/DL (70-100); POTASSIUM SERUM 4.6 MEQ/L (3.5-5.1); SODIUM LEVEL 137 MEQ/L (136-145)
== END ==
LOC: M SFHCADAM 15:33
PROVIDERS: ATTEND Physician Assistant Medical
DX: E11.42 Type 2 diabetes mellitus with diabetic polyneuropathy (principal); E83.42 Hypomagnesemia